=== PATIENT | male | born 1955 | race Caucasian/White ===

== ENCOUNTER → 2021-08-25 13:13 | Outpatient (BNVA) | payer BC, SELFPAY | PROVIDERS: PCP Physician Assistant Medical; Visit Provider Hospitalist | DX: U07.1 COVID-19 (principal); J84.10 Pulmonary fibrosis, unspecified | CPT/HCPCS: 94618 ==

== ENCOUNTER 2021-08-30 13:48 | Outpatient (REF) | payer BC, SELFPAY ==
--- NOTE | ~2021-08-30 | XR_ITS ---
EXAMINATION: XR CHEST CLINICAL INFORMATION: Pulmonary fibrosis. COMPARISON: None TECHNIQUE: 2 views of the chest were obtained. FINDINGS: The lungs are well-expanded with increased bilateral parahilar markings. No consolidation. The heart size is enlarged. There is moderate spondylosis dorsal spine. No lytic process. XR/XR chest 2V IMPRESSION: Moderate bilateral parahilar markings likely chronic interstitial changes. No acute pneumonic consolidation.
--- NOTE | 2021-08-30 14:36 | PFT_ITS ---
FLOWS: FEV1 80% of predicted at 2.32 L. FVC 67% of predicted at 2.61 L. FEV1 to FVC ratio of 0.89. No bronchodilator response except in small to medium airways. LUNG VOLUMES: Total lung capacity 61% of predicted at 3.80 L. Residual volume 60% of predicted at 1.30 L. Slow vital capacity 61% of predicted at 2.50 L. Expiratory reserve volume 12% of predicted at 0.13 L. Diffusion capacity is mildly decreased, diffusion capacity corrects to normal after adjustment for alveolar ventilation. IMPRESSION: Mild restrictive ventilatory defect with no bronchodilator response except in small to medium airways. Decreased expiratory reserve volume suggests extrathoracic restriction, likely secondary to abdominal obesity. MD TEETEE Allen/MODL / [id number]
== END 2021-08-30 13:49 | disposition home or self-care (01) ==
LOC: HO.RESP 13:48
PROVIDERS: PCP Physician Assistant Medical; Visit Provider Hospitalist
DX: J84.10 Pulmonary fibrosis, unspecified (principal); U07.1 COVID-19; F17.210 Nicotine dependence, cigarettes, uncomplicated; Z79.899 Other long term (current) drug therapy
CPT/HCPCS: 71046; 94060; 94727; 94729

== ENCOUNTER → 2021-09-22 10:32 | Outpatient (BNVA) | payer BC, SELFPAY | PROVIDERS: PCP Physician Assistant Medical; Visit Provider Hospitalist | DX: J84.10 Pulmonary fibrosis, unspecified (principal); J98.4 Other disorders of lung; U07.1 COVID-19; Z99.81 Dependence on supplemental oxygen | CPT/HCPCS: 99212 ==

== ENCOUNTER → 2021-11-20 13:31 | Outpatient (BNVA) | payer BC, SELFPAY | PROVIDERS: PCP Physician Assistant Medical; Visit Provider Hospitalist | DX: U07.1 COVID-19 (principal) ==

== ENCOUNTER → 2022-03-13 10:49 | Outpatient (BNVA) | payer MEDICARE, SELFPAY | PROVIDERS: PCP Physician Assistant Medical; Visit Provider Hospitalist | DX: J84.10 Pulmonary fibrosis, unspecified (principal); J98.4 Other disorders of lung; J41.8 Mixed simple and mucopurulent chronic bronchitis; R60.0 Localized edema | CPT/HCPCS: 94618; 99212 ==

== ENCOUNTER 2022-03-19 07:41 | Outpatient (REF) | payer MEDICARE, SELFPAY ==
--- NOTE | ~2022-03-19 | CT_ITS ---
EXAMINATION: CT CHEST WITHOUT CONTRAST CLINICAL INFORMATION: Pulmonary fibrosis COMPARISON: Previous chest x-ray August 2021 TECHNIQUE: Multidetector volumetric CT imaging of the chest was done including thin cut high-resolution imaging.. Axial MIP volume rendering provided. Sagittal and coronal reformatted images were obtained. This CT examination was performed using dose optimization techniques as appropriate, variously including the following: *Automated exposure control *Adjustment of mA and/or kV according to patient size (this includes techniques or standardized protocols for targeted exams where dose is matched to indication/reason for exam; i.e. extremities or head) *Use of iterative reconstruction technique DLP: 384 mGy-cm FINDINGS: LUNGS: The lung volumes are low. There are scattered areas of increased groundglass attenuation and interstitial increased interstitial markings. This is seen diffusely throughout the lungs. No bronchiectasis or honeycombing. No endobronchial or endotracheal lesion. There is a 3 mm left upper lobe nodule axial image 93 series 8. There is question of a 6 x 8 mm perivascular right lower lobe nodule axial image 158 series 8. MEDIASTINUM: The mediastinum is normal. CORONARY ARTERY CALCIFICATION: Mild coronary artery calcification. PLEURA: There is no pleural effusion. No pleural mass or thickening. AXILLA: No lymphadenopathy. UPPER ABDOMEN: Left renal cysts. Diverticulosis of the colon. OSSEOUS STRUCTURES: Degenerative changes of the spine. CT/CT chest wo IV con IMPRESSION: Low lung volumes and evidence of interstitial lung disease with increased diffuse areas of increased groundglass attenuation and interstitial markings. Question 6 x 8 mm right lower lobe nodule versus vessel dilatation. Follow-up contrast-enhanced chest CT recommended. 3 mm left upper lobe nodule. Fleischner guidelines were followed.
== END 2022-03-19 07:42 | disposition home or self-care (01) ==
LOC: HO.CT 07:41
PROVIDERS: PCP Physician Assistant Medical; Visit Provider Hospitalist
DX: J84.10 Pulmonary fibrosis, unspecified (principal); J98.4 Other disorders of lung; R05.9 Cough, unspecified; R06.00 Dyspnea, unspecified
CPT/HCPCS: 71250

== ENCOUNTER → 2022-05-04 10:44 | Outpatient (BNVA) | payer MEDICARE, SELFPAY | PROVIDERS: PCP Physician Assistant Medical; Visit Provider Hospitalist | DX: R06.00 Dyspnea, unspecified (principal); U09.9 Post COVID-19 condition, unspecified; R91.1 Solitary pulmonary nodule; J18.9 Pneumonia, unspecified organism; J98.4 Other disorders of lung; J41.8 Mixed simple and mucopurulent chronic bronchitis; J84.9 Interstitial pulmonary disease, unspecified; R60.0 Localized edema; J84.10 Pulmonary fibrosis, unspecified | CPT/HCPCS: 99212 ==

== ENCOUNTER 2022-07-05 09:00 | Outpatient (REF) | payer MEDICARE, SELFPAY ==
--- NOTE | ~2022-07-05 | CT_ITS ---
EXAMINATION: CT CHEST WITHOUT CONTRAST CLINICAL INFORMATION: Solitary pulmonary nodule. COMPARISON: CT chest 03/19/2022. TECHNIQUE: Multidetector volumetric CT imaging of the chest was done. Axial MIP volume rendering provided. Sagittal and coronal reformatted images were obtained. This CT examination was performed using dose optimization techniques as appropriate, variously including the following: *Automated exposure control *Adjustment of mA and/or kV according to patient size (this includes techniques or standardized protocols for targeted exams where dose is matched to indication/reason for exam; i.e. extremities or head) *Use of iterative reconstruction technique DLP: 308 mGy-cm. 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 LUNGS: The lungs are well expanded and clear of acute pneumonic process. There is mild ground-glass attenuation seen in both upper lobes and lower lobes with some focal sparing along the lateral segment of right lower lobe. There is ill-defined 2 cm opacity left lung base on axial image 400/7, stable. A 7 mm perivascular nodule in right lower lobe on axial image 443/7 is noted. A 3 mL nodule left upper lobe peripherally based axial image 200/7, stable. No additional nodules seen. No acute consolidation. MEDIASTINUM: Heart size and the great vessels are normal caliber. No pericardial effusion seen. Central trachea and the bronchi are widely patent. No pericardial effusion seen. Thyroid lobes are symmetrical and normal. CORONARY ARTERY CALCIFICATION: There are trace coronary artery calcifications present. PLEURA: There is no pleural effusion. No pleural mass or thickening. AXILLA: Small shotty lymph nodes are seen in the axilla. The chest wall is unremarkable. UPPER ABDOMEN: Visualized liver, spleen, pancreas and bilateral adrenal glands are unremarkable. No radiopaque gallstone seen. There is a left renal cyst. OSSEOUS STRUCTURES: No aggressive lytic or sclerotic process seen. There is mild ventral spondylosis mid and dorsal spine. CT/CT chest wo IV con IMPRESSION: 1. Stable bilateral pulmonary nodules. Linear nodule along the left lung base is stable as well. Ground-glass changes in both upper lobes and lower lobes are stable. 2. No abnormal mediastinal or axillary lymph nodes seen. Fleischner guidelines were followed.
== END 2022-07-05 09:01 | disposition home or self-care (01) ==
LOC: HO.CT 09:00
PROVIDERS: PCP Physician Assistant Medical; Visit Provider Hospitalist
DX: R91.1 Solitary pulmonary nodule (principal); J18.9 Pneumonia, unspecified organism
CPT/HCPCS: 71250

== ENCOUNTER → 2022-07-31 09:02 | Outpatient (BNVA) | payer MEDICARE, SELFPAY | PROVIDERS: PCP Physician Assistant Medical; Visit Provider Hospitalist | DX: J44.9 Chronic obstructive pulmonary disease, unspecified (principal); U09.9 Post COVID-19 condition, unspecified; J98.4 Other disorders of lung; J41.8 Mixed simple and mucopurulent chronic bronchitis; J18.9 Pneumonia, unspecified organism; J84.9 Interstitial pulmonary disease, unspecified; J84.10 Pulmonary fibrosis, unspecified; R91.1 Solitary pulmonary nodule; R60.0 Localized edema | CPT/HCPCS: 99212 ==

== ENCOUNTER 2022-09-27 09:59 | Outpatient (REF) | payer MEDICARE, SELFPAY ==
--- NOTE | 2022-09-27 11:56 | PFT_ITS ---
Forced vital capacity 62%, FEV1 71%, FEV1/FVC ratio is 84. [id number] 107% and MVV is 87%. Post bronchodilator therapy, no significant changes noted. Total lung capacity 63% and residual volume 53%. Diffusion capacity 86%. CONCLUSION: These results are consistent with moderately severe restrictive pulmonary disorder. No significant obstructive disorder. No significant response to bronchodilator therapy. Clinical correlation is recommended. MD KENNA Chowdary/TOY / [id number]
== END 2022-09-27 10:00 | disposition home or self-care (01) ==
LOC: HO.RESP 09:59
PROVIDERS: Visit Provider Hospitalist
DX: J84.9 Interstitial pulmonary disease, unspecified (principal)
CPT/HCPCS: 94060; 94727; 94729

== ENCOUNTER → 2022-12-24 15:30 | Outpatient (BNVA) | payer MEDICARE, SELFPAY | PROVIDERS: PCP Physician Assistant Medical; Visit Provider Hospitalist | DX: C76.0 Malignant neoplasm of head, face and neck (principal); J98.4 Other disorders of lung; J84.9 Interstitial pulmonary disease, unspecified; J96.00 Acute respiratory failure, unspecified whether with hypoxia or hypercapnia; J84.10 Pulmonary fibrosis, unspecified; U09.9 Post COVID-19 condition, unspecified; R13.10 Dysphagia, unspecified; R91.1 Solitary pulmonary nodule; Z99.81 Dependence on supplemental oxygen; Z92.3 Personal history of irradiation | CPT/HCPCS: 99212 ==

== ENCOUNTER 2023-04-29 09:35 | Outpatient (AMB) | payer MEDICARE, SELFPAY ==
[2023-04-29 09:35] VITALS: BP 132/72; PULSE 82; O2SAT 97; BMI 35.4
--- NOTE | 2023-04-29 09:35 | A.OFFVIS_ITS ---
Intake Vital Signs 04/29/23 09:35 Height 5 ft 6 in Weight 219 lb 5.759 oz BMI 35.4 BP 132/72 Blood Pressure Location Rt brachial Position Sitting Pulse 82 Pulse Source Doppler Pulse Oximetry (%) 97 Oxygen Delivery Method Room Air Intake Visit Reasons: chronic bronchitis Allergies lisinopril Allergy (Unknown, Verified 04/29/23 09:39) Unknown HPI HPI Comments History of Present Illness Details The patient is a 67-year-old gentleman who apparently was in her usual state health until back in May when he started developing respiratory complaints. He was diagnosed with COVID-19. He developed severe respiratory failure required ICU level of care. The patient did have bilateral COVID pneumonia. He was subsequently intubated and was kept in the ICU. Ultimately able to get liberated from the ventilator and placed on oxygen then the patient was sent to rehab where he was able to wean off oxygen. Patient overall is doing a lot better. He still working on his strength. He still has dyspnea on exertion moderate severity specially will going up a hill or flight of stairs. He had been working with physical therapy both for his weakness and also because of a sciatica pain. We did review his imaging studies from [facility] demonstrating bilateral airspace disease and likely some degree of scarring building up at the bases. On examination he also has some crackles at the bases suggesting that he does have some the pulmonary fibrosis. The patient did have a walking oximetry in the office he was able to maintain his pulse ox above 90%. The patient does not qualify for oxygen with activity. I will be testing him overnight to assess his oxygen requirements at nighttime while sleeping. The patient will undergo pulmonary function studies and will be appropriate candidate for pulmonary rehab to continue to treat him for his COVID-19. 05/04/2022 the patient is here for a pulm onary follow-up visit. Patient continues to have some dyspnea on exertion. [id number] severity. Not any better after using the Trelegy inhaler. Denies any significant chest pains or wheezing. Does have intermittent coughing. He did have a repeat CT scan in March 2022 that were personally reviewed in the office. He appears to have areas of ground-glass opacities bilaterally without any significant fibrosis. In addition to this he does have a new 6 x 8 mm pulmonary nodule. Therefore ba sed on the fact that he has significant symptoms along with the significant findings on the CT scan will go ahead and place him on some prednisone to see if we can relieve some of the information the patient is going to hold off on the Trelegy. Will plan to repeat the CT scan in 3 months follow-up with the pulmonary nodule finding. 07/31/2022 the patient is here for a pulm onary follow-up visit. He still complains of dyspnea on exertion. He has not been very active lately. He has not been exercising or rehabilitating. He did complete the prednisone. We did review his previous CT scan demonstrating the ground-glass opacities and pulmonary nodules. His most recent CT scan demonstrated interval improvement of the ground-glass opacities although now he does have reticular changes consis tent with the evolution of the pneumonitis now evolving into some scarring. Will have to see if this scarring continues to progress. If it does will consider antifibrotic agents. The pulmonary nodules appear to be stable which is reassuring. The patient also needs to go back to pulmonary rehabilitation as well. Will plan to follow-up with PFTs in the next 3-4 months. If we see any progression of his restrictive lung disease then will consider antifibrotic agents. 12/24/2022 the patient is here for a pulm onary follow-up visit. Since we last spoke he was diagnosed with head and neck cancer and just completed radiation therapy. He has significant dysphagia. He had to go to the ER because of significant dehydration. He was found to have significant hypokalemia and was given multiple infusions of IV potassium. He still has a hard time with swallow. He did follow-up with ENT today. He was started on antibiotics for what appears to be an abscess in his posterior pharynx or larynx. The patient also was given lighted cane rinses. We did talk about other alternatives including chlorhexidine mouthwash and prednisone. The patient is not better this should be contemplated with his ENT doctor. In meantime the patient has not had blood work since the will go ahead and give him additional blood work that he can do specially after starting antibiotics if he is not taking anything by mouth. He does have a follow-up with his primary care doctor next week as well. From a respiratory status the patient has not been using any of his nebulized treatments at this time. Clinically from a respiratory status he is doing okay. 04/29/2023 the patient is here for pulelsie figueroa follow-up visit. Overall the patient has been doing well. Completed radiation and is dysphagia is improved. He still has some taste changes. Although he has been able to to take in by mouth. The electrolyte issues have improved. The patient did have a PET scan demonstrating no evidence of any active cancer. Although it did show diverticulitis. He did develop abdominal pain went to [place] where he was again confirmed to have diverticulitis and treated with antibiotics. He did go again for a 2nd time with diverticulitis and now is on antibiotics. Does he was discharged over the weekend. He feels better overall. The patient was not offer surgery. He has continue the antibiotics and monitoring his oral intake. His respiratory status is stable. I will review the imaging studies to assess his interstitial lung disease. He does have the oxygen at nighttime that uses. I did encourage him to use it every night. Will do an overnight oximetry on room air in 3 months to see if he still needs it. He does have a history sleep apnea though so at some point if she still having symptoms he should get a potential sleep study to assess him for obstructive sleep apnea and need for CPAP therapy. COUNT INCLUDES THE [facility] Medical History (Updated 04/29/23 @ 20:37 by Noe Huffman MD) Head and neck cancer ILD (interstitial lung disease) Pneumonitis Pulmonary nodule Lower extremity edema Dyspnea Chronic bronchitis Cough Chronic restrictive lung disease COVID-19 Pulmonary fibrosis Social History Household Members: Spouse Household Members Other:: Kristen - Patient Tobacco Use Status: Never used Tobacco Second Hand Smoke Exposure: No Review of Systems Const Reports fatigue and Reports weight loss Eyes Denies change in vision ENT Denies dysphagia, Denies mouth lesions, Denies odynophagia and Denies sore throat Card Denies chest pain and Reports dyspnea on exertion Resp Reports cough, Denies hemoptysis, Reports dyspnea on exertion and Denies wheezing GI Reports as per HPI, Reports abdominal pain, Denies dysphagia and Denies odynophagia Musc Reports no additional complaints Skin/Breast Denies rash Endo Reports fatigue Aller/Immun Denies wheezing Physical Exam Vital Signs: Last Vital Signs Pulse 82 04/29/23 09:35 BP 132/72 04/29/23 09:35 Pulse Ox 97 04/29/23 09:35 Oxygen Delivery Method Room Air 04/29/23 09:35 BMI result Body Mass Index 35.4 Const General: alert Neck Neck: Yes normal visual inspection, Yes full ROM and Yes no lymphadenopathy Chest Chest palpation & inspection: normal inspection of the chest Resp Auscultation: no rhonchi, no wheezes and diminished lung sounds Cardio Rate: regular rate Rhythm: regular rhythm Heart sounds: S1 normal heart sound present and S2 normal heart sound present GI Palpation (GI): Soft to palpation and nontender Auscultation: normal bowel sounds Skin General skin exam: rashes and/or lesions noted Extrem General: Yes edema Assessment & Plan Assessment & Plan (1) Chronic restrictive lung disease: Comment: Moderate in severity Code(s): J98.4 - Other disorders of lung (2) Chronic bronchitis: Code(s): J42 - Unspecified chronic bronchitis Qualifiers: Chronic bronchitis type: mixed simple and mucopurulent Qualified Code(s): J41.8 - Mixed simple and mucopurulent chronic bronchitis (3) Pulmonary nodule: Comment: new 6x8 mm nodule Code(s): R91.1 - Solitary pulmonary nodule (4) ILD (interstitial lung disease): Code(s): J84.9 - Interstitial pulmonary disease, unspecified (5) Pulmonary fibrosis: Code(s): J84.10 - Pulmonary fibrosis, unspecified (6) Head and neck cancer: Comment: PET negative Code(s): C76.0 - Malignant neoplasm of head, face and neck Plan Continue oxygen 2 L at nighttime, overnight oximetry in 3 months consider an in lab PSG YOLANDA as needed nebs as needed F/U 6 months Orders: Orders Overnight Pulse Oximetry 3 Months J98.4 - Other disorders of lung Coding Level of Care Code Est Pt Level 4 (26492) Diagnoses Chronic restrictive lung disease J98.4 Mixed simple and mucopurulent chronic bronchitis J41.8 Chronic bronchitis type: mixed simple and mucopurulent Pulmonary nodule R91.1 ILD (interstitial lung disease) J84.9 Pulmonary fibrosis J84.10 Head and neck cancer C76.0 Time Spent (min) 17
== END 2023-04-29 10:00 | disposition home or self-care (01) ==
PROVIDERS: PCP Physician Assistant Medical; Visit Provider Hospitalist
DX: J98.4 Other disorders of lung (principal); J41.8 Mixed simple and mucopurulent chronic bronchitis; R91.1 Solitary pulmonary nodule; J84.9 Interstitial pulmonary disease, unspecified; J84.10 Pulmonary fibrosis, unspecified; C76.0 Malignant neoplasm of head, face and neck
CPT/HCPCS: 99214

== ENCOUNTER → 2023-04-29 09:35 | Outpatient (BNVA) | payer MEDICARE, SELFPAY | PROVIDERS: PCP Physician Assistant Medical; Visit Provider Hospitalist | DX: J98.4 Other disorders of lung (principal); J41.8 Mixed simple and mucopurulent chronic bronchitis; R91.1 Solitary pulmonary nodule; J84.9 Interstitial pulmonary disease, unspecified; J84.10 Pulmonary fibrosis, unspecified; C76.0 Malignant neoplasm of head, face and neck | CPT/HCPCS: 99212 ==

== ENCOUNTER 2023-10-21 09:27 | Outpatient (AMB) | payer MEDICARE, SELFPAY ==
[2023-10-21 10:23] VITALS: PULSE 85; O2SAT 97; BMI 36.5
--- NOTE | 2023-10-21 10:23 | A.OFFVIS_ITS ---
Vital Signs 10/21/23 10:23 Height 5 ft 6 in Weight 226 lb BMI 36.5 Pulse 85 Pulse Source Pulse Oximeter Pulse Oximetry (%) 97 Oxygen Delivery Method Room Air Intake Visit Reasons: chronic bronchitis Account Services Manager Required: No Allergies lisinopril Allergy (Unknown, Verified 10/21/23 10:24) Unknown HPI Comments Details: The patient is a 67-year-old gentleman who apparently was in her usual state health until back in May when he started developing respiratory complaints. He was diagnosed with COVID-19. He developed severe respiratory failure required ICU level of care. The patient did have bilateral COVID pneumonia. He was subsequently intubated and was kept in the ICU. Ultimately able to get liberated from the ventilator and placed on oxygen then the patient was sent to rehab where he was able to wean off oxygen. Patient overall is doing a lot better. He still working on his strength. He still has dyspnea on exertion moderate severity specially will going up a hill or flight of stairs. He had been working with physical therapy both for his weakness and also because of a sciatica pain. We did review his imaging studies from [facility] demonstrating bilateral airspace disease and likely some degree of scarring building up at the bases. On examination he also has some crackles at the bases suggesting that he does have some the pulmonary fibrosis. The patient did have a walking oximetry in the office he was able to maintain his pulse ox above 90%. The patient does not qualify for oxygen with activity. I will be testing him overnight to assess his oxygen requirements at nighttime while sleeping. The patient will undergo pulmonary function studies and will be appropriate candidate for pulmonary rehab to continue to treat him for his COVID-19. 05/04/2022 the patient is here for a pulmonary follow-up visit. Patient continues to have some dyspnea on exertion. Aore-en-tiffkoqf severity. Not any better after using the Trelegy inhaler. Denies any significant chest pains or wheezing. Does have intermittent coughing. He did have a repeat CT scan in March 2022 that were personally reviewed in the office. He appears to have areas of ground-glass opacities bilaterally without any significant fibrosis. In addition to this he does have a new 6 x 8 mm pulmonary nodule. Therefore based on the fact that he has significant symptoms along with the significant findings on the CT scan will go ahead and place him on some prednisone to see if we can relieve some of the information the patient is going to hold off on the Trelegy. Will plan to repeat the CT scan in 3 months follow-up with the pulmonary nodule finding. 07/31/2022 the patient is here for a pulmonary follow-up visit. He still complains of dyspnea on exertion. He has not been very active lately. He has not been exercising or rehabilitating. He did complete the prednisone. We did review his previous CT scan demonstrating the ground-glass opacities and pulmonary nodules. His most recent CT scan demonstrated interval improvement of the ground-glass opacities although now he does have reticular changes consistent with the evolution of the pneumonitis now evolving into some scarring. Will have to see if this scarring continues to progress. If it does will consider antifibrotic agents. The pulmonary nodules appear to be stable which is reassuring. The patient also needs to go back to pulmonary rehabilitation as well. Will plan to follow-up with PFTs in the next 3-4 months. If we see any progression of his restrictive lung disease then will consider antifibrotic agents. 12/24/2022 the patient is here for a pulmonary follow-up visit. Since we last spoke he was diagnosed with head and neck cancer and just completed radiation therapy. He has significant dysphagia. He had to go to the ER because of significant dehydration. He was found to have significant hypokalemia and was given multiple infusions of IV potassium. He still has a hard time with swallow. He did follow-up with ENT today. He was started on antibiotics for what appears to be an abscess in his posterior pharynx or larynx. The patient also was given lighted cane rinses. We did talk about other alternatives including chlorhexidine mouthwash and prednisone. The patient is not better this should be contemplated with his ENT doctor. In meantime the patient has not had blood work since the go ahead and give him additional blood work that he can do specially after starting antibiotics if he is not taking anything by mouth. He does have a follow-up with his primary care doctor next week as well. From a respiratory status the patient has not been using any of his nebulized treatments at this time. Clinically from a respiratory status he is doing okay. 04/29/2023 the patient is here for pulmonary follow-up visit. Overall the patient has been doing well. Completed radiation and is dysphagia is improved. He still has some taste changes. Although he has been able to to take in by mouth. The electrolyte issues have improved. The patient did have a PET scan demonstrating no evidence of any active cancer. Although it did show d iverticulitis. He did develop abdominal pain went to [facility] where he was again confirmed to have diverticulitis and treated with antibiotics. He did go again for a 2nd time with diverticulitis and now is on antibiotics. Does he was discharged over the weekend. He feels better overall. The patient was not offer surgery. He has continue the antibiotics and monitoring his oral intake. His respiratory status is stable. I will review the imaging studies to assess his interstitial lung disease. He does have the oxygen at nighttime that uses. I did encourage him to use it every night. Will do an overnight oximetry on room air in 3 months to see if he still needs it. He does have a history sleep apnea though so at some point if she still having symptoms he should get a potential sleep study to assess him for obstructive sleep apnea and need for CPAP therapy. 10/21/2023 the patient is here for pulmonary follow-up visit. Last several weeks the patient became sick with respiratory illness. He was seen by primary care doctor. Initially placed on antibiotics with only some improvement. Then he was started on some prednisone and his cough significantly improved. Now is completing a course of doxycycline. His all completed the prednisone. We did review his last CT scan back in July 2022 demonstrating pulmonary nodules and interstitial lung disease. The patient will require repeat CT scan this time. In meantime he has been using oxygen at nighttime at 2 L. the oxygen therapy has been affecting beneficial. We did also do an overnight oximetry the patient still qualify for oxygen. Therefore she continue the oxygen at this time. He does have an elevated Maramec score with daytime drowsiness 04/23. The patient will benefit from an in-lab sleep study. However the patient is reluctant at this time since he has had difficulty with CPAP in the past. He will consider it at this time. [facility] Medical History (Updated 04/29/23 @ 20:37 by Noe Huffman MD) Head and neck cancer ILD (interstitial lung disease) Pneumonitis Pulmonary nodule Lower extremity edema Dyspnea Chronic bronchitis Cough Chronic restrictive lung disease COVID-19 Pulmonary fibrosis Social History Household Members: Spouse Household Members Other:: Kristen - Patient Tobacco Use Status: Never used Tobacco Second Hand Smoke Exposure: No Review of Systems Const Reports daytime sleepiness, Reports fatigue and Reports weight loss Eyes Denies change in vision ENT Denies dysphagia, Denies mouth lesions, Denies odynophagia and Denies sore throat Card Denies chest pain and Reports dyspnea on exertion Resp Reports cough, Denies hemoptysis, Reports dyspnea on exertion and Denies wheezing GI Reports as per HPI, Reports abdominal pain, Denies dysphagia and Denies odynophagia Musc Reports no additional complaints Skin/Breast Denies rash Endo Reports fatigue Aller/Immun Denies wheezing Physical Exam Vital Signs: Last Vital Signs Pulse 85 10/21/23 10:23 Pulse Ox 97 10/21/23 10:23 Oxygen Delivery Method Room Air 10/21/23 10:23 BMI result Body Mass Index 36.5 Const General: alert Neck Neck: Yes normal visual inspection, Yes full ROM and Yes no lymphadenopathy Chest Chest palpation & inspection: normal inspection of the chest Resp Auscultation: no rhonchi, no wheezes and diminished lung sounds Cardio Rate: regular rate Rhythm: regular rhythm Heart sounds: S1 normal heart sound present and S2 normal heart sound present GI Palpation (GI): Soft to palpation and nontender Auscultation: normal bowel sounds Skin General skin exam: rashes and/or lesions noted Extrem General: Yes edema Assessment & Plan Assessment & Plan (1) Chronic restrictive lung disease: Comment: Moderate in severity Code(s): J98.4 - Other disorders of lung Category: Medical (2) Chronic bronchitis: Code(s): J42 - Unspecified chronic bronchitis Category: Medical Qualifiers: Chronic bronchitis type: mixed simple and mucopurulent Qualified Co de(s): J41.8 - Mixed simple and mucopurulent chronic bronchitis (3) Pulmonary nodule: Comment: new 6x8 mm nodule Code(s): R91.1 - Solitary pulmonary nodule Category: Medical (4) ILD (interstitial lung disease): Code(s): J84.9 - Interstitial pulmonary disease, unspecified Category: Medical (5) Pulmonary fibrosis: Code(s): J84.10 - Pulmonary fibrosis, unspecified Category: Medical (6) Head and neck cancer: Comment: PET negative Code(s): C76.0 - Malignant neoplasm of head, face and neck Category: Medical Plan Continue oxygen 2 L at nighttime consider an in lab PSG CT chest YOLANDA as needed nebs as needed Arexvy Fall 2023 F/U 6 months Orders: Orders CT chest wo IV con 6 Weeks R91.1 - Solitary pulmonary nodule Medications: Refilled ProAir HFA 90 mcg/actuation (albuterol sulfate) 2 puffs inhalation Q4H PRN 8.5 grams 11RF for wheezing NS
== END 2023-10-21 10:46 | disposition home or self-care (01) ==
PROVIDERS: PCP Physician Assistant Medical; Visit Provider Hospitalist
DX: J98.4 Other disorders of lung (principal); J41.8 Mixed simple and mucopurulent chronic bronchitis; R91.1 Solitary pulmonary nodule; J84.9 Interstitial pulmonary disease, unspecified; J84.10 Pulmonary fibrosis, unspecified; C76.0 Malignant neoplasm of head, face and neck
CPT/HCPCS: 99214

== ENCOUNTER → 2023-10-21 09:27 | Outpatient (BNVA) | payer MEDICARE, SELFPAY | PROVIDERS: PCP Physician Assistant Medical; Visit Provider Hospitalist | DX: J42 Unspecified chronic bronchitis (principal); J98.4 Other disorders of lung; R91.1 Solitary pulmonary nodule; J84.9 Interstitial pulmonary disease, unspecified; J84.10 Pulmonary fibrosis, unspecified; C76.0 Malignant neoplasm of head, face and neck | CPT/HCPCS: 99212 ==

== ENCOUNTER 2023-10-31 15:21 | Outpatient (AMB) | payer MEDICARE, SELFPAY ==
[2023-10-31 15:30] VITALS: PULSE 89; O2SAT 95; BMI 37.2
--- NOTE | 2023-10-31 15:30 | A.OFFVIS_ITS ---
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 He was diagnosed with COVID-19. He developed severe respiratory failure required ICU level of care. The patient did have bilateral COVID pneumonia. He was subsequently intubated and was kept in the ICU. Ultimately able to get liberated from the ventilator and placed on oxygen then the patient was sent to rehab where he was able to wean off oxygen. Patient overall is doing a lot better. He still working on his strength. He still has dyspnea on exertion moderate severity specially will going up a hill or flight of stairs. He had been working with physical therapy both for his weakness and also because of a sciatica pain. We did review his imaging studies from [facility] demonstrating bilateral airspace disease and likely some degree of scarring building up at the bases. On examination he also has some crackles at the bases suggesting that he does have some the pulmonary fibrosis. The patient did have a walking oximetry in the office he was able to maintain his pulse ox above 90%. The patient does not qualify for oxygen with activity. I will be testing him overnight to assess his oxygen requirements at nighttime while sleeping. The patient will undergo pulmonary function studies and will be appropriate candidate for pulmonary rehab to continue to treat him for his COVID-19. 05/04/2022 the patient is here for a pulmonary follow-up visit. Patient continues to have some dyspnea on exertion. Erbo-[id number]-[id number] severity. Not any better after using the Trelegy inhaler. Denies any significant chest pains or wheezing. Does have intermittent coughing. He did have a repeat CT scan in March 2022 that were personally reviewed in the office. He appears to have areas of ground-glass opacities bilaterally without any significant fibrosis. In addition to this he does have a new 6 x 8 mm pulmonary nodule. Therefore based on the fact that he has significant symptoms along with the significant findings on the CT scan will go ahead and place him on some prednisone to see if we can relieve some of the information the patient is going to hold off on the Trelegy. Will plan to repeat the CT scan in 3 months follow-up with the pulmonary nodule finding. 07/31/2022 the patient is here for a pulmonary follow-up visit. He still complains of dyspnea on exertion. He has not been very active lately. He has not been exercising or rehabilitating. He did complete the prednisone. We did review his previous CT scan demonstrating the ground-glass opacities and pu lmonary nodules. His most recent CT scan demonstrated interval improvement of the ground-glass opacities although now he does have reticular changes consistent with the evolution of the pneumonitis now evolving into some scarring. Will have to see if this scarring continues to progress. If it does will consider antifibrotic agents. The pulmonary nodules appear to be stable which is reassuring. The patient also needs to go back to pulmonary rehabilitation as well. Will plan to follow-up with PFTs in the next 3-4 months. If we see any progression of his restrictive lung disease then will consider antifibrotic agents. 12/24/2022 the patient is here for a pulmonary follow-up visit. Since we last spoke he was diagnosed with head and neck cancer and just completed radiation therapy. He has significant dysphagia. He had to go to the ER because of significant dehydration. He was found to have significant hypokalemia and was given multiple infusions of IV potassium. He still has a hard time with swallow. He did follow-up with ENT today. He was started on antibiotics for what appears to be an abscess in his posterior pharynx or larynx. The patient also was given lighted cane rinses. We did talk about other alternatives including chlorhexidine mouthwash and prednisone. The patient is not better this should be contemplated with his ENT doctor. In meantime the patient has not had blood work since the go ahead and give him additional blood work that he can do specially after starting antibiotics if he is not taking anything by mouth. He does have a follow-up with his primary care doctor next week as well. From a respiratory status the patient has not been using any of his nebulized treatments at this time. Clinically from a respiratory status he is doing okay. 04/29/2023 the patient is here for pulmonary follow-up visit. Overall the patient has been doing well. Completed radiation and is dysphagia is improved. He still has some taste changes. Although he has been able to to take in by mouth. The electrolyte issues have improved. The patient did have a PET scan demonstrating no evidence of any active cancer. Although it did show diverticu litis. He did develop abdominal pain went to [place] where he was again confirmed to have diverticulitis and treated with antibiotics. He did go again for a 2nd time with diverticulitis and now is on antibiotics. Does he was discharged over the weekend. He feels better overall. The patient was not offer surgery. He has continue the antibiotics and monitoring his oral intake. His respiratory s tatus is stable. I will review the imaging studies to assess his interstitial lung disease. He does have the oxygen at nighttime that uses. I did encourage him to use it every night. Will do an overnight oximetry on room air in 3 months to see if he still needs it. He does have a history sleep apnea though so at some point if she still having symptoms he should get a potential sleep study to assess him for obstructive sleep apnea and need for CPAP therapy. 10/21/2023 the patient is here for pulmonary follow-up visit. Last several weeks the patient became sick with respiratory illness. He was seen by primary care doctor. Initially placed on antibiotics with only some improvement. Then he was started on some prednisone and his cough significantly improved. Now is completing a course of doxycycline. His all completed the prednisone. We did review his last CT scan back in July 2022 demonstrating pulmonary nodules and interstitial lung disease. The patient will require repeat CT scan this time. In meantime he has been using oxygen at nighttime at 2 L. the oxygen therapy has been affecting beneficial. We did also do an overnight oximetry the patient still qualify for oxygen. Therefore she continue the oxygen at this time. He does have an elevated Nicolaus score with daytime drowsiness 04/23. The patient will benefit from an in-lab sleep study. However the patient is reluctant at this time since he has had difficulty with CPAP in the past. He will consider it at this time. 10/31/2023 the patient is here for sick visit. He has been having hard time with his breathing. He was evaluated back late September and at that point was having worsening respiratory symptoms he was prescribed doxycycline and also prednisone. However, the patient is no better. Now he is more congested. Moderate severity. The phlegm is greenish in color. In the office with significant wheezing we did provide him with 2 DuoNeb treatments in the he did improve. Therefore we held the Solu-Medrol. Still he is going to require additional prednisone and also will require nebulizer treatments 3 to 4 times a day. Will go ahead and place him Augmentin to treat him further for a lower respiratory bacterial infection. This is likely a postviral bacterial infection since he was sick several weeks ago. [facility] Medical History (Updated 10/31/23 @ 23:12 by Noe Huffman MD) COPD (chronic obstructive pulmonary disease) Head and neck cancer ILD (interstitial lung disease) Pneumonitis Pulmonary nodule Lower extremity edema Dyspnea Chronic bronchitis Cough Chronic restrictive lung disease COVID-19 Pulmonary fibrosis Social History Household Members: Spouse Household Members Other:: Kristen - Patient Tobacco Use Status: Never used Tobacco Second Hand Smoke Exposure: No Review of Systems Const Reports daytime sleepiness, Reports fatigue and Reports weight loss Eyes Denies change in vision ENT Denies dysphagia, Denies mouth lesions, Denies odynophagia and Denies sore throat Card Denies chest pain and Reports dyspnea on exertion Resp Reports change in phlegm color, Reports chest congestion, Reports cough, Denies hemoptysis, Reports excessive phlegm production, Reports dyspnea on exertion and Reports wheezing GI Reports as per HPI, Reports abdominal pain, Denies dysphagia and Denies odynophagia Musc Reports no additional complaints Skin/Breast Denies rash Endo Reports fatigue Aller/Immun Reports wheezing Physical Exam Vital Signs: Last Vital Signs Pulse 89 10/31/23 15:30 Pulse Ox 95 10/31/23 15:30 Oxygen Delivery Method Room Air 10/31/23 15:30 BMI result Body Mass Index 37.2 Const General: alert Neck Neck: Yes normal visual inspection, Yes full ROM and Yes no lymphadenopathy Chest Chest palpation & inspection: normal inspection of the chest Resp Effort & Inspection: prolonged expiratory phase Auscultation: rhonchi, wheezes and diminished lung sounds Cardio Rate: regular rate Rhythm: regular rhythm Heart sounds: S1 normal heart sound present and S2 normal heart sound present GI Palpation (GI): Soft to palpation and nontender Auscultation: normal bowel sounds Skin General skin exam: rashes and/or lesions noted Extrem General: Yes edema Office Procedures Nebulizer Treatment Nebulizer Treatment [id number]/[id number] RX initial, or Nebulizer Subsequent Treatment Office Meds ipratropium 0.5 mg-albuterol 3 mg (2.5 mg base)/3 mL nebulization soln Performing Provider: Noe Huffman MD Performing Location: [facility] Administered by: Rayne Downing LPN on 10/31/23 15:43 Dose Route Admin Location Dispensed Lot Number Expiration Date [facility] [employer] 3 mL inhalation 3 mL [id number] 04/30/25 02251-312-21 [employer] Assessment & Plan Assessment & Plan (1) COPD (chronic obstructive pulmonary disease): Code(s): J44.9 - Chronic obstructive pulmonary disease, unspecified Category: Medical Qualifiers: COPD type: COPD with acute lower respiratory infection Qualified Code(s): J44.0 - Chronic obstructive pulmonary disease with (acute) lower respiratory infection (2) Chronic restrictive lung disease: Comment: Moderate in severity Code(s): J98.4 - Other disorders of lung Category: Medical (3) Chronic bronchitis: Code(s): J42 - Unspecified chronic bronchitis Category: Medical Qualifiers: Chronic bronchitis type: mixed simple and mucopurulent Qualified Code(s): J41.8 - Mixed simple and mucopurulent chronic bronchitis (4) Pulmonary nodule: Comment: new 6x8 mm nodule Code(s): R91.1 - Solitary pulmonary nodule Category: Medical (5) ILD (interstitial lung disease): Code(s): J84.9 - Interstitial pulmonary disease, unspecified Category: Medical (6) Pulmonary fibrosis: Code(s): J84.10 - Pulmonary fibrosis, unspecified Category: Medical (7) Head and neck cancer: Comment: PET negative Code(s): C76.0 - Malignant neoplasm of head, face and neck Category: Medical Plan start Augmentin sraer prednisone taper start nebs 3-4 times a day start Mucinex Continue oxygen 2 L at nighttime consider an in lab PSG YOLANDA as needed Arexvy Fall 2023 F/U 6 months Orders: Orders AMB Nebulizer Treatment Today J98.4 - Other disorders of lung Medications: New amoxicillin-pot clavulanate 875-125 mg 1 tab PO BID 20 tabs 0RF 10 days prednisone PO daily; Take 2 tabs daily x 5 days, then 1 tablet daily x 5 days 15 tabs 0RF 10 days Coding Level of Care Code Est Pt Level 4 (43888) Diagnoses Chronic obstructive pulmonary disease with acute lower respiratory infection J44.0 COPD type: COPD with acute lower respiratory infection Chronic restrictive lung disease J98.4 Mixed simple and mucopurulent chronic bronchitis J41.8 Chronic bronchitis type: mixed simple and mucopurulent Pulmonary nodule R91.1 ILD (interstitial lung disease) J84.9 Pulmonary fibrosis J84.10 Head and neck cancer C76.0 CPT Codes Nebulizer Treatment - Nebulizer Treatment, initial or subsequent: [id number] Nebulizer/MDI RX initial, or Nebulizer Subsequent Treatment ([id number]) Time Spent (min) 17
== END 2023-10-31 15:58 | disposition home or self-care (01) ==
PROVIDERS: PCP Physician Assistant Medical; Visit Provider Hospitalist
DX: J44.0 Chronic obstructive pulmonary disease with (acute) lower respiratory infection (principal); J98.4 Other disorders of lung; R91.1 Solitary pulmonary nodule; J84.9 Interstitial pulmonary disease, unspecified; J84.10 Pulmonary fibrosis, unspecified; C76.0 Malignant neoplasm of head, face and neck
CPT/HCPCS: 99214

== ENCOUNTER → 2023-10-31 15:21 | Outpatient (BNVA) | payer MEDICARE, SELFPAY | PROVIDERS: PCP Physician Assistant Medical; Visit Provider Hospitalist | DX: J44.0 Chronic obstructive pulmonary disease with (acute) lower respiratory infection (principal); J98.4 Other disorders of lung; J41.8 Mixed simple and mucopurulent chronic bronchitis; J84.9 Interstitial pulmonary disease, unspecified; J84.10 Pulmonary fibrosis, unspecified; R91.1 Solitary pulmonary nodule; C76.0 Malignant neoplasm of head, face and neck | CPT/HCPCS: 94640; 99212 ==

== ENCOUNTER 2023-11-27 07:06 | Outpatient (REF) | payer MEDICARE, SELFPAY ==
--- NOTE | ~2023-11-27 | XR_ITS ---
EXAMINATION: XR SHOULDER, RIGHT CLINICAL INFORMATION: Pain in right shoulder. COMPARISON: None available. TECHNIQUE: 2 views of the right shoulder. FINDINGS: The bones are diffusely demineralized. Degenerative changes in the acromioclavicular joint with joint space narrowing and hypertrophic change. Advanced degenerative changes with hypertrophic change and periarticular sclerosis along the glenohumeral joint. Small calcifications adjacent to the greater tuberosity and along the superior aspect of the acromioclavicular joint. Radiopaque devices, at least some of which appear to represent buttons overlie the partially imaged right upper thorax. XR/XR shoulder RT min 2V IMPRESSION: 1. Advanced degenerative changes in the glenohumeral joint. 2. Degenerative changes in the acromioclavicular joint.
== END 2023-11-27 07:07 | disposition home or self-care (01) ==
LOC: HO.HOSX 07:06
PROVIDERS: Visit Provider Orthopaedic Surgery
DX: M25.511 Pain in right shoulder (principal); M25.311 Other instability, right shoulder
CPT/HCPCS: 73030; 99212

== ENCOUNTER 2023-11-27 09:52 | Outpatient (AMB) | payer MEDICARE, SELFPAY ==
[2023-11-27 09:55] VITALS: BMI 37.1
--- NOTE | 2023-11-27 09:55 | MHC.OFFVIS ---
Vital Signs 11/27/23 09:55 Height 5 ft 6 in Weight 230 lb BMI 37.1 Intake Visit Reasons: New Pt - Right Shoulder Pain Intake Note: Alexander is a 68 year old Right hand dominant male who presents with complaints of progressively worsening right shoulder pain and weakness. The patient states that he injured his right shoulder approximately 6 months ago when he fell down a flight of stairs. Since that time he has had difficulty lifting his right hand above shoulder height. He has done physical therapy exercises which aggravated his pain. He has failed the last 6 weeks of conservative treatment. Has tried Tylenol and anti-inflammatory medicines which gave him minimal relief. He did have a cortisone injection which gave him no relief. He has also gone to formal physical therapy. Allergies lisinopril Allergy (Unknown, Verified 11/27/23 10:15) Unknown Medication List - Last Reconciled 11/27/23 by Hebert Heredia MD alfuzosin ER 10 mg PO DAILY amoxicillin-pot clavulanate 875-125 mg 1 tab PO BID 10 days aspirin 81 mg PO DAILY atorvastatin 10 mg PO DAILY budesonide 0.5 mg (2 mL) inhalation DAILY 30 days citalopram 20 mg PO DAILY finasteride 5 mg PO DAILY gabapentin 200 mg PO BID levalbuterol HCl 1.25 mg (3 mL) inhalation BID losartan 25 mg PO DAILY Oxygen Home Use As directed prednisone PO daily; Take 2 tabs daily x 5 days, then 1 tablet daily x 5 days 10 days ProAir HFA 90 mcg/actuation (albuterol sulfate) 2 puffs inhalation Q4H PRN NS PFSH Medical History (Updated 11/27/23 @ 07:07 by Hebert Heredia MD) COPD (chronic obstructive pulmonary disease) Head and neck cancer ILD (interstitial lung disease) Pneumonitis Pulmonary nodule Lower extremity edema Dyspnea Chronic bronchitis Cough Chronic restrictive lung disease COVID-19 Pulmonary fibrosis Surgical History (Updated 11/27/23 @ 10:16 by Rebecca Moody CMA) History of bilateral carpal tunnel release Hx of umbilical hernia repair Social History (Updated 11/27/23 @ 10:16 by Rebecca Moody CMA) Household Members: Spouse Household Members Other:: Kristen - Patient Tobacco Use Status: Never used Tobacco Second Hand Smoke Exposure: No Current occupational status: retired Current occupation: Right hand dominant Physical Exam Vital Signs: BMI result Body Mass Index 37.1 Const Other: Well-nourished well-developed very friendly male awake alert and oriented x3 in no acute distress Extrem Other: Bilateral upper extremity examination shows good capillary refill, no skin lesions noted, normal sensation light touch Right shoulder examination shows full passive range of motion but decreased active range of motion to his left shoulder, 4/5 strength with supraspinatus testing, positive impingement signs, tenderness over his acromioclavicular joint, no instability Results Reviewed Results Reviewed: X-rays of the patient's right shoulder show severe acromioclavicular joint narrowing, a type 2 acromion, no acute bony abnormalities Assessment & Plan Assessment & Plan (1) Right shoulder pain: Code(s): M25.511 - Pain in right shoulder Category: Medical Plan Mr. Uriostegui presents with progressively worsening right shoulder pain and weakness most likely due to a full-thickness rotator cuff tear. Thus, I will send the patient for an MRI of his right shoulder for further evaluation. I will see him back once the MRI is completed to discuss the findings and treatment options. He will continue with his stretching exercises in the meantime to prevent stiffness. Feel free to call me at any time should questions regarding his orthopedic management arise. I spent 21 minutes in reviewing the patient's records and imaging studies, seeing the patient and documenting in the medical record. Orders: Orders XR shoulder RT min 2V 11/27/23 M25.511 - Pain in right shoulder MR shoulder RT wo con 11/27/23 M25.311 - Other instability, right shoulder Coding Level of Care Code Est Pt Level 3 (49095) Diagnoses Right shoulder pain M25.511
== END 2023-11-27 10:26 | disposition home or self-care (01) ==
PROVIDERS: PCP Physician Assistant Medical; Visit Provider Orthopaedic Surgery
DX: M25.511 Pain in right shoulder (principal)
CPT/HCPCS: 99213

== ENCOUNTER 2023-12-17 10:34 | Outpatient (AMB) | payer MEDICARE, SELFPAY ==
--- NOTE | 2023-12-17 10:38 | MHC.OFFVIS ---
Vital Signs 12/17/23 10:40 Height 5 ft 6 in Weight 230 lb BMI 37.1 Intake Visit Reasons: OV-Right shoulder MRI review Intake Note: Alexander is a 68 year old male who presents for follow-up of his right shoulder pain. He has been doing [id number] exercises which gave him fairly good relief. He reports mild discomfort in his right shoulder. He is considering seeing a chiropractor for his shoulder pain. He wishes to hold off on surgery if at all possible. Allergies lisinopril Allergy (Unknown, Verified 11/27/23 10:15) Unknown Medication List - Last Reconciled 12/17/23 by Hebert Heredia MD alfuzosin ER 10 mg PO DAILY amoxicillin-pot clavulanate 875-125 mg 1 tab PO BID 10 days aspirin 81 mg PO DAILY atorvastatin 10 mg PO DAILY budesonide 0.5 mg (2 mL) inhalation DAILY 30 days citalopram 20 mg PO DAILY finasteride 5 mg PO DAILY gabapentin 200 mg PO BID levalbuterol HCl 1.25 mg (3 mL) inhalation BID losartan 25 mg PO DAILY Oxygen Home Use As directed prednisone PO daily; Take 2 tabs daily x 5 days, then 1 tablet daily x 5 days 10 days ProAir HFA 90 mcg/actuation (albuterol sulfate) 2 puffs inhalation Q4H PRN NS PFSH Medical History COPD (chronic obstructive pulmonary disease) Head and neck cancer ILD (interstitial lung disease) Pneumonitis Pulmonary nodule Lower extremity edema Dyspnea Chronic bronchitis Cough Chronic restrictive lung disease COVID-19 Pulmonary fibrosis Surgical History History of bilateral carpal tunnel release Hx of umbilical hernia repair Social History Household Members: Spouse Household Members Other:: Kristen - Patient Tobacco Use Status: Never used Tobacco Second Hand Smoke Exposure: No Current occupational status: retired Current occupation: Right hand dominant Physical Exam Vital Signs: BMI result Body Mass Index 37.1 Const Other: Well-nourished well-developed very friendly male awake alert and oriented x3 in no acute distress Extrem Other: Bilateral upper extremity examination shows good capillary refill, no skin lesions noted, normal sensation light touch Right shoulder examination shows slightly decreased range of motion when compared to his left shoulder, 4+ out of 5 strength with supraspinatus testing, positive impingement signs, tenderness over his acromioclavicular joint, no instability Results Reviewed Results Reviewed: MRI of the patient's right shoulder show severe acromioclavicular joint narrowing, an acromioclavicular joint cyst, a type 2 acromion, signal change within the supraspinatus tendon most likely due to rotator cuff tendinosis, no full-thickness rotator cuff tear noted Assessment & Plan Assessment & Plan (1) Right shoulder pain: Code(s): M25.511 - Pain in right shoulder Category: Medical Plan Mr. Uriostegui presents with right shoulder pain due to acromioclavicular joint arthritis and impingement syndrome. I had a lengthy discussion with the patient regarding the treatment options. Wishes to hold off on surgery if possible. I agree with this plan. He will follow up with his chiropractor. He will follow up with me on an as-needed basis should his symptoms worsen in any way. Feel free to call me at any time should questions regarding his orthopedic management arise. I spent 21 minutes in reviewing the patient's records and imaging studies, seeing the patient and documenting in the medical record. Coding Level of Care Code Est Pt Level 3 (86629) Diagnoses Right shoulder pain M25.511
[2023-12-17 10:40] VITALS: BMI 37.1
== END 2023-12-17 10:52 | disposition home or self-care (01) ==
PROVIDERS: PCP Physician Assistant Medical; Visit Provider Orthopaedic Surgery
DX: M25.511 Pain in right shoulder (principal)
CPT/HCPCS: 99213

== ENCOUNTER → 2023-12-17 10:34 | Outpatient (BNVA) | payer MEDICARE, SELFPAY | PROVIDERS: PCP Physician Assistant Medical; Visit Provider Orthopaedic Surgery | DX: M19.011 Primary osteoarthritis, right shoulder (principal); M75.41 Impingement syndrome of right shoulder | CPT/HCPCS: 99212 ==

== ENCOUNTER 2024-04-14 09:22 | Outpatient (REF) | payer MEDICARE, SELFPAY ==
--- NOTE | ~2024-04-14 | CT_ITS ---
EXAMINATION: CT CHEST WITHOUT CONTRAST CLINICAL INFORMATION: Solitary pulmonary nodule. COMPARISON: 07/05/2022, 03/19/2022. TECHNIQUE: Multidetector volumetric CT imaging of the chest was done. Axial MIP volume rendering provided. Sagittal and coronal reformatted images were obtained. This CT examination was performed using dose optimization techniques as appropriate, variously including the following: *Automated exposure control *Adjustment of mA and/or kV according to patient size (this includes techniques or standardized protocols for targeted exams where dose is matched to indication/reason for exam; i.e. extremities or head) *Use of iterative reconstruction technique DLP: 239 mGy-cm FINDINGS: PULMONARY NODULES: -A few scattered 2 to 3 mm calcified and noncalcified pulmonary nodules are stable without change. -No interval change in the mid anteroinferior left lower lobe nodular appearing scarring abutting the left hemidiaphragm. -No interval change in the 7 mm oval nodule in the medial right lower lobe (series 5, image 471). -No interval change in the 3 mm round nodule in the lateral left upper lobe (series 5, image 237). -No new or enlarging nodules. LUNGS: -Mild centrilobular emphysema. -No consolidations or abnormal opacities. -Stable mosaic appearance of attenuation to the parenchyma, nonspecific but most likely related to air trapping. -No evidence of interstitial lung disease. -Central airways appear normal. Peripheral airways appear normal. MEDIASTINUM: -Normal thyroid. -No abnormal lymphadenopathy in the mediastinum or hilum. -There are mildly calcified but normal in caliber. -Minimally prominent main pulmonary arteries, nonspecific. -Heart measures top normal in size. There is a small amount of pericardial fluid, unchanged. -Esophagus appears normal. GE junction appears normal. CORONARY ARTERY CALCIFICATION: Mild to moderate three-vessel calcification. AXILLA/CHEST WALL: No masses or lymphadenopathy. UPPER ABDOMEN: -Partially imaged superior left renal cyst. -There are a few colonic diverticula noted. OSSEOUS STRUCTURES: -No suspicious lytic or blastic bone lesions. -Mild degenerative spinal changes. CT/CT chest wo IV con IMPRESSION: 1. Stable benign pulmonary nodules without new or enlarging suspicious nodule. 2. Mild centrilobular emphysema. Stable mosaic attenuation of the lung parenchyma, most likely on the basis of underlying air trapping. Differential includes constrictive (obliterative) bronchiolitis, hypersensitivity pneumonitis, as well as less commonly bronchial asthma, vasculitis, and chronic PE. 3. No active lung disease present. 4. Ancillary findings as detailed. Fleischner guidelines were followed. Electronically signed by: Olivier Phoenix MD 06/10/2024 04:36 PM [facility]
== END 2024-04-14 09:23 | disposition home or self-care (01) ==
LOC: HO.CT 09:22
PROVIDERS: PCP Physician Assistant Medical; Visit Provider Hospitalist
DX: R91.1 Solitary pulmonary nodule (principal)
CPT/HCPCS: 71250

== ENCOUNTER → 2024-04-14 09:24 | Outpatient (BNV) | payer MEDICARE, SELFPAY | PROVIDERS: PCP Physician Assistant Medical; Visit Provider Radiology Diagnostic Radiology | DX: R91.1 Solitary pulmonary nodule (principal) | CPT/HCPCS: 71250 ==

== ENCOUNTER 2024-06-09 14:28 | Outpatient (AMB) | payer MEDICARE, SELFPAY ==
[2024-06-09 14:29] VITALS: BP 142/62; PULSE 96; O2SAT 96
--- NOTE | 2024-06-09 14:29 | A.OFFVIS_ITS ---
Vital Signs 06/09/24 14:29 Weight 232 lb 9.403 oz BP 142/62 H Blood Pressure Location Rt brachial Position Sitting Pulse 96 Pulse Source Pulse Oximeter Pulse Oximetry (%) 96 Oxygen Delivery Method Room Air Intake Visit Reasons: Chronic Brochitis Allergies lisinopril Allergy (Unknown, Verified 06/09/24 14:34) Unknown Medication List - Last Reconciled 06/09/24 by Rayne Downing LPN alfuzosin ER 10 mg PO DAILY aspirin 81 mg PO DAILY atorvastatin 10 mg PO DAILY budesonide 0.5 mg (2 mL) inhalation DAILY 30 days citalopram 20 mg PO DAILY finasteride 5 mg PO DAILY gabapentin 200 mg PO BID levalbuterol HCl 1.25 mg (3 mL) inhalation BID losartan 25 mg PO DAILY Oxygen Home Use As directed prednisone PO daily; Take 2 tabs daily x 5 days, then 1 tablet daily x 5 days 10 days ProAir HFA 90 mcg/actuation (albuterol sulfate) 2 puffs inhalation Q4H PRN NS HPI Comments Details: The patient is a 68-year-old gentleman who apparently was in her usual state health until back in May when he started developing respiratory complaints. He was diagnosed with COVID-19. He developed severe respiratory failure required ICU level of care. The patient did have bilateral COVID pneumonia. He was subsequently intubated and was kept in the ICU. Ultimately able to get liberated from the ventilator and placed on oxygen then the patient was sent to rehab where he was able to wean off oxygen. Patient overall is doing a lot better. He still working on his strength. He still has dyspnea on exertion moderate severity specially will going up a hill or flight of stairs. He had been working with physical therapy both for his weakness and also because of a sciatica pain. We did review his imaging studies from [facility] demonstrating bilateral airspace disease and likely some degree of scarring building up at the bases. On examination he also has some crackles at the bases suggesting that he does have some the pulmonary fibrosis. The patient did have a walking oximetry in the office he was able to maintain his pulse ox above 90%. The patient does not qualify for oxygen with activity. I will be testing him overnight to assess his oxygen requirements at nighttime while sleeping. The patient will undergo pulmonary function studies and will be appropriate candidate for pulmonary rehab to continue to treat him for his COVID-19. 05/04/2022 the patient is here for a pulmonary follow-up visit. Patient continues to have some dyspnea on exertion. Vlty-ri-bdxgeyjx severity. Not any better after using the Trelegy inhaler. Denies any significant chest pains or wheezing. Does have intermittent coughing. He did have a repeat CT scan in March 2022 that were personally reviewed in the office. He appears to have areas of ground-glass opacities bilaterally without any significant fibrosis. In addition to this he does have a new 6 x 8 mm pulmonary nodule. Therefore based on the fact that he has significant symptoms along with the significant findings on the CT scan will go ahead and place him on some prednisone to see if we can relieve some of the information the patient is going to hold off on the Trelegy. Will plan to repeat the CT scan in 3 months follow-up with the pulmonary nodule finding. 07/31/2022 the patient is here for a pulmonary follow-up visit. He still complains of dyspnea on exertion. He has not been very active lately. He has not been exercising or rehabilitating. He did complete the prednisone. We did review his previous CT scan demonstrating the ground-glass opacities and pulmonary nodules. His most recent CT scan demonstrated interval improvement of the ground-glass opacities although now he does have reticular changes consistent with the evolution of the pneumonitis now evolving into some scarring. Will have to see if this scarring continues to progress. If it does will consider antifibrotic agents. The pulmonary nodules appear to be stable which is reassuring. The patient also needs to go back to pulmonary rehabilitation as well. Will plan to follow-up with PFTs in the next 3-4 months. If we see any progression of his restrictive lung disease then will consider antifibrotic agents. 12/24/2022 the patient is here for a pulmonary follow-up visit. Since we last spoke he was diagnosed with head and neck cancer and just completed radiation therapy. He has significant dysphagia. He had to go to the ER because of significant dehydration. He was found to have significant hypokalemia and was given multiple infusions of IV potassium. He still has a hard time with swallow. He did follow-up with ENT today. He was started on antibiotics for what appears to be an abscess in his posterior pharynx or larynx. The patient also was given lighted cane rinses. We did talk about other alternatives including chlorhexidine mouthwash and prednisone. The patient is not better this should be contemplated with his ENT doctor. In meantime the patient has not had blood work since the will go ahead and give him additional blood work that he can do specially after starting antibiotics if he is not taking anything by mouth. He does have a follow-up with his primary care doctor next week as well. From a respiratory status the patient has not been using any of his nebulized treatments at this time. Clinically from a respiratory status he is doing okay. 04/29/2023 the patient is here for pulmonary follow-up visit. Overall the patient has been doing well. Completed radiation and is dysphagia is improved. He still has some taste changes. Although he has been able to to take in by mouth. The electrolyte issues have improved. The patient did have a PET scan demonstrating no evidence of any active cancer. Although it did show diverticulitis. He did develop abdominal pain went to [place] where he was again confirmed to have diverticulitis and treated with antibiotics. He did go again for a 2nd time with diverticulitis and now is on antibiotics. Does he was discharged over the weekend. He feels better overall. The patient was not offer surgery. He has continue the antibiotics and monitoring his oral intake. His respiratory status is stable. I will review the imaging studies to assess his interstitial lung disease. He does have the oxygen at nighttime that uses. I did encourage him to use it every night. Will do an overnight oximetry on room air in 3 months to see if he still needs it. He does have a history sleep apnea though so at some point if she still having symptoms he should get a potential sleep study to assess him for obstructive sleep apnea and need for CPAP therapy. 10/21/2023 the patient is here for pulmonary follow-up visit. Last several weeks the patient became sick with respiratory illness. He was seen by primary care doctor. Initially placed on antibiotics with only some improvement. Then he was started on some prednisone and his cough significantly improved. Now is completing a course of doxycycline. His all completed the prednisone. We did review his last CT scan back in July 2022 demonstrating pulmonary nodules and interstitial lung disease. The patient will require repeat CT scan this time. In meantime he has been using oxygen at nighttime at 2 L. the oxygen therapy has been affecting beneficial. We did also do an overnight oximetry the patient still qualify for oxygen. Therefore she continue the oxygen at this time. He does have an elevated [place] score with daytime drowsiness 04/23. The patient will benefit from an in-lab sleep study. However the patient is reluctant at this time since he has had difficulty with CPAP in the past. He will consider it at this time. 10/31/2023 the patient is here for sick visit. He has been having hard time with his breathing. He was evaluated back late September and at that point was having worsening respiratory symptoms he was prescribed doxycycline and also prednisone. However, the patient is no better. Now he is more congested. Moderate severity. The phlegm is greenish in color. In the office with significant wheezing we did provide him with 2 DuoNeb treatments in the he did improve. Therefore we held the Solu-Medrol. Still he is going to require additional prednisone and also will require nebulizer treatments 3 to 4 times a day. Will go ahead and place him Augmentin to treat him further for a lower respiratory bacterial infection. This is likely a postviral bacterial infection since he was sick several weeks ago. 06/09/2024 the patient is here for pulmonary follow-up visit. Overall he is doing well. He is back to his baseline. His of nebulized therapy. The patient does have some dyspnea on exertion. Likely multifactorial. He has gained some weight. He did undergo a CT scan of the chest sometime in 04/19/2024 which I personally reviewed and compared to his previous CT scan. Unfortunately has not been officially read. I do not see any worsening disease if anything the left lower lobe nodular density seems to be little bit less pronounced. In addition to that the patient does have some hazy interstitial disease likely some degree of pulmonary fibrosis and some air trapping. He does use her rescue inhaler. I do believe that a combination inhaler like Wixela will help open up the airways and improve his gas exchange. His PFTs back demonstrated a significant restrictive lung disease due to likely his interstitial lung disease. At this point seems to be doing a little better so therefore will plan to have him follow-up in 8 months with PFTs. For now he is going to work on weight management and exercise. [facility] Medical History COPD (chronic obstructive pulmonary disease) Head and neck cancer ILD (interstitial lung disease) Pneumonitis Pulmonary nodule Lower extremity edema Dyspnea Chronic bronchitis Cough Chronic restrictive lung disease COVID-19 Pulmonary fibrosis Surgical History History of bilateral carpal tunnel release Hx of umbilical hernia repair Social History Household Members: Spouse Household Members Other:: Kristen - Patient Tobacco Use Status: Never used Tobacco Second Hand Smoke Exposure: No Current occupational status: retired Current occupation: Right hand dominant Review of Systems Const Reports daytime sleepiness, Reports fatigue and Reports weight loss Eyes Denies change in vision ENT Denies dysphagia, Denies mouth lesions, Denies odynophagia and Denies sore throat Card Denies chest pain and Reports dyspnea on exertion Resp Reports change in phlegm color, Reports chest congestion, Reports cough, Denies hemoptysis, Reports excessive phlegm production, Reports dyspnea on exertion and Reports wheezing GI Reports as per HPI, Reports abdominal pain, Denies dysphagia and Denies odynophagia Musc Reports no additional complaints Skin/Breast Denies rash Endo Reports fatigue Aller/Immun Reports wheezing Physical Exam Vital Signs: Last Vital Signs Pulse 96 06/09/24 14:29 BP 142/62 H 06/09/24 14:29 Pulse Ox 96 06/09/24 14:29 Oxygen Delivery Method Room Air 06/09/24 14:29 Const General: alert Neck Neck: Yes normal visual inspection, Yes full ROM and Yes no lymphadenopathy Chest Chest palpation & inspection: normal inspection of the chest Resp Effort & Inspection: normal respiratory effort and prolonged expiratory phase Auscultation: no rhonchi, no wheezes and diminished lung sounds Cardio Rate: regular rate Rhythm: regular rhythm Heart sounds: S1 normal heart sound present and S2 normal heart sound present GI Palpation (GI): Soft to palpation and nontender Auscultation: normal bowel sounds Skin General skin exam: rashes and/or lesions noted Extrem General: Yes edema Assessment & Plan Assessment & Plan (1) COPD (chronic obstructive pulmonary disease): Code(s): J44.9 - Chronic obstructive pulmonary disease, unspecified Category: Medical Qualifiers: COPD type: COPD with acute lower respiratory infection Qualified Code(s): J44.0 - Chronic obstructive pulmonary disease with (acute) lower respiratory infection (2) Chronic restrictive lung disease: Comment: Moderate in severity Code(s): J98.4 - Other disorders of lung Category: Medical (3) Chronic bronchitis: Code(s): J42 - Unspecified chronic bronchitis Category: Medical Qualifiers: Chronic bronchitis type: mixed simple and mucopurulent Qualified Code(s): J41.8 - Mixed simple and mucopurulent chronic bronchitis (4) Pulmonary nodule: Comment: new 6x8 mm nodule Code(s): R91.1 - Solitary pulmonary nodule Category: Medical (5) ILD (interstitial lung disease): Code(s): J84.9 - Interstitial pulmonary disease, unspecified Category: Medical (6) Pulmonary fibrosis: Code(s): J84.10 - Pulmonary fibrosis, unspecified Category: Medical (7) Head and neck cancer: Comment: PET negative Code(s): C76.0 - Malignant neoplasm of head, face and neck Category: Medical Plan Continue oxygen 2 L at nighttime consider an in lab PSG start Wixela YOLANDA as needed Arexvy Fall 2023 F/U 6-8 months Medications: New fluticasone propion-salmeterol 250-50 mcg/dose (Wixela Inhub) 1 inh inhalation Q12H 60 ea 11RF 30 days Coding Level of Care Code Est Pt Level 4 (42761) Complex EM visit Add On G2211 Diagnoses Chronic obstructive pulmonary disease with acute lower respiratory infection J44.0 COPD type: COPD with acute lower respiratory infection Chronic restrictive lung disease J98.4 Mixed simple and mucopurulent chronic bronchitis J41.8 Chronic bronchitis type: mixed simple and mucopurulent Pulmonary nodule R91.1 ILD (interstitial lung disease) J84.9 Pulmonary fibrosis J84.10 Head and neck cancer C76.0 Time Spent (min) 17
--- OUTSIDE RECORDS SUMMARY | 2024-06-10 22:07 | XMS_ITS | Continuity of Care Document ---
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 Ons et: 10/02/2022 Hyperlipidemia Kris Stoner M.D. Onset: 09/2022 Polyp of colon Kris Stoner M.D. Onset: 09/2022 Morbid obesity Kris Stoner M.D. Onset: 09/2022 Obstructive sleep apnea syndrome Kris Stoner M.D. Onset: 10/02/2022 Diabetes mellitus Kris Stoner M.D. Onset: 0 10/02/2022 H/O: depression Kris Stoner M.D. Onset: 09/2022 Testosterone level below reference range Kris tee M.D. Onset: 10/01/2023 Tongue carcinoma Kris Stoner M.D. Onset: Hypogonadism Kris Stoner M.D. Onset: 09/2022 Hypercholesterolemia Kris Stoner M.D. Onset : 10/02/2022 Social History Type Date Description Comments Sex Unknown Tobacco Use Start: Unknown Never Smoked Cigarettes Smoking Status Reviewed: 10/24/22 Never Smoked Cigaret leonard Allergies and adverse reactions Active Allergies Criticality Reaction Severity Comments Date Lisinopril Unable to assess criticality 10/02/2022 Medications Active Medications SIG Qnty Indications Ordering Provider Date Hzyhcg74ef Tablets one tab by mouth as needed 5tabs Kris Stoner M.D. 02/27/2023 Atorvastatin Tzwkppb02ss Tablets Take 1 Tablet By Mouth Everyday AT Bedtime Laurie Guzman P.AGil Alfuzosin HCL ER10mg Tablets ER 24HR Take 1 Tablet By Mouth Every Day Unknown Citalopram Xgrxxfougbcf88qj Tablets Take 2 Tablet By Mouth Every Day Laurie Guzman P.Jesus Albuterol Sulfate JZH826(90Base) mcg/Act Aerosol Inhale 2 puff Every 4 Hours as Needed For Shortness Of Breath Or Wheezing Noe Huffman [id number] Capsules one prn Unknown Febwarlodll4ia Tablets 1 by mouth every day Unknown Losartan Kwjccgzbp67qg Tablets Take 1 Tablet By Mouth Every Day Unknown Aspirin 8181mg Tablets DR 1 by mouth every day Unknown Vital Signs Date Vital Result Comment 10/01/2023 11:07am BP Systolic 138 mmHg BP Diastolic 80 mmHg Heart Rate 88 /min Height 66 inches 5'6 Weight 218.50 lb BMI (Body Mass Index) 35.3 kg/m2 Results Test Acquired Date Facility Test Result H/L Range Note Laboratory test finding 10/01/2023 Inhouse Glucose Fingerstick 132 Laboratory test finding 06/25/2023 Inhouse Hemoglobin A1c 6.1% Laboratory test finding 06/25/2023 Inhouse Glucose Fingerstick 139 Free Testosterone 05/30/2023 [facility] Testosterone, Total, LC/MS 395.3 1 Percent Free Testosterone 4.79 High 2 Free Testosterone, Equilibrium 18.93 3 Laboratory test finding 02/27/2023 Inhouse Glucose Fingerstick 137 Laboratory test finding 12/27/2022 [facility] Testosterone 242 ng/dL Low (280-800 ) Laboratory test finding 10/02/2022 [facility] TSH With Reflex To FT4 1.86 uIU/mL (0.4-4.2 ) Bioavailable Testosterone 10/02/2022 [facility] Testosterone, Total, LC/MS 178.9 Low 4 Testosterone,Fr e e Weakly Bound 74.4 5 Testosterone,Fr e e Weakly % 41.6 6 Prolactin With Reflex To Monomeric 10/02/2022 [facility] Prolactin 13.3 NG/ML (4.0-15. 2) Prolactin, Monomeric 12.9 ng/dL Prolactin, Percent Monomeric 97 % 7 Laboratory test finding 10/02/2022 [facility] LH 5.2 MIU/ML (1.5-12. 4) 8 FSH 4.3 MIU/ML (1.5-12. 4) 9 Free Testosterone Female And Juvenile 10/02/2022 [facility] Testosterone, Serum Total Pending SHBG Pending nmol/L (19-76) Free Testosterone, Estimated Pending ng/dL (3.7-14. 7) 29460-3 Test Cancelled, <SEE NOTE> 10 Testosterone,Oscar e & Total (Males > 15Yr) 10/02/2022 [facility] Testosterone 215 ng/dL Low (280-800 ) SHBG 14.3 nmol/L Low (19-76) Free Testosterone, Estimated 5.78 ng/dL (3.7-14. 7) Laboratory test finding 10/02/2022 Inhouse Glucose Fingerstick 199 1 Reference range: 264 .0 to 916.0 Unit: ng/dL (NOTE) This [facility] LC/MS-MS method is currently certified by the CDC Hormone Standardization Program (HoSt). Adult male reference interval is based on a population of healthy nonobese males (BMI <30) between 19 and 39 years old. Petty, et.al. JCEM 2017,102;9476-4131. PMID: 11697701. This test was developed and its performance characteristics determined by [facility]. It has not been cleared or approved by the Food and Drug Administration. 2 Reference range: 1.5 0 to 4.20 Unit: % 3 Reference range: 5.0 0 to 21.00 Unit: ng/dL Test performed at [address] [address] 4 Reference range: 264 .0 to 916.0 Unit: ng/dL (NOTE) This [facility] LC/MS-MS method is currently certified by the CDC Hormone Standardization Program (HoSt). Adult male reference interval is based on a population of healthy nonobese males (BMI <30) between 19 and 39 years old. Petty, et.al. EM 2017,102;1584-1826. PMID: 71831402. This test was developed and its performance characteristics determined by [facility]. It has not been cleared or approved by the Food and Drug Administration. 5 Reference range: 40. 0 to 250.0 Unit: ng/dL 6 Reference range: 9.0 to 46.0 Unit: % (NOTE) This test was developed and its performance characteristics determined by [facility]. It has not been cleared or approved by the Food and Drug Administration. Test performed at [address] [address] 7 SAMPLE CONTAINS MOST LY MONOMERIC PROLACTIN 8 Reference Range: Follicular: 2.4-12.6 mIU/mL Ovulation: 14.0-95.6 mIU/mL Luteal: 1.0-11.4 mIU/mL Postmenopausal: 7.7-58.5 mIU/mL 9 Reference Range: Follicular: 3.5-12.5 mIU/mL Ovulation: 4.7-21.5 mIU/mL Luteal: 1.7-7.7 mIU/mL Postmenopausal: 25.8-134.8 mIU/mL 10 Test Cancelled, orde r entry error Medical Devices Description No Information Available Encounters Type Date Location Provider Dx Diagnosis Office Visit 10/01/2023 11:00a Main Office Kirs Stoner M.D. E11.9 Type 2 diabetes mellitus without complications C02.9 Malignant neoplasm o f tongue, unspecified I10 Essential (primary) hypertension E78.00 Pure hypercholestero lemia, unspecified G47.33 Obstructive sleep ap sonny (adult) (pediatric) R89.1 Abnormal level of ho rmones in specimens from oth org/tiss Assessments Date Code Description Provider 10/01/2023 E11.9 Type 2 diabetes mellitus without complications Kris Stoner M.D. 10/01/2023 C02.9 Tongue carcinoma Kris tanner M.D. 10/01/2023 I10 Essential hypertension Kris Stoner M.D. 10/01/2023 E78.00 Hypercholesterolemia Kris tee M.D. 10/01/2023 G47.33 Sleep apnea Kris Stoner M.D. 10/01/2023 R89.1 Testosterone level below ref erence range Kris Stoner M.D. Plan of Treatment No Information Available Functional Status Description No Information Available Mental Status Description No Information Available Referrals Description No Information Available
--- OUTSIDE RECORDS SUMMARY | 2024-06-10 22:07 | XMS_ITS ---
Author Name [facility] Organization Unknown History of Medication Use Medication Directions Dispensed Refills Start Date End Date Status budesonide 0.5 mg/2 mL suspension for nebulization INHALE 2 ML VIA NEBULIZER DAILY FOR 30DAYS 11/22/19 23 completed Cyanocobalamin (VITAMIN B-12 PO) Take 1,000 mcg by mouth. 08/02/19 24 active oxybutynin (DITROPAN-XL) 10 MG 24 hr tablet Take 1 tablet (10 mg total) by mouth daily. 05/24/20 23 active hydrochlorothiazide 12.5 mg tablet TAKE 1 TABLET BY MOUTH EVERY DAY 11/22/19 23 active citalopram 20 mg tablet TAKE 1 TABLET BY MOUTH EVERY DAY 01/25/20 23 completed alfuzosin ER 10 mg tablet,extended release 24 hr TAKE 1 TABLET BY MOUTH EVERY DAY 11/22/19 23 active atenolol 50 mg tablet TAKE 1 TABLET BY MOUTH EVERY DAY 11/22/19 23 completed prochlorperazine maleate 10 mg tablet TAKE 1 TABLET BY MOUTH 3 TIMES A DAY NEEDED 11/22/19 23 completed losartan (COZAAR) 25 MG tablet Take 1 tablet (25 mg total) by mouth daily. 08/02/19 active atorvastatin 10 mg tablet TAKE 1 TABLET BY MOUTH EVERYDAY AT BEDTIME 11/22/19 23 active finasteride 5 mg tablet TAKE 1 TABLET BY MOUTH EVERY DAY 01/25/20 23 completed metformin ER 1,000 mg tablet,extended release 24hr TAKE 1 TABLET BY MOUTH EVERY DAY (1,000 MG) IN THE EVENING WITH DINNER 11/22/19 23 active aspirin 81 mg capsule,delayed release Take by oral route. 11/22/19 23 completed finasteride (PROSCAR) 5 MG tablet 05/24/20 23 active lidocaine (XYLOCAINE) 2 % SOLN solution Use as directed 5 mL in the mouth or throat as needed for pain. 05/24/20 23 active lactobacillus (CULTURELLE) Cap capsule Take by mouth daily. 08/02/19 24 active guaiFENesin-codeine (guaiFENesin AC) 100-10 MG/5ML liquid 05/24/20 active metFORMIN (FORTAMET) ER 24 hr tablet 1000 mg Take 1 tablet (1,000 mg total) by mouth every morning with breakfast. 05/24/20 active atorvastatin 10 mg tablet TAKE 1 TABLET BY MOUTH EVERYDAY AT BEDTIME 11/22/19 active amoxicillin 400 mg-potassium clavulanate 57 mg/5 mL oral suspension TAKE 10 ML BY MOUTH EVERY TWELVE HOURS 01/25/20 completed oxycodone 5 mg tablet TAKE 1 TABLET BY MOUTH EVERY 6 HOURS NEEDED FOR PAIN 11/22/19 completed benzonatate 200 mg capsule TAKE 1 CAPSULE BY MOUTH TWICE A DAY NEEDED FOR COUGH 11/22/19 completed oxybutynin chloride ER 10 mg tablet,extended release 24 hr TAKE 1 TABLET BY MOUTH EVERY DAY 11/22/19 completed citalopram 10 mg tablet TAKE 1 TABLET BY MOUTH EVERY DAY 11/22/19 active alfuzosin (UROXATRAL) 10 MG 24 hr tablet Take 1 tablet (10 mg total) by mouth daily. 08/02/19 active benzonatate 11/22/19 completed Sodium Fluoride (Sodium Fluoride 5000 PPM) 1.1 % PSTE Place 1 application. onto teeth every night at bedtime. 05/24/20 active azithromycin 250 mg tablet TAKE 1 TABLET (250 MG TOTAL) BY MOUTH DAILY. TAKE 2 TABLETS ON DAY ONE AND THEN 1 TABLET PER DAY. 11/22/19 completed gabapentin 100 mg capsule PLEASE SEE ATTACHED FOR DETAILED DIRECTIONS 11/22/19 completed losartan (COZAAR) tablet 50 mg Take 0.5 tablets (25 mg total) by mouth daily. 05/24/20 active codeine 10 mg-guaifenesin 100 mg/5 mL oral liquid TAKE 10MLS BY MOUTH EVERY 6 HOURS FOR 10 DAYS NEEDED FOR COUGH 11/22/19 completed benzonatate (TESSALON) 200 MG capsule TAKE 1 CAPSULE BY MOUTH TWICE A DAY NEEDED FOR COUGH 05/24/20 active hydroCHLOROthiazide (HYDRODIURIL) tablet 12.5 mg Take 1 tablet (12.5 mg total) by mouth daily. 05/24/20 active oxyCODONE (ROXICODONE) 5 MG immediate release tablet Take 1 tablet (5 mg total) by mouth every 4 (four) hours as needed for pain. 05/24/20 active azithromycin (Zithromax Z-Catarino) 250 MG tablet Take 1 tablet (250 mg total) by mouth daily. Take 2 tablets on day one and then 1 tablet per day. 05/24/20 active Albuterol Sulfate 108 (90 Base) MCG/ACT AEPB Inhale into the lungs. 05/24/20 active Medication Administration not documented Medication Administration not documented 10/26/19 completed alfuzosin (UROXATRAL) 10 MG 24 hr tablet Take 1 tablet (10 mg total) by mouth daily. 05/24/20 active clotrimazole 10 mg linda DISSOLVE 1 TABLET SLOWLY IN THE MOUTH 5 TIMES DAILY FOR 14 DAYS 01/25/20 completed gabapentin (NEURONTIN) 100 MG capsule 05/24/20 active Tussin Cough (DM only) 15 mg capsule TAKE 2 CAPSULES EVERY 6 HOURS NEEDED FOR COUGH FOR 14 DAYS 11/22/19 completed atorvastatin (LIPITOR) tablet 10 mg Take 1 tablet (10 mg total) by mouth every evening. 05/24/20 active Amoxicillin-Pot Clavulanate 400-57 MG/5ML Oral Suspension Reconstituted Amoxicillin-Pot Clavulanate 400-57 MG/5ML Oral Suspension ReconstitutedTAKE 10 ML Every twelve hours Quantity: 2 Refills: Soham Farrell M.D. Start : 24-Dec-2022 End : [id number] ML Bottle 12/27/19 completed furosemide 20 mg tablet TAKE 1 TAB BY MOUTH DAILY 11/22/19 completed atorvastatin (LIPITOR) 10 MG tablet 1 tablet (10 mg total). 08/02/19 active Trelegy Ellipta 100 mcg-62.5 mcg-25 mcg powder for inhalation INHALE ONCE DAILY FOR 30 DAYS 11/22/19 completed losartan 25 mg tablet TAKE 1 TABLET BY MOUTH EVERY DAY 01/25/20 active oxybutynin 11/22/19 completed aspirin EC 81 MG tablet Take 1 tablet (81 mg total) by mouth daily. 05/24/20 active Lidocaine Viscous 2 % mucosal solution USE DIRECTED 5 ML IN THE MOUTH OR THROAT NEEDED FOR PAIN. 12/07/19 completed prednisone 10 mg tablet TAKE 2 TABS DAILY X 14 DAYS, THEN 1 TAB DAILY X 42 DAYS 05/24/20 23 completed Klor-Con M20 mEq tablet,extended release TAKE 1 TABLET BY MOUTH EVERY DAY WITH FOOD 01/25/20 active folic acid (FOLVITE) 1 MG tablet Take 1 tablet (1 mg total) by mouth daily. 08/02/19 active aspirin enteric coated (ECOTRIN LOW STRENGTH) 81 MG EC tablet Take 1 tablet (81 mg total) by mouth daily. 08/02/19 active citalopram (CeleXA) 20 MG tablet 1 tablet (20 mg total). 08/02/19 active finasteride (PROSCAR) 5 MG tablet Take 1 tablet (5 mg total) by mouth daily. 08/02/19 active atenolol (TENORMIN) tablet 50 mg Take 1 tablet (50 mg total) by mouth daily. 05/24/20 active pantoprazole 40 mg tablet,delayed release TAKE 40 MG BY MOUTH 2 TIMES A DAY FOR 11 DAYS 01/25/20 23 completed nystatin 100,000 unit/mL oral suspension TAKE 5 ML SWISH AND SPIT 4 TIMES A DAY FOR 7 DAYS 01/25/20 23 completed levalbuterol 1.25 mg/3 mL solution for nebulization INHALE 1 VIAL VIA NEBULIZER 2 TIMES A DAY 11/22/19 completed diclofenac 1 % topical gel APPLY 2 GRAMS TOPICALY 4 TIMES PER DAY FOR 10 DAYS 11/22/19 23 completed citalopram (CeleXA) 10 MG tablet Take 2 tablets (20 mg total) by mouth daily. 05/24/20 active albuterol sulfate HFA 90 mcg/actuation aerosol inhaler INHALE 2 PUFF EVERY 4 HOURS NEEDED FOR SHORTNESS OF BREATH OR WHEEZING 11/22/19 completed losartan 50 mg tablet TAKE 1 TABLET BY MOUTH EVERY DAY 11/22/19 23 completed cyclobenzaprine 10 mg tablet PLEASE SEE ATTACHED FOR DETAILED DIRECTIONS 11/22/19 completed Allergies Allergen Reaction Severity Comment Documented Date Source Statu s LISINOPRIL TABS [facility] Problems Problem Status Onset Date Problem Type Date of Resoluti on Source Pulmonary nodule active 2023-07-23 [facility]Act [facility] Hypertension active 2023-07-23 ProblemAct [facility] Malignant tumor of base of tongue active 2022-10-04 ProblemAct [facility] Type 2 diabetes mellitus active 2023-07-23 ProblemAct [facility] BPH (benign prostatic hyperplasia) active 2023-07-23 ProblemAct [facility] Colon polyps active 2023-07-23 ProblemAct [facility] Renal mass active 2023-07-23 ProblemAct [facility] Mixed simple and mucopurulent chronic bronchitis active 2023-07-23 ProblemAct [facility] Hyperlipidemia active 2023-07-23 ProblemAct [facility] Morbid obesity active 2023-07-23 ProblemAct [facility] History of tongue cancer active 2023-07-23 ProblemAct [facility] Major depressive disorder in partial remission active 2023-07-23 ProblemAct [facility] Hypogonadism in male active 2023-07-23 ProblemAct [facility] AHMET (obstructive sleep apnea) active 2023-07-23 [facility]Act [facility] Elevated PSA active 2023-07-23 ProblemAct [facility] History of COVID-19 active 2023-07-23 ProblemAct [facility] Pain in lumbar spine active 2022-11-20 ProblemAct [facility] Strain of hamstring tendon active 2022-11-20 ProblemAct [facility] Pulmonary fibrosis active 2023-07-23 ProblemAct [facility] Diverticulitis active 2023-07-26 ProblemAct [facility] Stenosis of esophagus active 2023-07-23 ProblemAct [facility] Impingement syndrome of right shoulder region active 2022-09-12 ProblemAct [facility] Closed traumatic dislocation acromioclavicular joint active 2023-01-22 ProblemAct [facility] Closed fracture proximal humerus, greater tuberosity active 2022-11-19 ProblemAct [facility] Immunizations Vaccine Date Source Lot Number Status Pneumococcal Conjugate [id number] completed Influenza, Quadrivalent (FLU AD) Adjuvanted Preservative Free IM 65 years and older 06/20/2023 [facility] [id number] completed Tdap 04/25/2017 [facility] completed
== END 2024-06-09 15:00 | disposition home or self-care (01) ==
PROVIDERS: PCP Physician Assistant Medical; Visit Provider Hospitalist
DX: J41.8 Mixed simple and mucopurulent chronic bronchitis (principal); J98.4 Other disorders of lung; R91.1 Solitary pulmonary nodule; J84.9 Interstitial pulmonary disease, unspecified; J84.10 Pulmonary fibrosis, unspecified; C76.0 Malignant neoplasm of head, face and neck
CPT/HCPCS: 99214; G2211

== ENCOUNTER → 2024-06-09 14:28 | Outpatient (BNVA) | payer MEDICARE, SELFPAY | PROVIDERS: PCP Physician Assistant Medical; Visit Provider Hospitalist | DX: J44.0 Chronic obstructive pulmonary disease with (acute) lower respiratory infection (principal); J98.4 Other disorders of lung; J41.8 Mixed simple and mucopurulent chronic bronchitis; R91.1 Solitary pulmonary nodule; J84.9 Interstitial pulmonary disease, unspecified; J84.10 Pulmonary fibrosis, unspecified; C76.0 Malignant neoplasm of head, face and neck | CPT/HCPCS: 99212 ==

== ENCOUNTER 2024-12-30 06:40 | Outpatient (REF) | payer MEDICARE, SELFPAY ==
--- NOTE | ~2024-12-30 | XR_ITS ---
Exam: Three-view x-ray bilateral knees TECHNIQUE: AP standing, lateral, and sunrise view, lower extremity joint, bilateral knees INDICATION: Bilateral knee pain No prior FINDINGS: Right knee: There is mild narrowing of the medial joint space. There are small to medium sized marginal osteophytes along the medial joint line and patella femoral joint. Small amount joint fluid is visible. There are vascular calcification. Left knee: There is mild to moderate narrowing of the medial joint space and mild narrowing of the lateral joint space. There are tricompartmental marginal osteophytes. Small volume of joint fluid is visible. There is lateral patellar tilt. XR/XR Knee Don 3V IMPRESSION: Moderate right knee osteoarthritis. Moderate left knee osteoarthritis and lateral patellar tilt. Electronically signed by: Gil Michael MD 12/30/2024 02:58 PM EDT
--- OUTSIDE RECORDS SUMMARY | 2024-12-31 06:28 | XMS_ITS | Continuity of Care Document ---
Author Organization [facility] Address [address] [facility] [address] [place] [address] Phone [phone] Care Team Providers Care Employee Development Manager Name Role Phone Laurie Guzman Care Team Information Re ceiver [phone] Problems Active Problems Provider Date Essential hypertension [...] Medications SIG Qnty Indications Ordering Provider Date Oajbzy22xm Tablets one tab by mouth as needed 5tabs Kris Stoner M.D. 02/27/2023 Atorvastatin Lmktttj51sv Tablets Take 1 Tablet By Mouth Everyday AT Bedtime Laurie Guzman PPaola Alfuzosin HCL ER10mg Tablets ER 24HR Take 1 Tablet By Mouth Every Day Unknown Citalopram Rufcbjmqkctg79ci Tablets Take 2 Tablet By Mouth Every Day Laurie Guzman P.A. Albuterol Sulfate RZE966(90Base) mcg/Act Aerosol Inhale 2 puff Every 4 Hours as Needed For Shortness Of Breath Or Wheezing Noe Huffman Qcuehdanov778jt Capsules one prn Unknown Taheyudbmye2rh Tablets 1 by mouth every day Unknown Losartan Dcomizcid66ra Tablets Take 1 Tablet By Mouth Every [...] Inhouse Glucose Fingerstick 139 Free Testosterone 05/30/2023 [facility] Testosterone, Total, LC/MS 395.3 1 Percent Free Testosterone 4.79 High 2 Free Testosterone, Equilibrium 18.93 3 Glucose Fingerstick 02/27/2023 Inhouse Glucose Fingerstick 137 Testosterone 12/27/2022 [facility] Testosterone 242 ng/dL Low (280-800 ) TSH With Reflex To FT4 10/02/2022 [facility] TSH With Reflex To FT4 1.86 uIU/mL (0.4-4.2 ) Bioavailable Testosterone 10/02/2022 [facility] Testosterone, Total, LC/MS 178.9 Low 4 Testosterone,Fr e e Weakly Bound 74.4 5 Testosterone,Fr e e Weakly % 41.6 6 Prolactin With Reflex To Monomeric 10/02/2022 [facility] Prolactin 13.3 NG/ML (4.0-15. 2) Prolactin, Monomeric 12.9 ng/dL Prolactin, Percent Monomeric 97 % 7 LH 10/02/2022 [facility] LH 5.2 MIU/ML (1.5-12. 4) 8 FSH 10/02/2022 [facility] FSH 4.3 MIU/ML (1.5-12. 4) 9 Free Testosterone Female And Juvenile 10/02/2022 [facility] Testosterone, Serum Total Pending SHBG Pending nmol/L (19-76) Free Testosterone, Estimated Pending ng/dL (3.7-14. 7) 40004-8 Test Cancelled, <SEE NOTE> 10 Testosterone,Oscar e & Total (Males > 15Yr) 10/02/2022 [facility] Testosterone 215 ng/dL Low (280-800 ) SHBG 14.3 nmol/L Low (19-76) Free Testosterone, Estimated 5.78 ng/dL (3.7-14. 7) Glucose Fingerstick 10/02/2022 Inhouse Glucose Fingerstick 199 1 Reference range: 264 .0 to 916.0 Unit: ng/dL (NOTE) This [facility] LC/MS-MS method is currently certified by the CDC Hormone Standardization Program (HoSt). Adult male reference interval is based on a population of healthy nonobese males (BMI <30) between 19 and 39 years old. Petty, et.al. EM 2017,102;1740-7556. PMID: 79856456. This test was developed and its performance characteristics determined by [facility]. It has not been cleared or approved by the Food and Drug Administration. 2 Reference range: 1.5 0 to 4.20 Unit: % 3 Reference range: 5.0 0 to 21.00 Unit: ng/dL Test performed at [address] [address] 4 Reference range: 264 .0 to 916.0 Unit: ng/dL (NOTE) This [facility] LC/MS-MS method is currently certified by the CDC Hormone Standardization Program (HoSt). Adult male reference interval is based on a population of healthy nonobese males (BMI <30) between 19 and 39 years old. Petty, et.al. EM 2017,102;0176-7602. PMID: 22150611. This test was developed and its performance characteristics determined by [facility]. It has not been cleared or approved by the Food and Drug Administration. 5 Reference range: 40. 0 to 250.0 Unit: ng/dL 6 Reference range: 9.0 to 46.0 Unit: % (NOTE) This test was developed and its performance characteristics determined by [facility]. It has not been cleared or approved by the Food and Drug Administration. Test performed at [address] [address] 7 SAMPLE CONTAINS MOST LY MONOMERIC PROLACTIN [...]
--- OUTSIDE RECORDS SUMMARY | 2024-12-31 06:28 | XMS_ITS | Encounter Summary ---
Author Organization [facility] Address [address] [place] [address] Care Team Providers Care All Source Analyst Name Role Phone Soham Pearce MD Primary Care Provider [phone] Encounter Details Date Type Department Care Team (Late st Contact Info) Description 09/27/2022 Orders Only [facility] [address] [place], [place] [id number] Soham Pearce MD [address] [facility] [address] [place], [place] [id number] Social History Tobacco Use Types Packs/Day Years [...] 17Sep2022 01:45PM Soham Pearce TESTING PERFORMED AT: [address] [address], PHONE [phone], FAX [phone] Test Name Result Flag Reference CT Neck [...] your patient to us, Po Marie MD [id number] (Electronically Signed - 09/26/2022 12:48) Copy: RYDER SANZ [facility] [address] [facility] [address] [place] [address] documented in this encounter Plan of Treatment Not on file documented as of this encounter Visit Diagnoses Not on filedocumented in this encounter Care Teams All Source Analyst Relationship Specialty Start Date End Date Soham Pearce MD [address] [facility] [address] [place] [address] PCP - General 02/04/23 documented as of this encounter
--- OUTSIDE RECORDS SUMMARY | 2024-12-31 06:28 | XMS_ITS | Clinical Summary ---
Author Organization [facility] Address [address] [place] [address] Care Team Providers Care Painter Decorator Name Role Phone Unavailable Primary Care Provider [...] age to complete this topic Insurance MEDICARE [facility] MEDICARE [facility] MEDICARE [facility]
--- OUTSIDE RECORDS SUMMARY | 2024-12-31 06:28 | XMS_ITS ---
Author Name [facility] Organization Unknown History of Medication Use Medication Directions Dispensed Refills Start Date End Date Stat finasteride (PROSCAR) 5 MG tablet 04/03/2023 active azithromycin (Zithromax Z-Catarino) 250 MG tablet Take 1 tablet (250 mg total) by mouth daily. Take 2 tablets on day one and then 1 tablet per day. 12/19/2022 active hydroCHLOROthiazide (HYDRODIURIL) tablet 12.5 mg Take 1 tablet (12.5 mg total) by mouth daily. 03/02/2022 active alfuzosin (UROXATRAL) 10 MG 24 hr tablet Take 1 tablet (10 mg total) by mouth daily. 01/27/2022 active aspirin 81 mg capsule,delayed release Take by oral route. 02/15/20 23 completed benzonatate 200 mg capsule TAKE 1 CAPSULE BY MOUTH TWICE A DAY NEEDED FOR COUGH 02/15/20 23 active budesonide 0.5 mg/2 mL suspension for nebulization INHALE 2 ML VIA NEBULIZER DAILY FOR 30DAYS 02/15/20 23 active citalopram 20 mg tablet TAKE 1 TABLET BY MOUTH EVERY DAY 02/15/20 23 completed cyclobenzaprine 10 mg tablet PLEASE SEE ATTACHED FOR DETAILED DIRECTIONS 02/15/20 23 active finasteride 5 mg tablet TAKE 1 TABLET BY MOUTH EVERY DAY 02/15/20 23 completed levalbuterol 1.25 mg/3 mL solution for nebulization INHALE 1 VIAL VIA NEBULIZER 2 TIMES A DAY 02/15/20 23 active oxybutynin chloride ER 10 mg tablet,extended release 24 hr TAKE 1 TABLET BY MOUTH EVERY DAY 02/15/20 23 active Trelegy Ellipta 100 mcg-62.5 mcg-25 mcg powder for inhalation INHALE ONCE DAILY FOR 30 DAYS 02/15/20 23 active azithromycin 250 mg tablet TAKE 1 TABLET ON SATURDAY//Saturday01/23/20 23 active citalopram 10 mg tablet TAKE 1 TABLET BY MOUTH EVERY DAY 01/23/20 23 active diclofenac 1 % topical gel APPLY 2 GRAMS TOPICALY 4 TIMES PER DAY FOR 10 DAYS 01/23/20 active nystatin 100,000 unit/mL oral suspension TAKE 5 ML SWISH AND SPIT 4 TIMES A DAY FOR 7 DAYS 01/23/20 completed oxycodone 5 mg tablet TAKE 1 TABLET BY MOUTH EVERY 6 HOURS NEEDED FOR PAIN 01/23/20 active hydrochlorothiazide 12.5 mg tablet TAKE 1 TABLET BY MOUTH EVERY DAY active Klor-Con M20 mEq tablet,extended release TAKE 1 TABLET BY MOUTH EVERY DAY WITH FOOD active losartan 25 mg tablet TAKE 1 TABLET BY MOUTH EVERY DAY active metformin ER 1,000 mg tablet,extended release 24hr TAKE 1 TABLET BY MOUTH EVERY DAY (1,000 MG) IN THE EVENING WITH DINNER active alfuzosin (UROXATRAL) 10 MG 24 hr tablet Take 1 tablet (10 mg total) by mouth daily. active aspirin enteric coated (ECOTRIN LOW STRENGTH) 81 MG EC tablet Take 1 tablet (81 mg total) by mouth daily. active atorvastatin (LIPITOR) tablet 10 mg Take 1 tablet (10 mg total) by mouth every evening. active folic acid (FOLVITE) 1 MG tablet Take 1 tablet (1 mg total) by mouth daily. active guaiFENesin-codeine (guaiFENesin AC) 100-10 MG/5ML liquid active Allergies Allergen Reaction Severity Comment Documented Date Source Statu s LISINOPRIL OTHER (SEE COMMENTS) cough 04/04/2022 [facility] active LISINOPRIL TABS [facility] Problems Problem Status Onset Date Problem Type Date of Resoluti on Source Malignant tumor of base of tongue active 2022-10-04 ProblemAct [facility] Pain in lumbar spine active 2022-11-20 ProblemAct [facility] Type 2 diabetes mellitus active 2023-07-23 [facility]Act [facility] BPH (benign prostatic hyperplasia) active 2023-07-23 [facility]Act [facility] Strain of hamstring tendon active 2022-11-20 ProblemAct [facility] Colon polyps active 2023-07-23 ProblemAct [facility] Pulmonary fibrosis active 2023-07-23 ProblemAct [facility] Renal mass active 2023-07-23 ProblemAct [facility] Stenosis of esophagus active 2023-07-23 ProblemAct [facility] Impingement syndrome of right shoulder region active 2022-09-12 ProblemAct [facility] Closed traumatic dislocation acromioclavicular joint active 2023-01-22 ProblemAct [facility] Closed fracture proximal humerus, greater tuberosity active 2022-11-19 ProblemAct [facility] Diverticulitis active 2023-07-[address] Mixed simple and mucopurulent chronic bronchitis active 2023-07-23 ProblemAct [facility] Pulmonary nodule active 2023-07-23 ProblemAct [facility] Hyperlipidemia active 2023-07-23 ProblemAct [facility] Morbid obesity active 2023-07-[address] History of tongue cancer active 2023-07-23 ProblemAct [facility] Major depressive disorder in partial remission active 2023-07-23 ProblemAct [facility] Hypogonadism in male active 2023-07-23 ProblemAct [facility] AHMET (obstructive sleep apnea) active 2023-07-23 ProblemAct [facility] Elevated PSA active 2023-07-23 ProblemAct [facility] Hypertension active 2023-07-23 ProblemAct [facility] History of COVID-19 active 2023-07-23 ProblemAct [facility] Immunizations Vaccine Date Source Lot Number Status Influenza, Quadrivalent (FLU AD) Adjuvanted Preservative Free IM 65 years and older 06[facility]20[facility]20[id number] completed Pneumococcal Conjugate 20-Valent 06/20/2023 [facility] [id number] completed Tdap 04/25/2017 [facility] completed Encounters Encounter Type Encounter Reason Primary Diagnosis Location Date Ambulatory Essential (primary) hypertension Essential (primary) hypertension [facility] 12/01/2024 Ambulatory Type 2 diabetes mellitus without complications Type 2 diabetes mellitus without complications [facility] 10/28/2024 Ambulatory Strain of muscle and tendon of unspecified wall of thorax, initial encounter Strain of muscle and tendon of unspecified wall of thorax, initial encounter [facility] 07/30/2024 Ambulatory Encounter for immunization Encounter for immunization [facility] 05/12/2024 Ambulatory Malignant neoplasm o f base of tongue Malignant neoplasm of base of tongue [facility] 03[place]19/2024 Ambulatory Localized edema Localized edema [facility] 02/13/2024 Ambulatory Type 2 diabetes mellitus without complications Type 2 diabetes mellitus without complications [facility] 01/29/2024 Ambulatory Low back pain, unspecified Low back pain, unspecified [facility] 12/05/2023 Ambulatory Malignant neoplasm o f base of tongue Malignant neoplasm of base of tongue [facility] [place] 11/15/2023 Ambulatory Dysuria Dysuria [facility] 10/28/2023 Ambulatory Acute cough Acute cough [facility] 10/10/2023 Ambulatory Malignant neoplasm o f base of tongue Malignant neoplasm of base of tongue [facility] [place] 08/01/2023 Ambulatory Type 2 diabetes mellitus without complications Type 2 diabetes mellitus without complications [facility] 07/23/2023 Ambulatory Malignant neoplasm o f base of tongue Malignant neoplasm of base of tongue [facility] [place] 05/21/2023 Ambulatory Malignant neoplasm o f base of tongue Malignant neoplasm of base of tongue [facility] [place] 04/03/2023 Ambulatory Malignant neoplasm o f base of tongue Malignant neoplasm of base of tongue [facility] [place] 03/26/2023 Ambulatory Malignant neopla sm of base of tongue [facility] [place] 01/22/2023 Ambulatory Malignant neopla sm of base of tongue [facility] [place] 12/19/2022 Ambulatory [facility] 12/04/2022 Ambulatory [facility] 12/04/2022 Ambulatory [facility] 11/23/2022 Ambulatory [facility] 11/23/2022 Ambulatory [facility] 11/19/2022 Ambulatory [facility] 11/19/2022 Ambulatory [facility] 11/16/2022 Care Team Organization Name Specialty Phone Email Start Date End Da te [facility] BRITTANY Primary Care 10/29/2024 [facility] PCP Wardrobe Coordinator 07/23/2023 [facility] RYDER SOTO Primary Care 07/23/2023 [facility] NO PCP Primary Care 07/23/2023 07/23/2023 [facility] 07/21/2023 [facility] Ramses Rousseau Primary Care 12/24/2022 03/05/2024 [facility] [place] RYDER SOTO Primary Care 12/19/2022 12/19/2022 [facility] RYDER SOTO Primary Care 10/22/2022 10/22/2022 [facility] RYDER SOTO Primary Care 05/31/2022 02/17/2024
--- OUTSIDE RECORDS SUMMARY | 2024-12-31 06:28 | XMS_ITS | Clinical Summary ---
Author Organization [facility] Address [address] [place] [address] Care Team Providers Care Confidential Investigator Name Role Phone Laurie Guzman Primary Care Provider [phone] Surgical History Surgery Date Site/Laterality Comments KNEE SURGERY Right PROCEDURE:KNEE SURGERY COLONOSCOPY PROCEDURE:COLONOSCOPY HAND SURGERY Bilateral PROCEDURE:HAND SURGERY HERNIA REPAIR PROCEDURE:HERNIA REPAIR;COMMENT:umbilical LARYNGOSCOPY 09/19/2022 Bilateral PROCEDURE:LARYNGOSCOPY;COMMENT:Procedure: DIRECT LARYNGOSCOPY WITH BIOPSY; Surgeon: Soham Pearce MD; Location: [facility] AMBULATORY SURGERY; Service: ENT; Laterality: Bilateral; Medical [...] age to complete this topic Care Teams Confidential Investigator Relationship Specialty Start Date End Date Laurie Guzman PA [address] [facility] [address] [place] [phone] PCP - General Physician Development Technologist 03/15/22
--- OUTSIDE RECORDS SUMMARY | 2024-12-31 06:28 | XMS_ITS | Patient Health Record ---
Author Organization [facility] Address [address] [place] [address] Care Team Providers Care House Mover Helper Name Role Phone Laurie Manjarrez PA-C Primary Care Provider Nicole acBrenda Cole Unavailable [phone] Allergies Allergen (clinical drug ingredient) Drug/Non Drug [...] Problem Acquired hammer toe of right foot (83283938483 39305) Other hammer toe(s) (acquired), right foot (M20.41) Active confirmed Problem Acquired hammer toe of left foot (11597430053 18730) Other hammer toe(s) (acquired), left foot (M20.42) [...] breakdown of skin (L97.521) Active confirmed Problem Ulcer of toe of right foot (disorder) (10110060480 338362) Skin ulcer of toe of right foot, limited to breakdown of skin (L97.511) Active confirmed Response to treatment Problem Ulcer of toe of left foot (disorder) (39145781363 331745) Skin ulcer of toe of left foot, limited to breakdown of skin (L97.521) Active confirmed Response to treatment Vital Signs Height 5ft6in in 04/16/2024 Weight 225 lbs 04/16/2024 BMI 36.31 kg/m2 04/16/2024 Procedures Procedure Date Ordered Date Performed Result Body Sit e 85938- Debride <25 sq cm 04/16/2024 N/A 22956-Pmarysil Plate Each Additional 04/03/2024 N/A 21606-Aiwljjit Plate 04/03/2024 N/A Encounters Encounter Location Date Provider Diagnosis [facility] [address] [address] 04/03/2024 Brneda Black Ingrown nail L60.0 ; Toe pain, left M79.675 and Pain of toe of right foot M79.674 [facility] [address] [address] 04/16/2024 Brenda Black Skin ulcer of toe of left foot, limited to breakdown of skin L97.521 and Skin ulcer of toe of right foot, limited to breakdown of skin L97.[address] [facility] [address] 03/30/2024 Brenda Bowser Assessments Encounter Date Diagnosis (ICD Code) Assessment [...] Treatment Pending Test Test Name Order Date 03771-Ttgmsmkb Plate 06/21/2022 53137-Uhkuslxb Plate 04/03/2024 53988-Rsuucfxx Plate Each Additional 09/2023 63549-Hcemygns Plate Each Additional 98833- Debride <25 sq cm 06/21/2022 79194- Debride <25 sq cm 07/12/2022 42972- Debride <25 sq cm 04/16/2024 Insurance Providers Payer Name Payer Address Payer Phone Subscriber Number Group Number Insured Name Patient Relationship to Insured Coverage Start Date Coverage End Date Medicare National Govt Sv[employer] [address] [place] [address] [id number] Alexander Uriostegui Self - patient is the insured [employer] [facility] [address] [place] [address] [id number] Alexander Uriostegui Self - patient is the insured Medical (General) History Medical History History ICD Code Hepatitis High blood pressure Measles Mumps Chicken pox Back,Hip,and Knee pain covid-19 Diverticulosis Lung disease (ILD) Sciatica Pulmonary fibrosis Surgical History Surgery Date(Month/Year) hernia 2009 meniscus 2020 carpal tunnel surgery, bilateral 2020
--- OUTSIDE RECORDS SUMMARY | 2024-12-31 06:28 | XMS_ITS | Clinical Summary ---
Author Organization [facility] Address [address] [place] [address] Care Team Providers Care Caseworker Intake Name Role Phone Laurie Guzman Primary Care Provider [phone] Allergies Active Allergy Reactions Criticality Noted Date [...] age to complete this topic Care Teams Caseworker Intake Relationship Specialty Start Date End Date Laurie Guzman PA PCP - General Physician Extension Forester 03/15/22
== END 2024-12-30 06:41 | disposition home or self-care (01) ==
LOC: HO.HOSX 06:40
PROVIDERS: Visit Provider Orthopaedic Surgery
DX: M17.0 Bilateral primary osteoarthritis of knee (principal)
CPT/HCPCS: 73562; 99212

== ENCOUNTER 2024-12-30 08:42 | Outpatient (AMB) | payer MEDICARE, SELFPAY ==
[2024-12-30 08:44] VITALS: BMI 37.4
--- NOTE | 2024-12-30 08:44 | MHC.OFFVIS ---
Vital Signs 12/30/24 08:44 Height 5 ft 6 in Weight 232 lb BMI 37.4 Intake Visit Reasons: New prob - bilat knee pain Intake Note: Alexander is a 69 year old male who presents today with new complaints of bilateral knee pain. He describes his pains as sharp in nature. His pains have gotten worse over the last 6 months in spite of continued non operative treatments. He has failed the last 3 months of conservative treatment which has included a home exercise program, physical therapy exercises, Tylenol and Aleve. He has had cortisone injections in the past. The most recent cortisone injection gave him no relief. He has also had viscosupplementation injections which gave him good relief. He wishes to hold off on total knee replacement surgery for as long as possible. At this point his bilateral knee pains are interfering with his activities of daily living and his ability to sleep well through the night. Allergies lisinopril Allergy (Unknown, Verified 12/30/24 08:45) Unknown Medication List - Last Reconciled 12/30/24 by Hebert Heredia MD alfuzosin ER 10 mg PO DAILY aspirin 81 mg PO DAILY atorvastatin 10 mg PO DAILY budesonide 0.5 mg (2 mL) inhalation DAILY 30 days citalopram 20 mg PO DAILY finasteride 5 mg PO DAILY fluticasone furoate-vilanterol 100-25 mcg/dose (Breo Ellipta) 1 inh inhalation DAILY 30 days fluticasone propion-salmeterol 250-50 mcg/dose (Wixela Inhub) 1 inh inhalation Q12H 30 days gabapentin 200 mg PO BID levalbuterol HCl 1.25 mg (3 mL) inhalation BID losartan 25 mg PO DAILY Oxygen Home Use As directed prednisone PO daily; Take 2 tabs daily x 5 days, then 1 tablet daily x 5 days 10 days ProAir HFA 90 mcg/actuation (albuterol sulfate) 2 puffs inhalation Q4H PRN NS PFSH Medical History COPD (chronic obstructive pulmonary disease) Head and neck cancer ILD (interstitial lung disease) Pneumonitis Pulmonary nodule Lower extremity edema Dyspnea Chronic bronchitis Cough Chronic restrictive lung disease COVID-19 Pulmonary fibrosis Surgical History History of bilateral carpal tunnel release Hx of umbilical hernia repair Social History Household Members: Spouse Household Members Other:: Kristen - Patient Tobacco Use Status: Never used Tobacco Second Hand Smoke Exposure: No Current occupational status: retired Current occupation: Right hand dominant Physical Exam Vital Signs: BMI result Body Mass Index 37.4 Const Other: Well-nourished well-developed very friendly male awake alert and oriented x3 in no acute distress Extrem Other: Bilateral lower extremity examination shows good capillary refill, no skin lesions noted, normal sensation light touch Bilateral knee examination shows minimal effusions, palpable crepitus with range of motion, pain with range of motion, no instability Results Reviewed Results Reviewed: X-rays of the patient's bilateral knees taken today show moderate joint space narrowing most significant in the medial compartments, subchondral sclerosis, no acute bony abnormalities Assessment & Plan Assessment & Plan (1) Osteoarthritis of left knee: Code(s): M17.12 - Unilateral primary osteoarthritis, left knee Category: Medical (2) Osteoarthritis of right knee: Code(s): M17.11 - Unilateral primary osteoarthritis, right knee Category: Medical Plan Mr. Uriostegui presents with bilateral knee pains due to osteoarthritis. I had a lengthy discussion with the patient regarding the treatment options. He wishes to hold off on total knee replacement surgery for as long as possible. I agree with this plan. I will see if the patient's insurance company will cover a viscosupplementation injection, such as Durolane, for both of his knees. I will see him back once the injections are available. Feel free to call me at any time should questions regarding his orthopedic management arise. I spent 21 minutes in reviewing the patient's records and imaging studies, seeing the patient and documenting in the medical record. Orders: Orders XR Knee Don 3V Today M25.561 - Pain in right knee, M25.562 - Pain in left knee Coding Level of Care Code Est Pt Level 3 (46210) Complex EM visit Add On G2211 Diagnoses Osteoarthritis of left knee M17.12 Osteoarthritis of right knee M17.11
--- OUTSIDE RECORDS SUMMARY | 2024-12-30 08:47 | XMS_ITS | Data Portability ---
Author Organization [place] [facility] Esa Morin AONE Kennard Address [address] [place] [address] Care Team Providers Care Surgical Territory Manager Name Role Phone RYDER SOTO Primary Care Provider Assessment Encounter Date Assessment Date Assessment LastModified by Organization Details LastModified Time 11/19/2022 11/19/2022 Mr. Uriosteugi has a grade 3 AC separation after falling down stairs. Aggravating alleviating factors were discussed. Injury occurred 11/14/2022. There does appear to be a irregularity to the cortex in the humeral head which is nondisplaced but could represent greater tuberosity fracture. We discussed additional imaging. He did not tolerate an MRI in the past. CAT scan could be ordered, but he would like to just monitor his symptoms since treatment would not change at this point. We will abrahan-ray him in 2 weeks. Depending on the findings we will decide how aggressively we are with starting therapy. 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 He cannot have anything on his neck including the strap from a sling. We will try to obtain a swath either at a medical supply store or online. A picture of what he could obtain was given to him. [email or web address] Not available 11/19/2022 16:01:30 11/20/2022 11/20/2022 Symptoms are consistent with left hamstring strain as result of this fall. X-rays of his hip and femur were unremarkable. Lumbar imaging demonstrated degenerative changes but no acute fracture. Symptoms started immediately after his fall. He will proceed with a trial of physical therapy focusing on range of motion and anti-inflammatory modalities. Progressive strengthening and home exercise program as he improves. He has follow-up scheduled for his shoulder. We will address both areas on his next visit. [email or web address] Not available 11/20/2022 12:07:28 12/03/2022 12/03/2022 Aleaxnder has nondisplaced greater tuberosity fracture which is unchanged since his initial visit. At this point, he will start physical therapy working on range of motion and progressing slowly with strengthening. He will follow-up in 1 month to assess his progress, sooner if any complications. His hamstring symptoms have been improving. At this point hold off on physical therapy for this area and focus on his shoulder. Follow-up in 1 month. [email or web address] Not available 12/03/2022 12:10:52 01/22/2023 01/22/2023 Patient's residu al symptoms are consistent with his AC separation. He is made improvements in regards to the greater tuberosity fracture and impingement. He will continue with home range of motion activities. He still has some mild discomfort over the AC joint and can try using Voltaren gel. He had a recent hospitalization for dehydration, malnutrition and thrush. He has recently undergone treatment for throat cancer. Corticosteroid injection will be avoided. He will follow-up in 1 month to assess his progress, sooner for any complications. [email or web address] Not available 01/22/2023 10:36:14 02/14/2023 02/14/2023 [facility]ESS [facility] Previous Visit (if applicable) 01/22/2023: (JIMBO) Patient's residual symptoms are consistent with his AC separation. He is made improvements in regards to the greater tuberosity fracture and impingement. He will continue with home range of motion activities. He still has some mild discomfort over the AC joint and can try using Voltaren gel. He had a recent hospitalization for dehydration, malnutrition and thrush. He has recently undergone treatment for throat cancer. Corticosteroid injection will be avoided. He will follow-up in 1 month to assess his progress, sooner for any complications. IMPRESSION/PLAN : Alexander presented back to the office today for repeat evaluation of his left shoulder. He did not have any significant symptomatic improvement, however, he did have good range of motion on exam and was only focally tender within his AC joint. We had a lengthy discussion regarding treatment options recommendations. At this time, it is decided to proceed with getting back into physical therapy for root cuff program as he had some supraspinatus discomfort on exam today without any significant weakness. This will also help him with range of motion as well and hopefully help his trapezius spasm that was evident on exam today as well. He agrees. We will see him back in approxi-3 to 4 weeks for repeat evaluation. At that time, if he does not have any significant movement we may want to consider steroid injection versus advanced imaging. We reviewed my findings at length with the patient today. We discussed the nature and etiology of this problem along with current treatment options. We discussed the expected course and outcomes and what to expect. We also discussed risks and benefits. All of their questions were answered today, and there was exhibited understanding and comprehension of all that was discussed. The patient will return to the office in approximately 4 week(s) for a repeat evaluation and discussion of further treatment recommendations. Interim History : The patient presents to [facility] today for repeat evaluation of his right shoulder now approximately 3 months out from his injury. He returns today noting that he has not had any significant improvement since his previous visit. Since his hospitalization he has not participated with any further physical therapy. Injections have also been held secondary to his recent illnesses. He has no other complaints today and denies any new injury or trauma. REVIEW OF SYSTEMS : Refer to HPI. Patient currently denies any chest pain, shortness of breath, headache, abdominal pain, numbness, tingling, or other musculoskeletal injuries. Also denies any recent infections including viral illnesses, weight loss, night sweats, fevers, chills, rigors, and body aches. Focused Physical Examination: Focused Physical Examination of the Right Shoulders Alert and oriented. Answers questions appropriately. Cervical spine reveals full range of motion. No midline tenderness or step-off. Spurling's maneuvers negative bilaterally. Left shoulder reveals intact skin. ROM: full Impingement signs negative. No palpation tenderness. Intact rotator cuff strength. Provocative maneuvers for instability are negative. Negative Speed's test. No adenopathy. Right shoulder reveals intact skin. No swelling or deformity. No adenopathy. Range of motion: Active and passive motion is limited. Abduction 150, Flexion to 150, ER 45, IR Lower lumbar. Tenderness: Tender in the Directly over the AC joint. No other significant focal tenderness within the right shoulder or right upper extremity. Scapula: Nontender Strength: Supraspinatus: 4+/5, ER: 5/5, IR: 5/5. SupraSpinatus: EmptyCan Test positive;DropArm Test negative Impingement: Neer's Test negative; Hawkin's Test positive Biceps: 5/5. Speed s Test negative; Yergason Test negative. No visible deformity. AC Joint: CrossArm Test negative Labrum/Stability: Enrique Test negative; Load and shift test shows negative laxity. Apprehension Test negative. Full motion of the elbows, wrists, and fingers. 2+ radial pulse equal and symmetric bilaterally. Light touch sensation intact in all distributions. IMAGING/DIAGNOSTIC TESTING: See Discussion Notes Section Below WORKING DIAGNOSIS : right shoulder AC joint pain, rotator cuff tendinitis Procedure : See Procedure Notes Section Below Patient was seen and evaluated by Nino Hernandez PA-C in indirect conjuction with Documenting Provider: Tyrese Santillan MD . He/She agrees with history, physical examination, tests/diagnostic imaging, and treatment plan. Nino Hernandez PA-C [facility] Not available 02/14/2023 09:38:47 Plan of Treatment Reminders Order Date Submit Date Provider Last Modified By Organization Details Last Modified Time Details Appointments None recorded. Lab None recorded. Referral physical therapist referral - Closed nondisplace d fracture of the greater tuberosity 5 2022 and AC sprain. Frequency: 2 visits per week for 6 weeks Therapy: Evaluate and Treat Modalities: As needed Precautions - if any: Passive and active assisted range of motion for 1-2 weeks progressing to active range of motion and strengtheni ng over the next month. Goals: ROM, HEP, Decrease Pain, Increase Strength and Increase Endurance. Scapular and shoulder stabilizati on 2022 023 [email or web address] Not available 12:22:12 physical therapist referral - Frequency: 2 visits per week for 6 weeks Therapy: Evaluate and Treat Modalities: As needed Precautions - if any: Goals: ROM, HEP, Decrease Pain, Increase Strength and Increase Endurance. 2022 023 [email or web address] Not available 3 08:12:04 Procedures None recorded. Surgeries None recorded. Imaging XR, shoulder, 2 or more view 2022 023 [email or web address] 9 [facility], [address], [place], [address], 3 13:28:35 XR, shoulder, 2 or more view 2022 023 [email or web address] 21 [facility], [address], [address], [place], [address], 3 11:36:22 XR, shoulder, 2 or more view 2022 023 [email or web address] 21 [facility], [address], [place], [address], 3 13:41:28 XR, lumbosacral spine, 2 or 3 view 2022 023 [email or web address] 21 [facility], [address], [address], [place], [address], 3 09:14:19 XR, shoulder, 2 or more view 2022 023 [email or web address] 21 [facility], [address], [address], [place], [address], 3 16:50:49 Medication Orders None recorded. Patient TargetsNo targets recorded. Patient InstructionsNo instructions recorded. Reason for Referral Physical Therapist Referral for Strain of hamstring tendon Frequency: 2 visits per week for 6 weeksTherapy: Evaluate and TreatModalities:As neededPrecautions - if any:Goals: ROM, HEP, Decrease Pain, Increase Strength and Increase Endurance. Referring Physician: Nadeem Dickson, Orthopedic Surgery, Encounter Date: 11/20/2022 Physical Therapist Referral for Closed fracture proximal humerus, greater tuberosity Closed nondisplaced fracture of the greater tuberosity 11 14 2022 and AC sprain.Frequency: 2 visits per week for 6 weeksTherapy: Evaluate and TreatModalities:As neededPrecautions - if any: Passive and active assisted range of motion for 1-2 weeks progressing to active range of motion and strengthening over the next month.Goals: ROM, HEP, Decrease Pain, Increase Strength and Increase Endurance. Scapular and shoulder stabilization Referring Physician: Nadeem Dickson, Orthopedic Surgery, Encounter Date: 12/03/2022 Problems Name Problem SNOMED Code Status Onset Date Resolution Date Notes Provider Name and Address Organization Details Recorded Time Closed traumatic dislocation acromioclav icular joint 538767577 Active 2022 NADEEM DICKSON PA-C [address], [place], [address], [place] [facility], [facility] 3 10:37:07 Closed traumatic dislocation acromioclav icular joint 969629835 Active [address], [place], [address], [place] [facility], [facility] 3 15:41:19 Closed fracture proximal humerus, greater tuberosity 917933351 Active 2022 NADEEM DICKSON PA-C [address], [place], [address], [place] [facility], [facility] 3 16:01:59 Strain of hamstring tendon 070303236 Active 2022 NADEEM DICKSON PA-C [address], [place], [address], [place] [facility], [facility] 3 12:04:20 Pain in lumbar spine 376935357 Active 2022 NADEEM DICKSON PA-C [address], [place], [address], [place] [facility], [facility] 3 12:07:29 Impingement syndrome of right shoulder region 3750947331933 02 Active 2022 Hebert Heredia MD [address] [place] [address], [place], [address], [place] [facility], [facility] 3 11:03:17 Problem Notes None recorded. Procedures Surgical History Date Name Laterality Status Provider Name and Address Organization Details Recorded Time operative procedure on knee completed Nuzhat Mcgee [place] [facility] 09/12/2022 10:42:42 Imaging Results None recorded. Procedure Notes None recorded. Medical Equipment None Reported. Allergies No known drug allergies Medications Name Sig Start Date Stop Date Status Note LastModified by Organization Details LastModified Time losartan 50 mg tablet TAKE 1 TABLET BY MOUTH EVERY DAY 01/22 completed Not Available Not Available Not Available cyclobenzap rine 10 mg tablet PLEASE SEE ATTACHED FOR DETAILED DIRECTION S 02/14 completed Not Available Not Available Not Available clotrimazol e 10 mg linda DISSOLVE 1 TABLET SLOWLY IN THE MOUTH 5 TIMES DAILY FOR 14 DAYS 02/14 completed Not Available Not Available Not Available nystatin 100,000 unit/mL oral suspension TAKE 5 ML SWISH AND SPIT 4 TIMES A DAY FOR 7 DAYS 01/22 completed Not Available Not Available Not Available prednisone 10 mg tablet TAKE 2 TABS DAILY X 14 DAYS, THEN 1 TAB DAILY X 42 DAYS 01/22 completed Not Available Not Available Not Available atorvastati n 10 mg tablet TAKE 1 TABLET BY MOUTH EVERYDAY AT BEDTIME active Not Available Not Available No t Available oxybutynin chloride ER 10 mg tablet,exte nded release 24 hr TAKE 1 TABLET BY MOUTH EVERY DAY 02/14 completed Not Available Not Available Not Available azithromyci n 250 mg tablet TAKE 1 TABLET (250 MG TOTAL) BY MOUTH DAILY. TAKE 2 TABLETS ON DAY ONE AND THEN 1 TABLET PER DAY. 01/22 completed Not Available Not Available Not Available Lidocaine Viscous 2 % mucosal solution USE DIRECTED 5 ML IN THE MOUTH OR THROAT NEEDED FOR PAIN. 01/22 completed Not Available Not Available Not Available benzonatate 200 mg capsule TAKE 1 CAPSULE BY MOUTH TWICE A DAY NEEDED FOR COUGH 02/14 completed Not Available Not Available Not Available citalopram 10 mg tablet TAKE 1 TABLET BY MOUTH EVERY DAY active Not Available Not Available No t Available prochlorper azine maleate 10 mg tablet TAKE 1 TABLET BY MOUTH 3 TIMES A DAY NEEDED 01/22 completed Not Available Not Available Not Available aspirin 81 mg capsule,del ayed release Take by oral route. 02/14 completed Not Available Not Available Not Available amoxicillin 400 mg-potassiu m clavulanate 57 mg/5 mL oral suspension TAKE 10 ML BY MOUTH EVERY TWELVE HOURS 01/22 completed Not Available Not Available Not Available citalopram 20 mg tablet TAKE 1 TABLET BY MOUTH EVERY DAY 02/14 completed Not Available Not Available Not Available pantoprazol e 40 mg tablet,tamra yed release TAKE 40 MG BY MOUTH 2 TIMES A DAY FOR 11 DAYS 01/22 completed Not Available Not Available Not Available losartan 25 mg tablet TAKE 1 TABLET BY MOUTH EVERY DAY active Not Available Not Available No t Available budesonide 0.5 mg/2 mL suspension for nebulizatio n INHALE 2 ML VIA NEBULIZER DAILY FOR 30DAYS 02/14 completed Not Available Not Available Not Available codeine 10 mg-guaifene sin 100 mg/5 mL oral liquid TAKE 10MLS BY MOUTH EVERY 6 HOURS FOR 10 DAYS NEEDED FOR COUGH 01/22 completed Not Available Not Available Not Available furosemide 20 mg tablet TAKE 1 TAB BY MOUTH DAILY 02/14 completed Not Available Not Available Not Available gabapentin 100 mg capsule PLEASE SEE ATTACHED FOR DETAILED DIRECTION S 02/14 completed Not Available Not Available Not Available levalbutero l 1.25 mg/3 mL solution for nebulizatio n INHALE 1 VIAL VIA NEBULIZER 2 TIMES A DAY 02/14 completed Not Available Not Available Not Available albuterol sulfate HFA 90 mcg/actuati on aerosol inhaler INHALE 2 PUFF EVERY 4 HOURS NEEDED FOR SHORTNESS OF BREATH OR WHEEZING 02/14 completed Not Available Not Available Not Available atenolol 50 mg tablet TAKE 1 TABLET BY MOUTH EVERY DAY 02/14 completed Not Available Not Available Not Available finasteride 5 mg tablet TAKE 1 TABLET BY MOUTH EVERY DAY 02/14 completed Not Available Not Available Not Available oxycodone 5 mg tablet TAKE 1 TABLET BY MOUTH EVERY 6 HOURS NEEDED FOR PAIN 01/22 completed Not Available Not Available Not Available Klor-Con M20 mEq tablet,exte nded release TAKE 1 TABLET BY MOUTH EVERY DAY WITH FOOD active Not Available Not Available No t Available alfuzosin ER 10 mg tablet,exte nded release 24 hr TAKE 1 TABLET BY MOUTH EVERY DAY active Not Available Not Available No t Available metformin ER 1,000 mg tablet,exte nded release 24hr (osmotic) TAKE 1 TABLET BY MOUTH EVERY DAY (1,000 MG) IN THE EVENING WITH DINNER active Not Available Not Available No t Available Tussin Cough (DM only) 15 mg capsule TAKE 2 CAPSULES EVERY 6 HOURS NEEDED FOR COUGH FOR 14 DAYS 01/22 completed Not Available Not Available Not Available hydrochloro thiazide 01/22 completed Not Available Not Available Not Available benzonatate 01/22 completed Not Available Not Available Not Available oxybutynin 01/22 completed Not Available Not Available Not Available hydrochloro thiazide 12.5 mg tablet TAKE 1 TABLET BY MOUTH EVERY DAY active Not Available Not Available No t Available diclofenac 1 % topical gel APPLY 2 GRAMS TOPICALY 4 TIMES PER DAY FOR 10 DAYS 01/22 completed Not Available Not Available Not Available Trelegy Ellipta 100 mcg-62.5 mcg-25 mcg powder for inhalation INHALE ONCE DAILY FOR 30 DAYS 02/14 completed Not Available Not Available Not Available Vitals Date Recorded Body height Body mass index (BMI) Body weight Provider Name and Address Organization Details Last Updated DateTime 11/19/2022 167.64 cm 43.6 kg/m2 555067.94 g Jessica Jauregui [facility] 11/19/2022 14:42:42 Date Recorded Body height Body mass index (BMI) Body weight Provider Name and Address Organization Details Last Updated DateTime 11/20/2022 167.64 cm 43.6 kg/m2 740642.94 g Jessica Jauregui [facility] 11/20/2022 11:20:05 Date Recorded Body height Body mass index (BMI) Body weight Provider Name and Address Organization Details Last Updated DateTime 12/03/2022 167.64 cm 43.6 kg/m2 524887.94 g Jessica Jauregui [facility] 12/03/2022 11:51:56 Date Recorded Body height Body mass index (BMI) Body weight Provider Name and Address Organization Details Last Updated DateTime 01/22/2023 167.64 cm 43.6 kg/m2 461508.94 g Tobinridge Juventino [facility] 01/22/2023 10:03:10 Date Recorded Body height Body mass index (BMI) Body weight Provider Name and Address Organization Details Last Updated DateTime 02/14/2023 167.64 cm 43.6 kg/m2 003727.94 g Tobinridge Juventino [facility] 02/14/2023 08:59:16 Social History Question Answer Notes LastModified by Organizat ion Details LastModified Time Tobacco Smoking Status Former Smoker Jessica boyd [facility] 11/19/2022 14:45:22 When Did You Quit Smoking? 16+yearssinc elastcigaret te [email or web address] Information not available 11/19/2022 Sex: Unknown Functional Status Question Answer Note LastModified by Organizat ion Details LastModified Time Do you use any illicit or recreational drugs? No [email or web address] Information not available 11/19/2022 Do you or have you ever used any other forms of tobacco or nicotine? No [email or web address] Information not available 11/19/2022 What is your level of alcohol consumption? Moderate [email or web address] Information not available 11/19/2022 Mental Status None recorded. Family History Relationship Description Onset Age of this Age Resolved Age Notes LastModified by Organization Details LastModified Time Brother Family history of malignant neoplasm [email or web address] Not available 2022 10:41:47 Mother Heart disease [email or web address] Not available 2022 10:42:06 Father Heart disease [email or web address] Not available 2022 10:42:13 Medical History Condition Response Hepatitis Y Hypertension Y Past Encounters Encounter ID Performer Location Encounter Start Date Encounter Closed Date Diagnosis/Indication Diagnosis SNOMED-CT Code Diagnosis ICD10 Code Diagnosis Note [id number] MD MADY Irby [facility] [address] [place] [address] 09/12/2022 10:26:23 09/12/2022 11:01:35 Impingement syndrome of right shoulder region 9420434400 02689 M75.41 [id number] NADEEM DICKSON PA-C [place] [id number] 11/19/2022 14:33:34 11/19/2022 16:00:44 Impingement syndrome of right shoulder region 2419648338 06341 M75.41 Closed tra umatic dislocation acromioclavicular joint 809599334 S43.121A Closed fra cture proximal humerus, greater tuberosity 640199089 S42.254A [id number] [address] [address] 11/20/2022 10:59:36 11/20/2022 12:11:44 Pain in lumbar spine 389087271 M54.51 Strain of hamstring tendon 712254684 S76.312A [id number] NADEEM DICKSON PA-C [address] [address] 12/03/2022 11:38:19 12/03/2022 12:22:11 Impingement syndrome of right shoulder region 9552921083 09799 M75.41 Strain of hamstring tendon 548629934 S76.312A Closed fra cture proximal humerus, greater tuberosity 871756555 S42.254A [id number] NADEEM DICKSON PA-C [facility] [address] [place] [address] 01/22/2023 09:36:57 01/22/2023 10:31:47 Closed fracture proximal humerus, greater tuberosity 519522209 S42.254A Closed tra umatic dislocation acromioclavicular joint 014836930 S43.121A Grade 2 [id number] NINO HERNANDEZ PA-C [facility] [address] [place] [address] 02/14/2023 08:54:55 02/14/2023 09:33:42 Closed fracture proximal humerus, greater tuberosity 643039889 S42.254A Health Concerns Section Related Observation LastModified by Organization Detai ls LastModified Time None Recorded Concern Status LastModified by Organization Details LastModified Time None Recorded Advance Directives Directive None Recorded Payers Insurance Date Sequence Insurance Name Policy Number Policy Kelley Covered Member ID Kelley Member ID Guarantor Name 09/08/2022 1 [place] [employer] Alexander Uriostegui [id number] Alexander Uriostegui 10/17/2022 2 [place] [id number] Alexander Uriostegui [id number] Alexander Uriostegui Notes Date Note Type Note Provider Name and Address Organization Details Recorded Time 11/19/2022 text/html Patient is a pleasant 67-year-old male who presents today with right shoulder pain. Unfortunate, he fell down stairs and had significant pain in his shoulder. He was seen the next day at an urgent care. X-rays are taken. He was diagnosed with an AC separation. With his ongoing pain he presents today for orthopedic consultation. No numbness or tingling. Pain with any motion in his shoulder. NADEEM DICKSON PA-C [address], [place], [address], [place] [facility] 11/19/2022 16:04:10 11/20/2022 text/html Patient is a pleasant 67-year-old male seen yesterday for AC separation. He had called his primary after his visit and reported pain in his posterior thigh. He was recommended to be again seen in our practice. He had fallen on 11/14/2022 and admits to having immediate pain in his posterior thigh as well. His initial work-up had included hip and femur x-rays. No significant findings were noted.He has difficulty when he is standing and walking. He also cannot pull his leg towards and without severe pain in the posterior thigh. No numbness or tingling. NADEEM DICKSON PA-C [address], [place], [address], [place] [facility] 11/20/2022 12:11:01 12/03/2022 text/html [facility]. He had fallen 3 weeks ago. X-rays of his right shoulder demonstrated nondisplaced fracture to the greater tuberosity. He does have mild degenerative changes in the shoulder. He has made improvements since his last visit and is scheduled to start physical therapy at the end of December for his hamstring which was the soonest appointment he can get in [place] at [facility]. His leg and back are making improvements. His shoulder still bothers him at times and with specific movements NADEEM DICKSON PA-C [address], [place], [address], [place] [facility] 12/03/2022 12:16:13 01/22/2023 text/html Alexander returns today for follow-up of right shoulder pain. He had fallen down a small flight of stairs and suffered a AC joint separation and greater tuberosity fracture. Overall he has been doing well. He still has pain on the top of his shoulder with specific movements. He was sent for physical therapy but did not go secondary to recent hospitalization. He has a history of throat cancer and had radiation treatments. He had secondary developed thrush and became dehydrated and have malnutrition. He has been out of the hospital for 2 weeks. He is still having pain on the top of his shoulder with specific movements and at times during sleep. No numbness or tingling. No weakness. NADEEM DICKSON PA-C [address], [place], [address], [place] - [facility] 01/22/2023 10:37:45
--- OUTSIDE RECORDS SUMMARY | 2024-12-30 08:47 | XMS_ITS | Encounter Summary ---
Author Organization [facility] Address [address] [place] [address] Care Team Providers Care Dipper And Baker Name Role Phone Soham Pearce MD Primary Care Provider Encounter Details Date Type Department Care Team (Late st Contact Info) Description 09/27/2022 Orders Only [facility] [address] [place], [place] [id number] Soham Pearce MD [address] [facility] [address] [place], [place] [id number] Social History Tobacco Use Types Packs/Day Years Used Date Smoking Tobacco: Never Assessed Sex and Gender Information Value Date Recorded Sex Assigned at Not on file Legal Sex Male 3:02 PM EDT Gender Identity Not on file Sexual Orientation Not on file documented as of this encounter Procedure Notes * Soham Pearce MD - 09/27/2022 1:47 PM EDT Verified Results CT Neck General With Contrast 17Sep2022 01:45PM Soham Pearce TESTING PERFORMED AT: [address] [address], PHONE [phone], FAX [phone] Test Name Result Flag Reference CT Neck With Contrast (Report) EXAMINATION: CT SOFT TISSUE NECK WITH CONTRAST CLINICAL INFORMATION: 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 COMPARISON: None available. TECHNIQUE: Following intravenous administration of 100 mL of Omnipaque 300 contrast, helical imaging was performed in the axial plane with generation of coronal and sagittal reformatted images. This CT examination was performed using dose optimization techniques as appropriate, variously including the following: *Automated exposure control *Adjustment of mA and/or kV according to patient size (this includes techniques or standardized protocols for targeted exams where dose is matched to indication/reason for exam; i.e. extremities or head) *Use of iterative reconstruction technique DLP: 486.75 mGy-cm. FINDINGS: There is lobulated homogeneous soft tissue along the posterior inferior aspect of the tongue base on the right side which partially fills the right vallecula. There is no infiltration of soft tissue abnormality into the deep aspect of the tongue base. A right-sided level IIA lymph node measures up to 1.6 cm in long axis in the axial plane, otherwise within normal limits. No bulky cervical adenopathy is otherwise seen. The parotid and submandibular glands are homogeneous in aeration. No contour abnormalities or pathologic enhancement seen within the oral cavity or larynx. The thyroid gland appears normal. The imaged mediastinum is unremarkable. Mild subsegmental atelectatic changes noted in the lungs. There is mild ground-glass density in the subpleural portions of both lungs which may signify underlying mild interstitial lung disease. Moderate spondylosis noted at the C5-C6 and C6-C7 levels. The craniovertebral junction is normal. The imaged portions of the brain demonstrate no acute abnormality. There are mild atherosclerotic wall calcifications at the left carotid bifurcation with a retropharyngeal course of the left internal carotid artery. Significant wall calcifications noted at the origin of the right internal carotid artery with stenotic changes. The visualized paranasal sinuses and mastoid air cells are well aerated. There is an increased amount of subcutaneous fat clavicular fossae bilaterally without evidence of a discrete encapsulated fatty lesion. No periapical disease is seen in the dentition. Moderate sigmoidal-shaped nasal septal deviation noted with nasal septal spurring. IMPRESSION: Asymmetric soft tissue along the tongue base on the right side with partial obscuration of the right vallecula. Recommend correlation with findings on direct visual inspection. No pathologically enlarged cervical lymph nodes. Significant atherosclerotic disease at the origin of the right internal carotid artery with heavy wall calcifications. Retropharyngeal course of the left internal carotid artery distorting the posterior pharyngeal wall. Incidental increased amount of fat in the supraclavicular fossae bilaterally which can be seen in the setting of Madelung disease (multiple symmetric lipomatosis); clinically correlate. Thank you for referring your patient to us, Po Marie MD [phone] (Electronically Signed - 09/26/2022 12:48) Copy: RYDER SANZ [facility] [address] [place] [address] documented in this encounter Plan of Treatment Not on file documented as of this encounter Visit Diagnoses Not on filedocumented in this encounter Care Teams Dipper And Baker Relationship Specialty Start Date End Date Soham Pearce MD [address] [facility] [address] [place] [address] PCP - General 02/04/23 documented as of this encounter
--- OUTSIDE RECORDS SUMMARY | 2024-12-30 08:47 | XMS_ITS | Encounter Summary ---
Author Organization [facility] Address [address] [place] [address] Care Team Providers Care Tree Killer Name Role Phone Laurie Guzman PA-C Primary Care Provi walter Bernie Christianson MD Unavailable [phone] Soham Pearce MD Unavailable [phone] Noe Huffman MD Unavailable [phone] Nadeem Garcia ND Unavailable [phone] Dennis Stephens MD Unavailable Unavailable Terrell Morgan MD Unavailable [phone] Encounter Details Date Type Department Care Team (Late st Contact Info) Description 10/10/2023 Scanned Document [facility] ENDOCRINOLOGY SCAN Endocrinology, Scan Social History Tobacco Use Types Packs/Day Years Used Date Smoking Tobacco: Never Smokeless Tobacco: Never Alcohol Use Standard Drinks/Week Comments Yes 0 (1 standard drink = 0.6 oz pur e alcohol) Sex and Gender Information Value Date Recorded Sex Assigned at Male 07/23/2023 1:30 PM EST Legal Sex Male 12:12 PM EDT Gender Identity Male 07/23/2023 1:30 PM EST Sexual Orientation Heterosexual (straight) 07/23 1:30 PM EST documented as of this encounter Plan of Treatment Upcoming Encounters Date Type Department Care Team (Late st Contact Info) Description 05/13/2025 10:30 AM EST Office Visit [address] [place] [phone] Laurie Guzman PA-C [address] [place] [address] [place] [address] documented as of this encounter Visit Diagnoses Not on filedocumented in this encounter Care Teams Tree Killer Relationship Specialty Start Date End Date Francisco JavierRenoLaurie Araujo PA-C [address] [place] [address] PCP - General Internal Medicine 07/23/23 Bernie Christianson MD [address] [place] [address] Referring Provider 05/12/24 Soham Pearce MD [address] [place] [address] [address] [place] [address] Physician Otolaryngology 05/12/24 Noe Huffman MD [address] [place] [address] Medicine Hospitalist 05/12/24 Nadeem Garcia ND [address] [place] [address] Referring Provider 05/12/24 Dennis Stephens MD [address] [place] [address] Referring Provider Urology 05/12/24 Terrell Morgan MD [address] [place] [address] Ophthalmology 05/12/24 Liz Bowser Physician Podiatry 04/27/24 documented as of this encounter
--- OUTSIDE RECORDS SUMMARY | 2024-12-30 08:47 | XMS_ITS | Continuity of Care Document ---
Author Organization [facility] [address] [place] [address] Phone [phone] Care Team Providers Care Case Supervisor Name Role Phone Laurie Guzman Care Team Information Re ceiver [phone] Problems Active Problems Provider Date Essential hypertension [...] Social History Type Date Description Comments Sex Male Sex Unknown Tobacco Use Start: Unknown Never Smoked Cigarettes Allergies and adverse reactions Active Allergies Criticality Reaction Severity Comments Date Lisinopril Unable to assess criticality 10/02/2022 Medications Active Medications SIG Qnty Indications Ordering Provider Date [id number] Tablets one tab by mouth as needed 5tabs Kris Stoner M.D. 02/27/2023 Atorvastatin Symkzfd68sa Tablets Take 1 Tablet By Mouth Everyday AT Bedtime Laurie Guzman PPaola Alfuzosin HCL ER10mg Tablets ER 24HR Take 1 Tablet By Mouth Every Day Unknown Citalopram Sjmsxojkvwzx14ck Tablets Take 2 Tablet By Mouth Every Day Laurie Guzman P.A. Albuterol Sulfate KFC384(90Base) mcg/Act Aerosol Inhale 2 puff Every 4 Hours as Needed For Shortness Of Breath Or Wheezing Noe Huffman Wsolrbpgyu089cj Capsules one prn Unknown Svfhduvdksu7mb Tablets 1 by mouth every day Unknown Losartan Nwzqmlwvc35jl Tablets Take 1 Tablet By Mouth Every Day Unknown Aspirin 8181mg Tablets DR 1 by mouth every day Unknown Vital Signs Date Vital Result Comment 10/01/2023 11:07am BP Systolic 138 mmHg BP Diastolic 80 mmHg Heart Rate 88 /min Height 66 inches 5'6 Weight 218.50 lb BMI (Body Mass Index) 35.3 kg/m2 Results Test Acquired Date Facility Test Result H/L Range Note Glucose Fingerstick 10/01/2023 Inhouse Glucose Fingerstick 132 Hemoglobin A1c 06/25/2023 Inhouse Hemoglobin A1c 6.1% Glucose Fingerstick 06/25/2023 Inhouse Glucose Fingerstick 139 Free Testosterone 05/30/2023 [facility] Testosterone, Total, LC/MS 395.3 1 Percent Free Testosterone 4.79 High 2 Free Testosterone, Equilibrium 18.93 3 Glucose Fingerstick 02/27/2023 Inhouse Glucose Fingerstick 137 Testosterone 12/27/2022 [facility] Testosterone 242 ng/dL Low (280-800 ) TSH With Reflex To FT4 10/02/2022 [facility] TSH With Reflex To FT4 1.86 uIU/mL (0.4-4.2 ) Bioavailable Testosterone 10/02/2022 [facility] Testosterone, Total, LC/MS 178.9 Low 4 Testosterone,Fr e e Weakly Bound 74.4 5 Testosterone,Fr e e Weakly % 41.6 6 Prolactin With Reflex To Monomeric 10/02/2022 [facility] Prolactin 13.3 NG/ML (4.0-15. 2) Prolactin, Monomeric 12.9 ng/dL Prolactin, Percent Monomeric 97 % 7 LH 10/02/2022 [facility] LH 5.2 MIU/ML (1.5-12. 4) 8 FSH 10/02/2022 [facility] FSH 4.3 MIU/ML (1.5-12. 4) 9 Free Testosterone Female And Juvenile 10/02/2022 [facility] Testosterone, Serum Total Pending SHBG Pending nmol/L (19-76) Free Testosterone, Estimated Pending ng/dL (3.7-14. 7) 35649-7 Test Cancelled, <SEE NOTE> 10 Testosterone,Oscar e & Total (Males > 15Yr) 10/02/2022 [facility] Testosterone 215 ng/dL Low (280-800 ) SHBG 14.3 nmol/L Low (19-76) Free Testosterone, Estimated 5.78 ng/dL (3.7-14. 7) Glucose Fingerstick 10/02/2022 Inhouse Glucose Fingerstick 199 1 Reference range: 264 .0 to 916.0 Unit: ng/dL (NOTE) This [facility] LC/MS-MS method is currently certified by the CDC Hormone Standardization Program (HoSt). Adult male reference interval is based on a population of healthy nonobese males (BMI <30) between 19 and 39 years old. Petty, et.al. EM 2017,102;1971-8703. PMID: 81181418. This test was developed and its performance characteristics determined by [facility]. It has not been cleared or approved by the Food and Drug Administration. 2 Reference range: 1.5 0 to 4.20 Unit: % 3 Reference range: 5.0 0 to 21.00 Unit: ng/dL Test performed at [address] [address] 4 Reference range: 264 .0 to 916.0 Unit: ng/dL (NOTE) This [facility] LC/MS-MS method is currently certified by the CDC Hormone Standardization Program (HoSt). Adult male reference interval is based on a population of healthy nonobese males (BMI <30) between 19 and 39 years old. Petty, et.al. EM 2017,102;0186-8620. PMID: 94513723. This test was developed and its performance characteristics determined by [facility]. It has not been cleared or approved by the Food and Drug Administration. 5 Reference range: 40. 0 to 250.0 Unit: ng/dL 6 Reference range: 9.0 to 46.0 Unit: % (NOTE) This test was developed and its performance characteristics determined by [facility]. It has not been cleared or approved by the Food and Drug Administration. Test performed at [address] [address] 7 SAMPLE CONTAINS MOST LY MONOMERIC PROLACTIN 8 Reference Range: Follicular: 2.4-12.6 mIU/mL Ovulation: 14.0-95.6 mIU/mL Luteal: 1.0-11.4 mIU/mL Postmenopausal: 7.7-58.5 mIU/mL 9 Reference Range: Follicular: 3.5-12.5 mIU/mL Ovulation: 4.7-21.5 mIU/mL Luteal: 1.7-7.7 mIU/mL Postmenopausal: 25.8-134.8 mIU/mL 10 Test Cancelled, orde r entry error Medical Devices Description No Information Available Encounters Type Date Location Provider Dx Diagnosis Office Visit 10/01/2023 11:00a Main Office Kris Stoner M.D. E11.9 Type 2 diabetes mellitus [...]
--- OUTSIDE RECORDS SUMMARY | 2024-12-30 08:47 | XMS_ITS | Clinical Summary ---
Author Organization [facility] Address [address] [place] [address] Care Team Providers Care Slicing Machine Operator/Tender Name Role Phone Laurie Guzman Primary Care Provider [phone] Surgical History Surgery Date Site/Laterality Comments KNEE SURGERY Right PROCEDURE:KNEE SURGERY COLONOSCOPY PROCEDURE:COLONOSCOPY HAND SURGERY Bilateral PROCEDURE:HAND SURGERY HERNIA REPAIR PROCEDURE:HERNIA REPAIR;COMMENT:umbilical LARYNGOSCOPY 09/19/2022 Bilateral PROCEDURE:LARYNGOSCOPY;COMMENT:Procedure: DIRECT LARYNGOSCOPY WITH BIOPSY; Surgeon: Soham Pearce MD; Location: [facility]; Service: ENT; Laterality: Bilateral; Medical History Medical History Date Comments Hypertension DX:Hypertension CASTELLANOS (dyspnea on exertion) DX:CASTELLANOS (dyspnea on exertion) Sleep apnea DX:Sleep apnea Sleep apnea, obstructive DX:Slee p apnea, obstructive;COMMENT:cpap recommended pt not compliant Visual impairment DX:Visual impa irment;COMMENT:glasses HL (hearing loss) DX:HL (hearing loss) Shingles DX:Shingles Hepatitis A DX:Hepatitis A;C OMMENT:age 8 Overactive bladder DX:Overactive bladder Claustrophobia DX:Claustrophobi a Covid 2020 DX:COVID;COMMENT :subsequent pulmonary fibrosis Social History Tobacco Use Types Packs/Day Years Used Date Smoking Tobacco: Former Smokeless Tobacco: Never Alcohol Use Standard Drinks/Week Comments Yes 0 (1 standard drink = 0.6 oz pur e alcohol) Sex and Gender Information Value Date Recorded Sex Assigned at Not on file Legal Sex Male 11:00 PM EST Gender Identity Not on file Sexual Orientation Not on file Obstetrics History Last Filed Vital Signs Vital Sign Reading Time Taken Comments Blood Pressure 142/70 01/22/2023 11:00 AM EDT Sitting Left arm Pulse 85 01/22/2023 11:00 AM EDT Temperature - - Respiratory Rate - - Oxygen Saturation - - Inhaled Oxygen Concentration - - Weight 103 kg (228 lb) 03/19/2024 1:12 PM EDT Height 162.6 cm (5' 4 ) 03/26/2023 12:5 7 PM EDT Body Mass Index 39.14 03/26/2023 12:57 PM EDT Plan of Treatment Health Maintenance Due Date Last Done Comments COVID-19 Vaccine (#1) 10/28/1960 DTaP,Tdap,and Td Vaccines (1 - Tdap) 1973 Pneumococcal Vaccine: 50+ Ye ars (1 of 2 - PCV) 1973 Zoster Vaccines (1 of 2) 1973 Abdominal Aortic Aneurysm (A AA) Screen 06/13/2022 Cholesterol Screening (Lipid Panel) 06/13/2022 Colorectal Cancer Screening: Colonoscopy 06/13/2022 Depression Screening 06/13/2022 Falls Risk Assessment 06/13/2022 Hepatitis C Screening 06/13/2022 Social Influencers of Health Screening 06/13/2022 Influenza Vaccine (Season Ended) 2025 RSV Immunization Adult Patie nts (1 - 1-dose 75+ series) 2029 HIB Vaccines Aged Out No longer eligi ble based on patient's age to complete this topic HPV Vaccines Aged Out No longer eligi ble based on patient's age to complete this topic Hepatitis A Vaccines Aged Out No long er eligible based on patient's age to complete this topic Hepatitis B Vaccines Aged Out No long er eligible based on patient's age to complete this topic IPV Vaccines Aged Out No longer eligi ble based on patient's age to complete this topic MMR Vaccines Aged Out No longer eligi ble based on patient's age to complete this topic Meningococcal ACWY Vaccine Aged Out N o longer eligible based on patient's age to complete this topic Meningococcal B Vaccine Aged Out No l onger eligible based on patient's age to complete this topic RSV Immunization Patients Un walter 20 months Aged Out No longer eligible b ased on patient's age to complete this topic Varicella Vaccines Aged Out No longer eligible based on patient's age to complete this topic Care Teams Slicing Machine Operator/Tender Relationship Specialty Start Date End Date Laurie Guzman PA [address] [facility] [address] [place] [phone] PCP - General Physician Metal Buildings Assembler 03/15/22
--- OUTSIDE RECORDS SUMMARY | 2024-12-30 08:48 | XMS_ITS | Clinical Summary ---
Author Organization [facility] Address [address] [place] [address] Care Team Providers Care Supervisor Dumping Name Role Phone Laurie Guzman Primary Care Provider [phone] Allergies Active Allergy Reactions Criticality Noted Date Comments Lisinopril Other (See Comments) 04/04/2022 cough Medications Medication Sig Dispensed Refills Start Date End Date Status alfuzosin (UROXATRAL) 10 MG 24 hr tablet Take 1 tablet (10 mg total) by mouth daily. 0 01/27/2022 Active atenolol (TENORMIN) tablet 50 mg Take 1 tablet (50 mg total) by mouth daily. 0 04/03/2022 Active benzonatate (TESSALON) 200 MG capsule TAKE 1 CAPSULE BY MOUTH TWICE A DAY NEEDED FOR COUGH 0 02/19/2022 Active citalopram (CeleXA) 10 MG tablet Take 2 tablets (20 mg total) by mouth daily. 0 02/15/2022 Active hydroCHLOROthiazide (HYDRODIURIL) tablet 12.5 mg Take 1 tablet (12.5 mg total) by mouth daily. 0 03/02/2022 Active losartan (COZAAR) tablet 50 mg Take 0.5 tablets (25 mg total) by mouth daily. 0 02/15/2022 Active oxybutynin (DITROPAN-XL) 10 MG 24 hr tablet Take 1 tablet (10 mg total) by mouth daily. 0 03/31/2022 Active metFORMIN (FORTAMET) ER 24 hr tablet 1000 mg Take 1 tablet (1,000 mg total) by mouth every morning with breakfast. 0 Active atorvastatin (LIPITOR) tablet 10 mg Take 1 tablet (10 mg total) by mouth every evening. 0 Active Albuterol Sulfate 108 (90 Base) MCG/ACT AEPB Inhale into the lungs. 0 Active aspirin EC 81 MG tablet Take 1 tablet (81 mg total) by mouth daily. 0 Active guaiFENesin-codeine (guaiFENesin AC) 100-10 MG/5ML liquid 0 Active lidocaine (XYLOCAINE) 2 % SOLN solutionIndications :Malignant tumor of base of tongue (HCC) Use as directed 5 mL in the mouth or throat as needed for pain. 100 mL 3 12/07/2022 Active Additional Information Patient not taking.Reason: Other, Reported on 01/22/2023 azithromycin (Zithromax Z-Catarino) 250 MG tabletIndications:M alignant tumor of base of tongue (HCC) Take 1 tablet (250 mg total) by mouth daily. Take 2 tablets on day one and then 1 tablet per day. 6 tablet 0 12/19/2022 Active Additional Information Patient not taking.Reason: Other, Reported on 01/22/2023 oxyCODONE (ROXICODONE) 5 MG immediate release tablet Take 1 tablet (5 mg total) by mouth every 4 (four) hours as needed for pain. 30 tablet 0 12/27/2022 Active Additional Information Patient not taking.Reason: Other, Reported on 01/22/2023 gabapentin (NEURONTIN) 100 MG capsule 0 Active Sodium Fluoride (Sodium Fluoride 5000 PPM) 1.1 % PSTEIndications:Mal ignant tumor of base of tongue (HCC) Place 1 application. onto teeth every night at bedtime. 100 mL 6 03/26/2023 Active Additional Information Patient not taking.Reason: Other, Reported on 03/19/2024 finasteride (PROSCAR) 5 MG tablet 0 04/03/2023 Active Active Problems Problem Noted Date Diagnosed Date Malignant tumor of base of tongue 10/04/2022 Cancer Staging:Clinical stage from 10/11/2022:Stage I(cT1, cN0, cM0, p16+) - Signed by Nadeem Garcia MD on 10/11/2022 Social History Tobacco Use Types Packs/Day Years Used Date Smoking Tobacco: Former Cigarettes Smokeless Tobacco: Never Tobacco Cessation:Counseling Given: Not Answered Alcohol Use Standard Drinks/Week Comments Yes 0 (1 standard drink = 0.6 oz pur e alcohol) occasional Sex and Gender Information Value Date Recorded Sex Assigned at Male 04/04/2022 1:58 PM EDT Gender Identity Male 04/04/2022 1:58 PM EDT Sexual Orientation Not on file Job Start Date Occupation Industry Not on file Not on file Not on file Last Filed Vital Signs Vital Sign Reading Time Taken Comments Blood Pressure 142/70 01/22/2023 11:00 AM EDT Pulse 85 01/22/2023 11:00 AM EDT Temperature 36.1 C (97 F) 10/04/2022 1:24 PM EDT Respiratory Rate 12 08/01/2023 12:51 PM EST Oxygen Saturation 99% 01/22/2023 11:00 AM EDT Inhaled Oxygen Concentration - - Weight 103.4 kg (228 lb) 03/19/2024 1:12 PM EDT Height 162.6 cm (5' 4 ) 03/26/2023 12:57 PM EDT Body Mass Index 39.14 03/26/2023 12:57 PM EDT Plan of Treatment Health Maintenance Due Date Last Done Comments Hepatitis C Screening 1955 COVID-19 Vaccine (#1) 10[birth year]28/1959 Depression Screening 1966 BMI Counseling 1972 Preventative Health Evaluation 1972 Shingrix-Zoster Vaccine (1 of 2) 1973 Colon Cancer Screening (Colonoscopy) 10/28/1999 Fall Risk Assessment 10/28/2019 Influenza Vaccine (Season Ended) 2025 06/20/20 23 DTap / Tdap / Td (2 - Td or Tdap) 04/25/2027 017 RSV Adult > 60+ Yrs or Pregn ant (1 - 1-dose 75+ series) 2029 Pneumococcal Vaccine Completed 06/20/2023 Hepatitis B Vaccines Aged Out No long er eligible based on patient's age to complete this topic RSV Ped < 20 months Aged Out No longe r eligible based on patient's age to complete this topic Care Teams Supervisor Dumping Relationship Specialty Start Date End Date Laurie Guzman PA PCP - General Physician Title Lawyer 03/15/22
--- OUTSIDE RECORDS SUMMARY | 2024-12-30 08:48 | XMS_ITS | Patient Health Record ---
Author Organization [facility] Address [address] [place] [address] Care Team Providers Care Industrial Management Teacher Name Role Phone Laurie Manjarrez PA-C Primary Care Provider Nicole acBrenda Cole Unavailable [phone] Allergies Allergen (clinical drug ingredient) Drug/Non Drug Allergy documented on EMR Reaction Allergy Type Onset Date Status Lisinopril coughing Drug Allergy Active pravastatin Pravastatin Sodium coughing fits Drug Allergy Active Reason For Referral No Information Medications Medication SIG (Take, Route, Frequency, Duration) Notes Start Date End Date Status Citalopram Hydrobromide 10 MG 1 tablet O rally Once a day; Duration: 30 day(s) Active Albuterol prn Active Feldene 20 MG 1 capsule with food Orally Once a day; Duration: 30 day(s) 08/06/2016 Not-Taking Folic Acid Active Atenolol-Chlorthalidone Not-Taking Vitamin B12 Active hydroCHLOROthiazide 12.5 MG 1 capsule in the morning Orally Once a day; Duration: 30 day(s) Not-Taking Culturelle Active Benzonatate 200 MG 1 capsule Orally Three times a day; Duration: 30 day(s) Not-Taking Finasteride 5 MG 1 tablet Orally Once a day Active Prednisone Not-Takin g Atorvastatin Calcium 10 MG 1 tablet Oral ly Once a day Active Atenolol 50 MG 1 tablet Orally Once a day; Duration: 30 day(s) Not-Taking D3 5000 125 MCG (5000 UT) as directed Orally Not-Taking Aspirin 81 MG Orally Active Losartan Potassium 50 MG 1 tablet Orally Once a day; Duration: 30 day(s) Active Alfuzosin HCl Active Social History Tobacco Use: Social History Observation Description Date Details (start date - stop date) Former Smoker NA - NA Tobacco Use/Smoking Question Answer Notes Are you a: former smoker Additional Findings: Tobacco Non-User Ex-cigaret te smoker Alcohol Screen Question Answer Notes Did you have a drink contain ing alcohol in the past year? Yes How often did you have a dri nk containing alcohol in the past year? Monthly or less (1 point) Points 1 Interpretation Negative Tobacco use other than smoking: Question Answer Notes Are you an other tobacco user? No Problems Problem Type SNOMED Code ICD Code Onset Dates Problem Status W/U Status Risk Notes Problem Acquired hammer toe of right foot (88612671862 ) Other hammer toe(s) (acquired), right foot (M20.41) Active confirmed Problem Acquired hammer toe of left foot (33719617587 42669) Other hammer toe(s) (acquired), left foot (M20.42) Active confirmed Problem Non-pressure chronic ulcer of other part of right foot limited to breakdown of skin (L97.511) Active confirmed Problem Non-pressure chronic ulcer of other part of left foot limited to breakdown of skin (L97.521) Active confirmed Problem Non-pressure chronic ulcer of other part of left foot limited to breakdown of skin (L97.521) Active confirmed Problem Skin ulcer of toe of right foot, limited to breakdown of skin (L97.511) Active confirmed Response to treatment Problem Ulcer of toe of left foot (disorder) (52985990329 168515) Skin ulcer of toe of left foot, limited to breakdown of skin (L97.521) Active confirmed Response to treatment Vital Signs Height 5ft6in in 04/16/2024 Weight 225 lbs 04/16/2024 BMI 36.31 kg/m2 04/16/2024 Procedures Procedure Date Ordered Date Performed Result Body Sit e 44138-Spocztpp Plate 04/03/2024 N/A 87672-Kleilohm Plate Each Additional 04/03/2024 N/A 10401- Debride <25 sq cm 04/16/2024 N/A Encounters Encounter Location Date Provider Diagnosis [facility] [address] [address] 04/03/2024 Brenda Black Ingrown nail L60.0 ; Toe pain, left M79.675 and Pain of toe of right foot M79.[address] [facility] [address] 04/16/2024 Brenda Black Skin ulcer of toe of left foot, limited to breakdown of skin L97.521 and Skin ulcer of toe of right foot, limited to breakdown of skin L97.[address] [address] 03/30/2024 Brenda Black Assessments Encounter Date Diagnosis (ICD Code) Assessment Notes Treatment Notes Treatment Clinical Notes Section Notes 04/03/2024 Ingrown nail (ICD-10 - L60.0) 04/03/2024 Toe pain, left (ICD-10 - M79.675) 04/16/2024 Skin ulcer of toe of right foot, limited to breakdown of skin (ICD-10 - L97.511) Response to treatment,Nonap plicable Patient Educated with: WOUND CARE INSTRUCTIONS.p df (WOUND CARE INSTRUCTIONS.p df) 04/16/2024 Skin ulcer of toe of left foot, limited to breakdown of skin (ICD-10 - L97.521) Response to treatment,Nonap plicable Patient Educated with: WOUND CARE INSTRUCTIONS.p df (WOUND CARE INSTRUCTIONS.p df) 04/03/2024 Pain of toe of right foot (ICD-10 - M79.674) Plan Of Treatment Pending Test Test Name Order Date 18823-Uodmkgzr Plate 06/21/2022 33577-Yoqmodtr Plate 04/03/2024 68009-Phesiysh Plate Each Additional 09/2023 10165-Ykovtlej Plate Each Additional 21102- Debride <25 sq cm 06/21/2022 22168- Debride <25 sq cm 07/12/2022 33605- Debride <25 sq cm 04/16/2024 Insurance Providers Payer Name Payer Address Payer Phone Subscriber Number Group Number Insured Name Patient Relationship to Insured Coverage Start Date Coverage End Date Medicare [employer] [address] [place] [address] [id number] Alexander Uriostegui Self - [facility] [address] [place] [address] [phone] [id number] Alexander Uriostegui Self - patient is the insured Medical (General) History Medical History History ICD Code Hepatitis High blood pressure Measles Mumps Chicken pox Back,Hip,and Knee pain covid-19 Diverticulosis Lung disease (ILD) Sciatica Pulmonary fibrosis Surgical History Surgery Date(Month/Year) hernia 2009 meniscus 2020 carpal tunnel surgery, bilateral 2020
--- OUTSIDE RECORDS SUMMARY | 2024-12-30 08:48 | XMS_ITS | Clinical Summary ---
Author Organization [facility] Address [address] [place] [address] Care Team Providers Care Parts Order And Stock Clerk Name Role Phone Unavailable Primary Care Provider Unavailabl e Allergies Active Allergy Reactions Criticality Noted Date Comments Lisinopril Cough 06/02/2024 Medications citalopram (CELEXA) 20 mg tablet Take 1 tablet (20 mg total) by mouth daily. Active finasteride (PROSCAR) 5 mg tablet Take 1 tablet (5 mg total) by mouth daily. Active alfuzosin (UROXATRAL) 10 mg 24 hr extended release tablet Take 1 tablet (10 mg total) by mouth daily. Active atorvastatin (LIPITOR) 10 mg tablet Take 1 tablet (10 mg total) by mouth daily. Active losartan (COZAAR) 25 mg tablet Take 1 tablet (25 mg total) by mouth daily. Active aspirin 81 mg chewable tablet Take 1 tablet (81 mg total) by mouth daily. Active folic acid (FOLVITE) 400 MCG tablet Take 1 tablet (400 mcg total) by mouth daily. Active b complex vitamins (B COMPLEX) tablet Take 1 tablet by mouth daily. Active lactobacillus rhamnosus, GG, (CULTURELLE) 10 billion cell capsule Take 1 capsule by mouth daily. Active Immunizations Immunization Administration Dates Next Due Influenza, high-dose, split virus, trivalent,(65Yr+),injectable, preservative free 05/12/2024 Social History Tobacco Use Types Packs/Day Years Used Date Smoking Tobacco: Never Assessed Sex and Gender Information Value Date Recorded Sex Assigned at Not on file Legal Sex Male 5:19 PM EST Gender Identity Not on file Sexual Orientation Not on file Last Filed Vital Signs Vital Sign Reading Time Taken Comments Blood Pressure - - Pulse - - Temperature - - Respiratory Rate - - Oxygen Saturation - - Inhaled Oxygen Concentration - - Weight 106.4 kg (234 lb 9.6 oz) 06/02/2024 5:35 PM EST Height 162.6 cm (5' 4 ) 06/02/2024 5:35 PM EST Body Mass Index 40.27 06/02/2024 5:35 PM EST Plan of Treatment Health Maintenance Due Date Last Done Comments HIV screening 10/28/1967 Hepatitis C screening 1972 Prediabetes Surveillance 1972 Lipid disorder screening 1994 Colon cancer screening, Colonoscopy 10/28/1999 Diabetes screening 10/28/1999 Shingles vaccine (Shingrix) (1 of 2 - Shingrix (RZV) 2 Dose Standard Series) 2004 RSV Immunization (1 - Risk 60-74 years 1-dose series) 2014 Covid-19 vaccine series ( - season) 2024 Influenza vaccine 03/01/2025 05/12/2024, 06/20/2023 Tetanus adult (Td q 10,TDAP once) 04/25/2027 04/25/2017 Pneumococcal Vaccine (50+ years) Completed 06/20/2023 Meningococcal Vaccine Aged Out No parvin mary eligible based on patient's age to complete this topic Insurance [facility]
== END 2024-12-30 09:07 | disposition home or self-care (01) ==
LOC: HO.HOS 08:42
PROVIDERS: PCP Physician Assistant Medical; Visit Provider Orthopaedic Surgery
DX: M17.0 Bilateral primary osteoarthritis of knee (principal)
CPT/HCPCS: 99213; G2211

== ENCOUNTER → 2024-12-30 08:45 | Outpatient (BNV) | payer MEDICARE, SELFPAY | PROVIDERS: Visit Provider Radiology Diagnostic Radiology | DX: M17.0 Bilateral primary osteoarthritis of knee (principal) | CPT/HCPCS: 73562 ==

== ENCOUNTER 2025-01-26 08:21 | Outpatient (AMB) | payer MEDICARE, SELFPAY ==
[2025-01-26 08:23] VITALS: BMI 37.4
--- NOTE | 2025-01-26 08:23 | MHC.OFFVIS ---
Vital Signs 01/26/25 08:23 Height 5 ft 6 in Weight 232 lb BMI 37.4 Intake Visit Reasons: Inj-Bilateral Knee Durolane Inj Intake Note: Alexander is a 69 year old male who presents today for bilateral knee Durolane injections. The patient describes his pains as sharp in nature. He has failed the last 3 months of conservative treatment which has included Tylenol, anti-inflammatory medicines, physical therapy exercises and a home exercise program. He wishes to hold off on surgery for as long as possible. Allergies lisinopril Allergy (Unknown, Verified 01/26/25 08:28) Unknown Medication List - Last Reconciled 01/26/25 by Hebert Heredia MD alfuzosin ER 10 mg PO DAILY aspirin 81 mg PO DAILY atorvastatin 10 mg PO DAILY budesonide 0.5 mg (2 mL) inhalation DAILY 30 days citalopram 20 mg PO DAILY finasteride 5 mg PO DAILY fluticasone furoate-vilanterol 100-25 mcg/dose (Breo Ellipta) 1 inh inhalation DAILY 30 days fluticasone propion-salmeterol 250-50 mcg/dose (Wixela Inhub) 1 inh inhalation Q12H 30 days gabapentin 200 mg PO BID levalbuterol HCl 1.25 mg (3 mL) inhalation BID losartan 25 mg PO DAILY Oxygen Home Use As directed prednisone PO daily; Take 2 tabs daily x 5 days, then 1 tablet daily x 5 days 10 days ProAir HFA 90 mcg/actuation (albuterol sulfate) 2 puffs inhalation Q4H PRN NS PFSH Medical History COPD (chronic obstructive pulmonary disease) Head and neck cancer ILD (interstitial lung disease) Pneumonitis Pulmonary nodule Lower extremity edema Dyspnea Chronic bronchitis Cough Chronic restrictive lung disease COVID-19 Pulmonary fibrosis Surgical History History of bilateral carpal tunnel release Hx of umbilical hernia repair Social History Household Members: Spouse Household Members Other:: Kristen - Patient Tobacco Use Status: Never used Tobacco Second Hand Smoke Exposure: No Current occupational status: retired Current occupation: Right hand dominant Physical Exam Vital Signs: BMI result Body Mass Index 37.4 Const Other: Well-nourished well-developed very friendly male awake alert and oriented x3 in no acute distress Extrem Other: Bilateral lower extremity examination shows good capillary refill, no skin lesions noted, normal sensation light touch Bilateral knee examination shows minimal effusions, palpable crepitus with range of motion, pain with range of motion, no instability Office Procedures AMB Joint Injection/Aspiration Joint Injection/Aspiration Primary Site: right knee Prep: site was prepped using aseptic technique Injected: 60 mg of (Durolane viscosupplementation) and 1% plain lidocaine Procedure: The patient tolerated the procedure well Coding - Large joint Procedure code (CPT) selection complete AMB Joint Injection/Aspiration Joint Injection/Aspiration Primary Site: left knee Prep: site was prepped using aseptic technique Injected: 60 mg of (Durolane viscosupplementation) and 1% plain lidocaine Procedure: The patient tolerated the procedure well Coding - Large joint Procedure code (CPT) selection complete Results Reviewed Results Reviewed: X-rays of the patient's bilateral knees taken previously show joint space narrowing, subchondral sclerosis, no acute bony abnormalities Assessment & Plan Assessment & Plan (1) Osteoarthritis of left knee: Code(s): M17.12 - Unilateral primary osteoarthritis, left knee Category: Medical (2) Osteoarthritis of right knee: Code(s): M17.11 - Unilateral primary osteoarthritis, right knee Category: Medical Plan Mr. Uriostegui presents with bilateral knee pains due to osteoarthritis. The risks and benefits of bilateral knee Durolane viscosupplementation injections were discussed at length with the patient. The patient wished to proceed. He tolerated the injections well. He will continue with his home exercise program. He will contact me prior to his follow-up appointment in 3 months should any questions or concerns arise. Feel free to call me at any time should questions regarding his orthopedic management arise. I spent 22 minutes in reviewing the patient's records and imaging studies, seeing the patient and documenting in the medical record. Orders: Orders AMB Joint Injection/Aspiration Today M17.11 - Unilateral primary osteoarthritis, right knee AMB Joint Injection/Aspiration Today M17.12 - Unilateral primary osteoarthritis, left knee Coding Level of Care Code Est Pt Level 3 (26079) Complex EM visit Add On G2211 Diagnoses Osteoarthritis of left knee M17.12 Osteoarthritis of right knee M17.11 CPT Codes Coding - Large joint: 72977 - Large joint ([id number]) Coding - Large joint: - Large joint ([id number])
--- OUTSIDE RECORDS SUMMARY | 2025-01-26 08:32 | XMS_ITS | Encounter Summary ---
Author Organization [facility] Address [address] [place] [address] Care Team Providers Care Hospital Chief Executive Officer Name Role Phone Laurie Guzman PA-C Primary Care Provi walter Bernie Christianson MD Unavailable [phone] Soham Pearce MD Unavailable [phone] Noe Huffman MD Unavailable [phone] Nadeem Garcia ND Unavailable [phone] Dennis Stephens MD Unavailable Unavailable Terrell Morgan MD Unavailable [phone] Encounter Details Date Type Department Care Team (Late st Contact Info) Description 10/10/2023 Scanned Document [facility] ENDOCRINOLOGY SCAN Endocrinology, Scan Social [...] Description 05/13/2025 10:30 AM EST Office Visit [address] [place] [phone] Laurie Guzman PA-C [address] [place] [address] [place] [address] documented as of this encounter Visit Diagnoses Not on filedocumented in this encounter Care Teams Hospital Chief Executive Officer Relationship Specialty Start Date End Date Francisco JavierRenoLaurie Araujo PA-C [address] [place] [address] PCP - General Internal Medicine 07/23/23 Bernie Christianson MD [address] [place] [address] Referring Provider 05/12/24 Soham Pearce MD [address] [place] [address] [address] [place] [address] Physician Otolaryngology 05/12/24 Noe Huffman MD [address] [place] [address] Medicine Hospitalist 05/12/24 Nadeem Garcia ND [address] [place] [address] Referring Provider 05/12/24 Dennis Stephens MD [address] [place] [address] Referring Provider Urology 05/12/24 Terrell Morgan MD [address] [place] [address] Ophthalmology 05/12/24 Liz Bowser Physician Podiatry 04/27/24 documented as of this encounter
--- OUTSIDE RECORDS SUMMARY | 2025-01-26 08:32 | XMS_ITS | Clinical Summary ---
Author Organization [facility] Address [address] [place] [address] Care Team Providers Care Weir Fisherman Name Role Phone Unavailable Primary Care Provider [...] age to complete this topic Insurance MEDICARE [facility] MEDICARE [facility] MEDICARE [facility]
--- OUTSIDE RECORDS SUMMARY | 2025-01-26 08:32 | XMS_ITS | Patient Health Record ---
Author Organization [facility] Address [address] [place] [address] Care Team Providers Care Sports Information Director Name Role Phone Laurie Manjarrez PA-C Primary Care Provider Nicole acBrenda Cole Unavailable [phone] Allergies Allergen (clinical drug ingredient) Drug/Non Drug Allergy documented on EMR Reaction Allergy Type Onset Date Status lisinopril Lisinopril coughing Drug Allergy Activ e pravastatin Pravastatin Sodium coughing fits Drug Allergy [...] Problem Acquired hammer toe of right foot (46576452424 58809) Other hammer toe(s) (acquired), right foot (M20.41) Active confirmed Problem Acquired hammer toe of left foot (51605154525 39219) Other hammer toe(s) (acquired), left foot (M20.42) [...] Ulcer of toe of right foot (disorder) (68928148386 507352) Skin ulcer of toe of right foot, limited to breakdown of skin (L97.511) Active confirmed Response to treatment Problem Ulcer of toe of left foot (disorder) (22303723934 035135) Skin ulcer of toe of left foot, limited to breakdown of skin (L97.521) Active confirmed Response to treatment Vital Signs Height 5ft6in in 04/16/2024 Weight 225 lbs 04/16/2024 BMI 36.31 kg/m2 04/16/2024 Procedures Procedure Date Ordered Date Performed Result Body Sit e 41828-Yqcvwsxp Plate 04/03/2024 N/A 02026-Bbzermen Plate Each Additional 04/03/2024 N/A 12450- Debride <25 sq cm 04/16/2024 N/A Encounters Encounter Location Date Provider Diagnosis [facility] [address] 04/03/2024 Brenda Black Ingrown nail L60.0 ; Toe pain, left M79.675 and Pain of toe of right foot M79.674 [facility] [address] [address] 04/16/2024 Brenda Black Skin ulcer of toe of left foot, limited to breakdown of skin L97.521 and Skin ulcer of toe of right foot, limited to breakdown of skin L97.[address] [facility] [address] 03/30/2024 Brenda Black Assessments Encounter Date Diagnosis [...] Treatment Pending Test Test Name Order Date 13963-Wkduenjl Plate 06/21/2022 77644-Cenwlnle Plate 04/03/2024 56535-Bazecopq Plate Each Additional 09/2023 58511-Ltgmztej Plate Each Additional 43440- Debride <25 sq cm 06/21/2022 92744- Debride <25 sq cm 07/12/2022 91297- Debride <25 sq cm 04/16/2024 Insurance Providers Payer Name Payer Address Payer Phone Subscriber Number Group Number Insured Name Patient Relationship to Insured Coverage Start Date Coverage End Date Medicare National Govt Svcs Inc [address] [place] [address] [id number] Alexander Uriostegui Self - patient is the insured [employer] [facility] [address] [place] [address] [phone] [id number] Alexander Uriostegui Self - patient is the insured Medical (General) History Medical History History ICD Code Hepatitis High blood pressure Measles Mumps Chicken pox Back,Hip,and Knee pain covid-19 Diverticulosis Lung disease (ILD) Sciatica Pulmonary fibrosis Surgical History Surgery Date(Month/Year) hernia 2009 meniscus 2020 carpal tunnel surgery, bilateral 2020
--- OUTSIDE RECORDS SUMMARY | 2025-01-26 08:32 | XMS_ITS | Continuity of Care Document ---
Author Organization [facility] Address [address] [facility] [address] [place] [address] Phone [phone] Care Team Providers Care Trust Administrative Assistant Name Role Phone Laurie Guzman Care Team Information Re ceiver [phone] Problems Active Problems Provider Date Essential hypertension [...] Medications SIG Qnty Indications Ordering Provider Date Snxixw49zc Tablets one tab by mouth as needed 5tabs Kris Stoner M.D. 02/27/2023 Atorvastatin Hfpkfnj52jb Tablets Take 1 Tablet By Mouth Everyday AT Bedtime Laurie Guzman PPaola Alfuzosin HCL ER10mg Tablets ER 24HR Take 1 Tablet By Mouth Every Day Unknown Citalopram Mheuqgijspet13li Tablets Take 2 Tablet By Mouth Every Day Laurie Guzman P.A. Albuterol Sulfate FGD509(90Base) mcg/Act Aerosol Inhale 2 puff Every 4 Hours as Needed For Shortness Of Breath Or Wheezing Noe Huffman Pkebqwdkai886kj Capsules one prn Unknown Wpuvzujjcft3xu Tablets 1 by mouth every day Unknown Losartan Lurluxduq20rm Tablets Take 1 Tablet By Mouth Every [...] Inhouse Glucose Fingerstick 139 Free Testosterone 05/30/2023 [facility] Testosterone, Total, LC/MS 395.3 1 Percent Free Testosterone 4.79 High 2 Free Testosterone, Equilibrium 18.93 3 Glucose Fingerstick 02/27/2023 Inhouse Glucose Fingerstick 137 Testosterone 12/27/2022 [facility] Testosterone 242 ng/dL Low (280-800 ) TSH With Reflex To FT4 10/02/2022 [facility] TSH With Reflex To FT4 1.86 uIU/mL (0.4-4.2 ) Bioavailable Testosterone 10/02/2022 [facility] Testosterone, Total, LC/MS 178.9 Low 4 Testosterone,Fr e e Weakly Bound 74.4 5 Testosterone,Fr e e Weakly % 41.6 6 Prolactin With Reflex To Monomeric 10/02/2022 [facility] Prolactin 13.3 NG/ML (4.0-15. 2) Prolactin, Monomeric 12.9 ng/dL Prolactin, Percent Monomeric 97 % 7 LH 10/02/2022 [facility] LH 5.2 MIU/ML (1.5-12. 4) 8 FSH 10/02/2022 [facility] FSH 4.3 MIU/ML (1.5-12. 4) 9 Free Testosterone Female And Juvenile 10/02/2022 [facility] Testosterone, Serum Total Pending SHBG Pending nmol/L (19-76) Free Testosterone, Estimated Pending ng/dL (3.7-14. 7) 39284-7 Test Cancelled, <SEE NOTE> 10 Testosterone,Oscar e & Total (Males > 15Yr) 10/02/2022 [facility] Testosterone 215 ng/dL Low (280-800 ) SHBG 14.3 nmol/L Low (19-76) Free Testosterone, Estimated 5.78 ng/dL (3.7-14. 7) Glucose Fingerstick 10/02/2022 Inhouse Glucose Fingerstick 199 1 Reference range: 264 .0 to 916.0 Unit: ng/dL (NOTE) This [facility] LC/MS-MS method is currently certified by the CDC Hormone Standardization Program (HoSt). Adult male reference interval is based on a population of healthy nonobese males (BMI <30) between 19 and 39 years old. Petty, et.al. EM 2017,102;6041-8964. PMID: 62597192. This test was developed and its performance characteristics determined by [facility]. It has not been cleared or approved by the Food and Drug Administration. 2 Reference range: 1.5 0 to 4.20 Unit: % 3 Reference range: 5.0 0 to 21.00 Unit: ng/dL Test performed at [address] [address] 4 Reference range: 264 .0 to 916.0 Unit: ng/dL (NOTE) This [facility] LC/MS-MS method is currently certified by the CDC Hormone Standardization Program (HoSt). Adult male reference interval is based on a population of healthy nonobese males (BMI <30) between 19 and 39 years old. Petty, et.al. EM 2017,102;0702-0145. PMID: 97930894. This test was developed and its performance characteristics determined by [facility]. It has not been cleared or approved by the Food and Drug Administration. 5 Reference range: 40. 0 to 250.0 Unit: ng/dL 6 Reference range: 9.0 to 46.0 Unit: % (NOTE) This test was developed and its performance characteristics determined by [facility]. It has not been cleared or approved by the Food and Drug Administration. Test performed at [address] [address] 7 SAMPLE CONTAINS MOST LY MONOMERIC PROLACTIN [...]
--- OUTSIDE RECORDS SUMMARY | 2025-01-26 08:32 | XMS_ITS | Encounter Summary ---
Author Organization [facility] Address [address] [place] [address] Care Team Providers Care Mold Engraver Name Role Phone Soham Pearce MD Primary Care Provider [phone] Encounter Details Date Type Department Care Team (Late st Contact Info) Description 09/27/2022 Orders Only [facility] [address] [place], [place] [id number] Soham Pearce MD [address] [facility] [address] [place], [place] [id number] Social History Tobacco Use Types Packs/Day Years [...] 17Sep2022 01:45PM Soham Pearce TESTING PERFORMED AT: [address] [address], PHONE [phone], FAX [phone] Test Name Result Flag Reference CT Neck [...] your patient to us, Po Marie MD [phone] (Electronically Signed - 09/26/2022 12:48) Copy: [facility] [address] [facility] [address] [place] [address] documented in this encounter Plan of Treatment Not on file documented as of this encounter Visit Diagnoses Not on filedocumented in this encounter Care Teams Mold Engraver Relationship Specialty Start Date End Date Soham Pearce MD [address] [facility] [address] [place] [address] PCP - General 02/04/23 documented as of this encounter
--- OUTSIDE RECORDS SUMMARY | 2025-01-26 08:32 | XMS_ITS | Clinical Summary ---
Author Organization [facility] Address [address] [place] [address] Care Team Providers Care Auto Parker Name Role Phone Laurie Guzman Primary Care Provider [phone] Surgical History Surgery Date Site/Laterality Comments KNEE SURGERY Right PROCEDURE:KNEE SURGERY COLONOSCOPY PROCEDURE:COLONOSCOPY HAND SURGERY Bilateral PROCEDURE:HAND SURGERY HERNIA REPAIR PROCEDURE:HERNIA REPAIR;COMMENT:umbilical LARYNGOSCOPY 09/19/2022 Bilateral PROCEDURE:LARYNGOSCOPY;COMMENT:Procedure: DIRECT LARYNGOSCOPY WITH BIOPSY; Surgeon: Soham Pearce MD; Location: [facility] AMBULATORY SURGERY; Service: ENT; Laterality: Bilateral; Medical [...] Panel) 06/13/2022 Colorectal Cancer Screening: Colonoscopy 06/13/2022 Falls Risk Assessment 06/13/2022 Hepatitis C Screening 06/13/2022 Social Influencers of Health Screening 06/13/2022 Depression Screening 07/01/2024 Influenza Vaccine (#1) 2025 RSV Immunization Adult Patie nts (1 [...] age to complete this topic Care Teams Auto Parker Relationship Specialty Start Date End Date Laurie Guzman PA [address] [facility] [address] [place] [phone] PCP - General Physician Animal Ecologist 03/15/22
--- OUTSIDE RECORDS SUMMARY | 2025-01-26 08:32 | XMS_ITS | Data Portability ---
Author Organization [place] [facility] Esa Morin [place] Address [address] [place] [address] Care Team Providers Care Shortage Worker Name Role Phone RYDER SOTO Primary Care Provider Assessment Encounter Date Assessment Date Assessment LastModified by Organization Details LastModified Time 11/19/2022 11/19/2022 Mr. Uriostegui has a grade 3 AC separation after [...] he could obtain was given to him. [email or web address] Not available 11/19/2022 16:01:30 11/20/2022 11/20/2022 Symptoms [...] address both areas on his next visit. [email or web address] Not available 11/20/2022 12:07:28 12/03/2022 12/03/2022 Alexander has nondisplaced greater tuberosity fracture which is [...] on his shoulder. Follow-up in 1 month. [email or web address] Not available 12/03/2022 12:10:52 01/22/2023 01/22/2023 Patient's [...] assess his progress, sooner for any complications. [email or web address] Not available 01/22/2023 10:36:14 02/14/2023 02/14/2023 [facility] Previous Visit (if applicable) 01/22/2023: [...] : The patient presents to [facility] today for repeat evaluation of his right [...] treatment plan. Nino Hernandez PA-C [facility] [email or web address] Not available 02/14/2023 09:38:47 Plan of Treatment [...] shoulder, 2 or more view 2022 023 9 [facility], [address], [place], [address], 3 13:28:35 XR, shoulder, 2 or more view 2022 023 [email or web address] 21 [facility], [address], [place], [address], 3 11:36:22 XR, shoulder, 2 or more view 2022 023 [email or web address] 21 [facility], [address], [place], [address], 3 13:41:28 XR, lumbosacral spine, 2 or 3 view 2022 023 elle 21 [facility], [address], [place], [address], 3 09:14:19 XR, shoulder, 2 or more view 2022 023 [email or web address], [address], [place], [address], 3 16:50:49 Medication Orders None recorded. Patient [...] Name and Address Organization Details Recorded Time Impingement syndrome of right shoulder region 6378457031174 02 Active 2022 Hebert Heredia MD [address] [facility],[address], [place], [address] , [place] [facility], P 3 11:03:17 Closed traumatic dislocation acromioclav icular joint 765725346 Active [address], [place], [address], [place] [facility], [facility] 3 15:41:19 Closed fracture proximal humerus, greater tuberosity 852018741 Active [address], [place], [address], [place] [facility] 3 16:01:59 Strain of hamstring tendon 278313937 Active [address], [place], [address], [place] [facility], [facility] 3 12:04:20 Pain in lumbar spine 062273316 Active [address], [place], [address], [place] [facility], [facility] 3 12:07:29 Closed traumatic dislocation acromioclav icular joint 265625789 Active [address], [place], [address], [place] [facility] 3 10:37:07 Problem Notes None recorded. Procedures Surgical History Date Name Laterality Status Provider Name and Address Organization Details Recorded Time operative procedure on knee completed Nuzhat Mcgee [place] [facility], [facility] 09/12/2022 10:42:42 Imaging Results None recorded. [...] Updated DateTime 11/19/2022 167.64 cm 43.6 kg/m2 910329.94 g Jessica Jauregui [facility], [facility] 11/19/2022 14:42:42 Date Recorded Body height Body mass index (BMI) Body weight Provider Name and Address Organization Details Last Updated DateTime 11/20/2022 167.64 cm 43.6 kg/m2 447365.94 g Jessica Jauregui [facility] 11/20/2022 11:20:05 Date Recorded Body height Body mass index (BMI) Body weight Provider Name and Address Organization Details Last Updated DateTime 12/03/2022 167.64 cm 43.6 kg/m2 825151.94 g Jessica Jauregui [facility] 12/03/2022 11:51:56 Date Recorded Body height Body mass index (BMI) Body weight Provider Name and Address Organization Details Last Updated DateTime 01/22/2023 167.64 cm 43.6 kg/m2 921644.94 g Tobinridge Juventino [facility], [facility] 01/22/2023 10:03:10 Date Recorded Body height Body mass index (BMI) Body weight Provider Name and Address Organization Details Last Updated DateTime 02/14/2023 167.64 cm 43.6 kg/m2 961272.94 g Tobinridge Juventino [facility] 02/14/2023 08:59:16 Social History Question Answer Notes LastModified by Organizat ion Details LastModified Time Tobacco Smoking Status Former Smoker Jessica boyd [facility] 11/19/2022 14:45:22 When Did You Quit Smoking? 16+yearssinc elastcigaret te [email or web address] Information not available 11/19/2022 Sex: Unknown Functional Status Question Answer Note LastModified by Organizat ion Details LastModified Time Do you use any illicit or recreational drugs? No Information not available 11/19/2022 Do you or have you ever used any other forms of tobacco or nicotine? No [email or web address] Information not available 11/19/2022 What is your level of alcohol consumption? Moderate [email or web address] Information not available 11/19/2022 Mental Status None [...] Code Diagnosis Note 515 MD MADY Irby [facility] [address] [facility] [address] [place] [address] 09/12/2022 10:26:23 09/12/2022 11:01:35 Impingement syndrome of right shoulder region 9172969400 17196 M75.41 08091 NADEEM DICKSON PA-C [place] [address] 11/19/2022 14:33:34 11/19/2022 16:00:44 Impingement syndrome of right shoulder region 6514000239 06925 M75.41 Closed tra umatic dislocation acromioclavicular joint 600124196 S43.121A Closed fra cture proximal humerus, greater tuberosity 395044295 S42.254A 33538 [address] [address] 11/20/2022 10:59:36 11/20/2022 12:11:44 Pain in lumbar spine 838567728 M54.51 Strain of hamstring tendon 885013901 S76.312A 22889 NADEEM DICKSON PA-C [address] [address] 12/03/2022 11:38:19 12/03/2022 12:22:11 Impingement syndrome of right shoulder region 2265725606 87542 M75.41 Strain of hamstring tendon 310123495 S76.312A Closed fra cture proximal humerus, greater tuberosity 023376368 S42.254A 14608 NADEEM DICKSON PA-C [facility] [address] [facility] [address] [place] [address] 01/22/2023 09:36:57 01/22/2023 10:31:47 Closed fracture proximal humerus, greater tuberosity 092327711 S42.254A Closed tra umatic dislocation acromioclavicular joint 007915378 S43.121A Grade 2 28588 NINO HERNANDEZ PA-C [facility] [address] [address] 02/14/2023 08:54:55 02/14/2023 09:33:42 Closed fracture proximal humerus, greater tuberosity 866510081 S42.254A Health Concerns Section Related Observation LastModified by Organization Detai ls LastModified Time None Recorded Concern Status LastModified by Organization Details LastModified Time None Recorded Advance Directives Directive None Recorded Payers Insurance Date Sequence Insurance Name Policy Number Policy Kelley Covered Member ID Kelley Member ID Guarantor Name 09/08/2022 1 [place] [employer] Alexander Uriostegui [id number] Alexander Uriostegui 10/17/2022 2 [place] [id number] Alexander Uriostegui [id number] Alexander Uriostegui
--- OUTSIDE RECORDS SUMMARY | 2025-01-26 08:32 | XMS_ITS | Clinical Summary ---
Author Organization [facility] Address [address] [place] [address] Phone Care Team Providers Care Nascar Racer Name Role Phone Bear Parsons MD Primary Care Provider [phone] Social History Tobacco Use Types Packs/Day Years Used Date Smoking Tobacco: Never Assessed Education Answer Date Recorded Are you interested in more education? Not on marilin e 10/26/2022 Are you concerned about learning? Not on file 10/26/2022 No 10/26/2022 No 10/26/2022 Digital Access Answer Date Recorded No 11/26/2022 No 11/26/2022 No 11/26/2022 Reliable internet access at home? Not on file 11/26/2022 Device with a working camera? Not on file Sex and Gender Information Value Date Recorded Sex Assigned at Not on file Legal Sex Male 10:35 PM EDT Gender Identity Not on file Sexual Orientation Not on file Plan of Treatment Not on file Medical Devices Not on file Care Teams Nascar Racer Relationship Specialty Start Date End Date Bear Parsons MD [address] [address] PCP - General Internal Medicine 04/01/19 Additional Source Comments The information contained in this document represents components of the legal health record. It is not the complete legal health record.[facility]
--- OUTSIDE RECORDS SUMMARY | 2025-01-26 08:32 | XMS_ITS | Clinical Summary ---
Author Organization [facility] Address [address] [place] [address] Care Team Providers Care Blueprinting And Photocopy Supervisor Name Role Phone Laurie Guzman Primary Care Provider [phone] Allergies Active Allergy Reactions Criticality Noted Date [...] 10/28/1999 Fall Risk Assessment 10/28/2019 Influenza Vaccine (#1) 2025 06/20/2023 DTap / Tdap / Td (2 - [...] age to complete this topic Care Teams Blueprinting And Photocopy Supervisor Relationship Specialty Start Date End Date Laurie Guzman PA PCP - General Physician Facilities Custodian 03/15/22
== END 2025-01-26 08:48 | disposition home or self-care (01) ==
LOC: HO.HOS 08:22
PROVIDERS: Visit Provider Orthopaedic Surgery
DX: M17.0 Bilateral primary osteoarthritis of knee (principal)
CPT/HCPCS: 20610

== ENCOUNTER → 2025-01-26 08:21 | Outpatient (BNVA) | payer MEDICARE, SELFPAY | PROVIDERS: Visit Provider Orthopaedic Surgery | DX: M17.0 Bilateral primary osteoarthritis of knee (principal) | CPT/HCPCS: 20610; J2003; J7318 ==

== ENCOUNTER 2025-02-11 10:14 | Outpatient (AMB) | payer MEDICARE, SELFPAY ==
--- NOTE | 2025-02-11 10:17 | A.OFFVIS_ITS ---
Vital Signs 02/11/25 10:18 Height 5 ft 6 in Weight 233 lb 11.04 oz BMI 37.7 BP 132/68 Blood Pressure Location Lt brachial Position Sitting Pulse 72 Pulse Source Pulse Oximeter Pulse Oximetry (%) 97 Oxygen Delivery Method Room Air Intake Visit Reasons: Chronic Brochitis Bundle Sorter Required: No Accompanied by: Self / Same As Patient Allergies lisinopril Allergy (Unknown, Verified 02/11/25 10:21) Unknown HPI Comments Details: The patient is a 69-year-old gentleman who apparently was in her usual state health until back in May when he started developing respiratory complaints. He was diagnosed with COVID-19. He developed severe respiratory failure required ICU level of care. The patient did have bilateral COVID pneumonia. He was subsequently intubated and was kept in the ICU. Ultimately able to get liberated from the ventilator and placed on oxygen then the patient was sent to rehab where he was able to wean off oxygen. Patient overall is doing a lot better. He still working on his strength. He still has dyspnea on exertion moderate severity specially will going up a hill or flight of stairs. He had been working with physical therapy both for his weakness and also because of a sciatica pain. We did review his imaging studies from [facility] demonstrating bilateral airspace disease and likely some degree of scarring building up at the bases. On examination he also has some crackles at the bases suggesting that he does have some the pulmonary fibrosis. The patient did have a walking oximetry in the office he was able to maintain his pulse ox above 90%. The patient does not qualify for oxygen with activity. I will be testing him overnight to assess his oxygen requirements at nighttime while sleeping. The patient will undergo pulmonary function studies and will be appropriate candidate for pulmonary rehab to continue to treat him for his COVID-19. 05/04/2022 the patient is here for a pulmonary follow-up visit. Patient continues to have some dyspnea on exertion. [id number] severity. Not any better after using the Trelegy inhaler. Denies any significant chest pains or wheezing. Does have intermittent coughing. He did have a repeat CT scan in March 2022 that were personally reviewed in the office. He appears to have areas of ground-glass opacities bilaterally without any significant fibrosis. In addition to this he does have a new 6 x 8 mm pulmonary nodule. Therefore based on the fact that he has significant symptoms along with the significant findings on the CT scan will go ahead and place him on some prednisone to see if we can relieve some of the information the patient is going to hold off on the Trelegy. Will plan to repeat the CT scan in 3 months follow-up with the pulmonary nodule finding. 07/31/2022 the patient is here for a pulmonary follow-up visit. He still complains of dyspnea on exertion. He has not been very active lately. He has not been exercising or rehabilitating. He did complete the prednisone. We did review his previous CT scan demonstrating the ground-glass opacities and pulmonary nodules. His most recent CT scan demonstrated interval improvement of the ground-glass opacities although now he does have reticular changes consistent with the evolution of the pneumonitis now evolving into some scarring. Will have to see if this scarring continues to progress. If it does will consider antifibrotic agents. The pulmonary nodules appear to be stable which is reassuring. The patient also needs to go back to pulmonary rehabilitation as well. Will plan to follow-up with PFTs in the next 3-4 months. If we see any progression of his restrictive lung disease then will consider antifibrotic agents. 12/24/2022 the patient is here for a pulmonary follow-up visit. Since we last spoke he was diagnosed with head and neck cancer and just completed radiation therapy. He has significant dysphagia. He had to go to the ER because of significant dehydration. He was found to have significant hypokalemia and was given multiple infusions of IV potassium. He still has a hard time with swallow. He did follow-up with ENT today. He was started on antibiotics for what appears to be an abscess in his posterior pharynx or larynx. The patient also was given lighted cane rinses. We did talk about other alternatives including chlorhexidine mouthwash and prednisone. The patient is not better this should be contemplated with his ENT doctor. In meantime the patient has not had blood work since the will go ahead and give him additional blood work that he can do specially after starting antibiotics if he is not taking anything by mouth. He does have a follow-up with his primary care doctor next week as well. From a respiratory status the patient has not been using any of his nebulized treatments at this time. Clinically from a respiratory status he is doing okay. 04/29/2023 the patient is here for pulmonary follow-up visit. Overall the patient has been doing well. Completed radiation and is dysphagia is improved. He still has some taste changes. Although he has been able to to take in by mouth. The electrolyte issues have improved. The patient did have a PET scan demonstrating no evidence of any active cancer. Although it did show diverticulitis. He did develop abdominal pain went to [place] where he was again confirmed to have diverticulitis and treated with antibiotics. He did go again for a 2nd time with diverticulitis and now is on antibiotics. Does he was discharged over the weekend. He feels better overall. The patient was not offer surgery. He has continue the antibiotics and monitoring his oral intake. His respiratory status is stable. I will review the imaging studies to assess his interstitial lung disease. He does have the oxygen at nighttime that uses. I did encourage him to use it every night. Will do an overnight oximetry on room air in 3 months to see if he still needs it. He does have a history sleep apnea though so at some point if she still having symptoms he should get a potential sleep study to assess him for obstructive sleep apnea and need for CPAP therapy. 10/21/2023 the patient is here for pulmonary follow-up visit. Last several weeks the patient became sick with respiratory illness. He was seen by primary care doctor. Initially placed on antibiotics with only some improvement. Then he was started on some prednisone and his cough significantly improved. Now is completing a course of doxycycline. His all completed the prednisone. We did review his last CT scan back in July 2022 demonstrating pulmonary nodules and interstitial lung disease. The patient will require repeat CT scan this time. In meantime he has been using oxygen at nighttime at 2 L. the oxygen therapy has been affecting beneficial. We did also do an overnight oximetry the patient still qualify for oxygen. Therefore she continue the oxygen at this time. He does have an elevated [place] score with daytime drowsiness 04/23. The patient will benefit from an in-lab sleep study. However the patient is reluctant at this time since he has had difficulty with CPAP in the past. He will consider it at this time. 10/31/2023 the patient is here for sick visit. He has been having hard time with his breathing. He was evaluated back late September and at that point was having worsening respiratory symptoms he was prescribed doxycycline and also prednisone. However, the patient is no better. Now he is more congested. Moderate severity. The phlegm is greenish in color. In the office with significant wheezing we did provide him with 2 DuoNeb treatments in the he did improve. Therefore we held the Solu-Medrol. Still he is going to require additional prednisone and also will require nebulizer treatments 3 to 4 times a day. Will go ahead and place him Augmentin to treat him further for a lower respiratory bacterial infection. This is likely a postviral bacterial infection since he was sick several weeks ago. 06/09/2024 the patient is here for pulmonary follow-up visit. Overall he is doing well. He is back to his baseline. His of nebulized therapy. The patient does have some dyspnea on exertion. Likely multifactorial. He has gained some weight. He did undergo a CT scan of the chest sometime in 04/19/2024 which I personally reviewed and compared to his previous CT scan. Unfortunately has not been officially read. I do not see any worsening disease if anything the left lower lobe nodular density seems to be little bit less pronounced. In addition to that the patient does have some hazy interstitial disease likely some degree of pulmonary fibrosis and some air trapping. He does use her rescue inhaler. I do believe that a combination inhaler like Wixela will help open up the airways and improve his gas exchange. His PFTs back demonstrated a significant restrictive lung disease due to likely his interstitial lung disease. At this point seems to be doing a little better so therefore will plan to have him follow-up in 8 months with PFTs. For now he is going to work on weight management and exercise. 02/11/2025 the patient is here for pulmonary follow-up visit. Overall he is doing well. He continues uses respiratory therapy as prescribed. He is following closely with ENT after completing his therapy for his head and neck cancer. Seems to be in remission. He will be monitor closely for now. In the meantime the patient has been using the oxygen at nighttime. The oxygen therapy has been affecting beneficial. He has been working on weight loss. He is making lifestyle changes. Although he has knees have been bothering him so he has not been as active in his gained a few lb. But overall he is doing well. Requesting a repeat chest x-ray. She can do that in his own time closer to home. Otherwise will follow-up in a year's time. [facility] Medical History COPD (chronic obstructive pulmonary disease) Head and neck cancer ILD (interstitial lung disease) Pneumonitis Pulmonary nodule Lower extremity edema Dyspnea Chronic bronchitis Cough Chronic restrictive lung disease COVID-19 Pulmonary fibrosis Surgical History History of bilateral carpal tunnel release Hx of umbilical hernia repair Social History Household Members: Spouse Household Members Other:: Kristen - Patient Tobacco Use Status: Never used Tobacco Second Hand Smoke Exposure: No Current occupational status: retired Current occupation: Right hand dominant Review of Systems Const Reports daytime sleepiness, Reports fatigue and Reports weight loss Eyes Denies change in vision ENT Denies dysphagia, Denies mouth lesions, Denies odynophagia and Denies sore throat Card Denies chest pain and Reports dyspnea on exertion Resp Reports change in phlegm color, Reports chest congestion, Reports cough, Denies hemoptysis, Reports excessive phlegm production, Reports dyspnea on exertion and Reports wheezing GI Reports as per HPI, Reports abdominal pain, Denies dysphagia and Denies odynophagia Musc Reports no additional complaints Skin/Breast Denies rash Endo Reports fatigue Aller/Immun Reports wheezing Physical Exam Vital Signs: Last Vital Signs Pulse 72 02/11/25 10:18 BP 132/68 02/11/25 10:18 Pulse Ox 97 02/11/25 10:18 Oxygen Delivery Method Room Air 02/11/25 10:18 BMI result Body Mass Index 37.7 Const General: alert Neck Neck: Yes normal visual inspection, Yes full ROM and Yes no lymphadenopathy Chest Chest palpation & inspection: normal inspection of the chest Resp Effort & Inspection: normal respiratory effort and prolonged expiratory phase Auscultation: no rhonchi, no wheezes and diminished lung sounds Cardio Rate: regular rate Rhythm: regular rhythm Heart sounds: S1 normal heart sound present and S2 normal heart sound present GI Palpation (GI): Soft to palpation and nontender Auscultation: normal bowel sounds Skin General skin exam: rashes and/or lesions noted Extrem General: Yes edema Assessment & Plan Assessment & Plan (1) COPD (chronic obstructive pulmonary disease): Code(s): J44.9 - Chronic obstructive pulmonary disease, unspecified Category: Medical Qualifiers: COPD type: COPD with acute lower respiratory infection Qualified Code(s): J44.0 - Chronic obstructive pulmonary disease with (acute) lower respiratory infection (2) Chronic restrictive lung disease: Comment: Moderate in severity Code(s): J98.4 - Other disorders of lung Category: Medical (3) Chronic bronchitis: Code(s): J42 - Unspecified chronic bronchitis Category: Medical Qualifiers: Chronic bronchitis type: mixed simple and mucopurulent Qualified C ode(s): J41.8 - Mixed simple and mucopurulent chronic bronchitis (4) Pulmonary nodule: Comment: new 6x8 mm nodule Code(s): R91.1 - Solitary pulmonary nodule Category: Medical (5) ILD (interstitial lung disease): Code(s): J84.9 - Interstitial pulmonary disease, unspecified Category: Medical (6) Pulmonary fibrosis: Code(s): J84.10 - Pulmonary fibrosis, unspecified Category: Medical (7) Head and neck cancer: Comment: PET negative Code(s): C76.0 - Malignant neoplasm of head, face and neck Category: Medical Plan Continue oxygen 2 L at nighttime continue CPAP, trial f20 Airtouch, consider f30i stopped Wixela YOLANDA as needed F/U 8-12 months Coding Level of Care Code Est Pt Level 4 (69405) Complex EM visit Add On G2211 Diagnoses Chronic obstructive pulmonary disease with acute lower respiratory infection J 44.0 COPD type: COPD with acute lower respiratory infection Chronic restrictive lung disease J98.4 Mixed simple and mucopurulent chronic bronchitis J41.8 Chronic bronchitis type: mixed simple and mucopurulent Pulmonary nodule R91.1 ILD (interstitial lung disease) J84.9 Pulmonary fibrosis J84.10 Head and neck cancer C76.0 Time Spent (min) 17
[2025-02-11 10:18] VITALS: BP 132/68; PULSE 72; O2SAT 97; BMI 37.7
--- OUTSIDE RECORDS SUMMARY | 2025-02-11 10:58 | XMS_ITS | Continuity of Care Document ---
Author Organization [facility] Address [address] [facility] [address] [place] [address] Phone [phone] Care Team Providers Care Shingle Cutter Name Role Phone Laurie Guzman Care Team Information Re ceiver [phone] Problems Active Problems Provider Date Essential hypertension [...] Medications SIG Qnty Indications Ordering Provider Date Poescf38ct Tablets one tab by mouth as needed 5tabs Kris Stoner M.D. 02/27/2023 Atorvastatin Qamwvec58gj Tablets Take 1 Tablet By Mouth Everyday AT Bedtime Laurie Guzman PPaola Alfuzosin HCL ER10mg Tablets ER 24HR Take 1 Tablet By Mouth Every Day Unknown Citalopram Jsvgsptkczst42ss Tablets Take 2 Tablet By Mouth Every Day Laurie Guzman P.A. Albuterol Sulfate PQY554(90Base) mcg/Act Aerosol Inhale 2 puff Every 4 Hours as Needed For Shortness Of Breath Or Wheezing Noe Huffman Qgwxwnvqtg733sm Capsules one prn Unknown Pqwutvurmoo9nf Tablets 1 by mouth every day Unknown Losartan Dwxobfapi18xg Tablets Take 1 Tablet By Mouth Every [...] Inhouse Glucose Fingerstick 139 Free Testosterone 05/30/2023 [facility] Testosterone, Total, LC/MS 395.3 1 Percent Free Testosterone 4.79 High 2 Free Testosterone, Equilibrium 18.93 3 Glucose Fingerstick 02/27/2023 Inhouse Glucose Fingerstick 137 Testosterone 12/27/2022 [facility] Testosterone 242 ng/dL Low (280-800 ) TSH With Reflex To FT4 10/02/2022 [facility] TSH With Reflex To FT4 1.86 uIU/mL (0.4-4.2 ) Bioavailable Testosterone 10/02/2022 [facility] Testosterone, Total, LC/MS 178.9 Low 4 Testosterone,Fr e e Weakly Bound 74.4 5 Testosterone,Fr e e Weakly % 41.6 6 Prolactin With Reflex To Monomeric 10/02/2022 [facility] Prolactin 13.3 NG/ML (4.0-15. 2) Prolactin, Monomeric 12.9 ng/dL Prolactin, Percent Monomeric 97 % 7 LH 10/02/2022 [facility] LH 5.2 MIU/ML (1.5-12. 4) 8 FSH 10/02/2022 [facility] FSH 4.3 MIU/ML (1.5-12. 4) 9 Free Testosterone Female And Juvenile 10/02/2022 [facility] Testosterone, Serum Total Pending SHBG Pending nmol/L (19-76) Free Testosterone, Estimated Pending ng/dL (3.7-14. 7) 50394-6 Test Cancelled, <SEE NOTE> 10 Testosterone,Oscar e & Total (Males > 15Yr) 10/02/2022 [facility] Testosterone 215 ng/dL Low (280-800 ) SHBG 14.3 nmol/L Low (19-76) Free Testosterone, Estimated 5.78 ng/dL (3.7-14. 7) Glucose Fingerstick 10/02/2022 Inhouse Glucose Fingerstick 199 1 Reference range: 264 .0 to 916.0 Unit: ng/dL (NOTE) This [facility] LC/MS-MS method is currently certified by the CDC Hormone Standardization Program (HoSt). Adult male reference interval is based on a population of healthy nonobese males (BMI <30) between 19 and 39 years old. Petty, et.al. EM 2017,102;7677-4410. PMID: 26052119. This test was developed and its performance characteristics determined by [facility]. It has not been cleared or approved by the Food and Drug Administration. 2 Reference range: 1.5 0 to 4.20 Unit: % 3 Reference range: 5.0 0 to 21.00 Unit: ng/dL Test performed at [address] [address] 4 Reference range: 264 .0 to 916.0 Unit: ng/dL (NOTE) This [facility] LC/MS-MS method is currently certified by the CDC Hormone Standardization Program (HoSt). Adult male reference interval is based on a population of healthy nonobese males (BMI <30) between 19 and 39 years old. Petty, et.al. EM 2017,102;2127-3525. PMID: 43690583. This test was developed and its performance characteristics determined by [facility]. It has not been cleared or approved by the Food and Drug Administration. 5 Reference range: 40. 0 to 250.0 Unit: ng/dL 6 Reference range: 9.0 to 46.0 Unit: % (NOTE) This test was developed and its performance characteristics determined by [facility]. It has not been cleared or approved by the Food and Drug Administration. Test performed at [address] [address] 7 SAMPLE CONTAINS MOST LY MONOMERIC PROLACTIN [...]
--- OUTSIDE RECORDS SUMMARY | 2025-02-11 10:58 | XMS_ITS | Clinical Summary ---
Author Organization [facility] Address [address] [place] [address] Phone Care Team Providers Care Spray Crew Name Role Phone Bear Parsons MD Primary Care Provider [phone] Social History Tobacco Use Types Packs/Day Years [...] Medical Devices Not on file Care Teams Spray Crew Relationship Specialty Start Date End Date Bear Parsons MD [address] [address] PCP - General Internal Medicine 04/01/19 Additional Source Comments The information contained in this document represents components of the legal health record. It is not the complete legal health record.[facility]
--- OUTSIDE RECORDS SUMMARY | 2025-02-11 10:58 | XMS_ITS | Clinical Summary ---
Author Organization [employer] [facility] [employer] [facility] Address [address] [place] [address] Care Team Providers Care Sheet Sewer Name Role Phone Laurie Guzman Primary Care Provider [phone] Surgical History Surgery Date Site/Laterality Comments KNEE SURGERY Right PROCEDURE:KNEE SURGERY COLONOSCOPY PROCEDURE:COLONOSCOPY HAND SURGERY Bilateral PROCEDURE:HAND SURGERY HERNIA REPAIR PROCEDURE:HERNIA REPAIR;COMMENT:umbilical LARYNGOSCOPY 09/19/2022 Bilateral PROCEDURE:LARYNGOSCOPY;COMMENT:Procedure: DIRECT LARYNGOSCOPY WITH BIOPSY; Surgeon: Soham Pearce MD; Location: [facility]ERY; Service: ENT; Laterality: [...] age to complete this topic Care Teams Sheet Sewer Relationship Specialty Start Date End Date Laurie Guzman PA [address] [facility] [address] [place] [phone] PCP - General Physician Care Specialist 03/15/22
--- OUTSIDE RECORDS SUMMARY | 2025-02-11 10:58 | XMS_ITS | Encounter Summary ---
Author Organization [facility] Address [address] [place] [address] Care Team Providers Care Manager Steel Name Role Phone Soham Pearce MD Primary Care Provider [phone] Encounter Details Date Type Department Care Team (Late st Contact Info) Description 09/27/2022 Orders Only [facility] [address] [place], [place] [id number] Soham Pearce MD [address] [facility] [address] [place], [place] [id number] Social History Tobacco Use Types Packs/Day Years [...] 17Sep2022 01:45PM Soham Pearce TESTING PERFORMED AT: [address] [address], PHONE [phone], FAX [phone] Test Name Result Flag Reference CT Neck [...] your patient to us, Po Marie MD [id number] (Electronically Signed - 09/26/2022 12:48) Copy: [facility] [address] [facility] [place] [address] documented in this encounter Plan of Treatment Not on file documented as of this encounter Visit Diagnoses Not on filedocumented in this encounter Care Teams Manager Steel Relationship Specialty Start Date End Date Soham Pearce MD [address] [facility] [address] [place] [address] PCP - General 02/04/23 documented as of this encounter
--- OUTSIDE RECORDS SUMMARY | 2025-02-11 10:58 | XMS_ITS | Encounter Summary ---
Author Organization [facility] Address [address] [place] [address] Care Team Providers Care Window Shade Cloth Sewer Name Role Phone Laurie Guzman PA-C Primary Care Provi walter Bernie Christianson MD Unavailable [phone] Soham Pearce MD Unavailable [phone] Noe Huffman MD Unavailable [phone] Nadeem Garcia ND Unavailable [phone] Dennis Stephens MD Unavailable Unavailable Terrell Morgan MD Unavailable [phone] Encounter Details Date Type Department Care Team (Late st Contact Info) Description 10/10/2023 Scanned Document [facility] ENDOCRINOLOGY SCAN Endocrinology, Scan Social History Tobacco [...] Description 05/13/2025 10:30 AM EST Office Visit [address] [place] [phone] Laurie Guzman PA-C [address] [place] [address] [place] [address] documented as of this encounter Visit Diagnoses Not on filedocumented in this encounter Care Teams Window Shade Cloth Sewer Relationship Specialty Start Date End Date Francisco JavierRenoLaurie Araujo PA-C [address] [place] [address] PCP - General Internal Medicine 07/23/23 Bernie Christianson MD [address] [place] [address] Referring Provider 05/12/24 Soham Pearce MD [address] [place] [address] [address] [place] [address] Physician Otolaryngology 05/12/24 Noe Huffman MD [address] [place] [address] Medicine Hospitalist 05/12/24 Nadeem Garcia ND [address] [place] [address] Referring Provider 05/12/24 Dennis Stephens MD [address] [place] [address] Referring Provider Urology 05/12/24 Terrell Morgan MD [address] [place] [address] Ophthalmology 05/12/24 Liz Bowser Physician Podiatry 04/27/24 documented as of this encounter
--- OUTSIDE RECORDS SUMMARY | 2025-02-11 10:59 | XMS_ITS | Clinical Summary ---
Author Organization [facility] Address [address] [place] [address] Care Team Providers Care Metal Treater Name Role Phone Laurie Guzman Primary Care Provider [phone] Allergies Active Allergy Reactions Criticality Noted Date [...] age to complete this topic Care Teams Metal Treater Relationship Specialty Start Date End Date Laurie Guzman PA PCP - General Physician Dredge Worker 03/15/22
--- OUTSIDE RECORDS SUMMARY | 2025-02-11 10:59 | XMS_ITS | Patient Health Record ---
Author Organization [facility] Address [address] [place] [address] Care Team Providers Care Cigar Wrapper Name Role Phone Laurie Manjarrez PA-C Primary Care Provider Nicole acBrenda Cole Unavailable [phone] Allergies Allergen (clinical drug ingredient) Drug/Non Drug [...] Problem Acquired hammer toe of right foot (54879932691 14170) Other hammer toe(s) (acquired), right foot (M20.41) Active confirmed Problem Acquired hammer toe of left foot (63181181501 09362) Other hammer toe(s) (acquired), left foot (M20.42) [...] Ulcer of toe of right foot (disorder) (11208363991 142726) Skin ulcer of toe of right foot, limited to breakdown of skin (L97.511) Active confirmed Response to treatment Problem Ulcer of toe of left foot (disorder) (00885571677 763097) Skin ulcer of toe of left foot, limited to breakdown of skin (L97.521) Active confirmed Response to treatment Vital Signs Height 5ft6in in 04/16/2024 Weight 225 lbs 04/16/2024 BMI 36.31 kg/m2 04/16/2024 Procedures Procedure Date Ordered Date Performed Result Body Sit e 20445-Alrbsjox Plate 04/03/2024 N/A 05434-Nqzkdfvi Plate Each Additional 04/03/2024 N/A 65438- Debride <25 sq cm 04/16/2024 N/A Encounters Encounter Location Date Provider Diagnosis [facility] [address] 04/03/2024 Brenda Black Ingrown nail L60.0 ; Toe pain, left M79.675 and Pain of toe of right foot M79.674 [facility] [address] [address] 04/16/2024 Brenda Black Skin ulcer of toe of left foot, limited to breakdown of skin L97.521 and Skin ulcer of toe of right foot, limited to breakdown of skin L97.[address] [facility] [address] 03/30/2024 Brenda Black Assessments Encounter Date Diagnosis [...] Treatment Pending Test Test Name Order Date 22022-Ydyknsmi Plate 06/21/2022 40242-Wbyvgjwx Plate 04/03/2024 76291-Dbvrwgsn Plate Each Additional 09/2023 84167-Jmprqual Plate Each Additional 65597- Debride <25 sq cm 06/21/2022 57311- Debride <25 sq cm 07/12/2022 72918- Debride <25 sq cm 04/16/2024 Insurance Providers Payer Name Payer Address Payer Phone Subscriber Number Group Number Insured Name Patient Relationship to Insured Coverage Start Date Coverage End Date Medicare National [employer] [address] [place] [address] [id number] Alexander Uriostegui Self - patient is the insured [employer] [facility] [address] [place] [address] [phone] [id number] Alexander Uriostegui Self - patient is the insured Medical (General) History Medical History History ICD Code Hepatitis High blood pressure Measles Mumps Chicken pox Back,Hip,and Knee pain covid-19 Diverticulosis Lung disease (ILD) Sciatica Pulmonary fibrosis Surgical History Surgery Date(Month/Year) hernia 2009 meniscus 2020 carpal tunnel surgery, bilateral 2020
--- OUTSIDE RECORDS SUMMARY | 2025-02-11 10:59 | XMS_ITS | Clinical Summary ---
Author Organization [facility] Address [address] [place] [address] Care Team Providers Care Reimbursement Analyst Name Role Phone Unavailable Primary Care Provider [...] age to complete this topic Insurance MEDICARE [facility] MEDICARE [facility] MEDICARE [facility]
== END 2025-02-11 10:49 | disposition home or self-care (01) ==
PROVIDERS: Visit Provider Hospitalist
DX: J44.0 Chronic obstructive pulmonary disease with (acute) lower respiratory infection (principal); J98.4 Other disorders of lung; J41.8 Mixed simple and mucopurulent chronic bronchitis; R91.1 Solitary pulmonary nodule; J84.9 Interstitial pulmonary disease, unspecified; J84.10 Pulmonary fibrosis, unspecified; C76.0 Malignant neoplasm of head, face and neck
CPT/HCPCS: 99214; G2211

== ENCOUNTER → 2025-02-11 10:14 | Outpatient (BNVA) | payer MEDICARE, SELFPAY | PROVIDERS: Visit Provider Hospitalist | DX: J41.8 Mixed simple and mucopurulent chronic bronchitis (principal); J44.0 Chronic obstructive pulmonary disease with (acute) lower respiratory infection; J98.4 Other disorders of lung; J84.9 Interstitial pulmonary disease, unspecified; J84.10 Pulmonary fibrosis, unspecified; R91.1 Solitary pulmonary nodule; C76.0 Malignant neoplasm of head, face and neck | CPT/HCPCS: 99212 ==

== ENCOUNTER → 2025-03-02 15:03 | Outpatient (BNV) | payer MEDICARE, SELFPAY | PROVIDERS: PCP Physician Assistant Medical; Visit Provider Radiology Diagnostic Radiology | DX: S83.232A Complex tear of medial meniscus, current injury, left knee, initial encounter (principal) | CPT/HCPCS: 73721 ==

== ENCOUNTER 2025-03-02 15:04 | Outpatient (REF) | payer MEDICARE, SELFPAY ==
--- NOTE | ~2025-03-02 | MR_ITS ---
EXAM: MRI LOWER EXTREMITY JOINT, KNEE, left TECHNIQUE: Multiplanar multisequence MR imaging performed through the left knee without contrast. INDICATION: S83.242A - Other tear of medial meniscus, current injury, left knee, ini... PRIOR: None FINDINGS: Menisci: Lateral Meniscus: There is cortical linear signal extending to the tibial surface at the junction of posterior horn lateral meniscus and Wrisberg ligament raising question of minimal separation or tear at this junction. Medial Meniscus: There is oblique intermediate signal in the posterior horn extending from the peripheral femoral side to the tibial surface consistent with a tear. The junction of posterior body and posterior horn medial meniscus appears small and irregular. There is severe extrusion of the medial meniscal body. ACL/PCL: ACL demonstrates mild to moderate hyperintensity but appears grossly intact. There is degenerative cystic change in the tibial marrow just posterior to the ACL tibial footprint. PCL appears intact. Extensor mechanism: Small joint effusion is present. There is trace fluid in the deep infrapatellar bursa. Tendons are intact MCL/LCL: MCL is bowed outward by extruded meniscus but appears otherwise unremarkable. LCL complex is intact and unremarkable. Articular cartilage: Patellofemoral Compartment: There is a deep partial thickness articular cartilage defect involving median ridge of the junction of middle third and upper third patella. There is undulating surface of the articular cartilage across the middle third patella consistent with grade II chondromalacia. There is likely a full-thickness fissure through the articular cartilage of the lower third patella, medial facet possibly with examination extending cephalad. There is moderate diffuse thinning of trochlear cartilage, most advanced in the trochlear groove, consistent with grade III chondromalacia. Lateral Compartment: Articular cartilage is intact. Medial Compartment: There is diffuse loss of cartilage in the central weightbearing region of the medial femoral condyle which demonstrates an undulating surface, consistent with grade 3 chondromalacia. There is mild diffuse thinning of tibial cartilage. Bones/Marrow: There are tricompartmental marginal sites, most pronounced along the medial joint line. There are no marrow replacing lesions. Soft tissues: There is a multiloculated moderate-sized leaking Be's cyst. There is diffuse reticulation of subcutaneous soft tissues consistent with mild edema. MR/MR knee LT wo con IMPRESSION: There is an oblique tear involving posterior horn medial meniscus. At the junction of the posterior body and posterior horn, the meniscus is small and irregular. This could be from prior partial meniscectomy, or there could be an occult displaced meniscal flap. Finally, there is severe extrusion of medial meniscal body. Possible lateral meniscus tear at the junction of the meniscal femoral ligament. Moderate osteoarthritis with cartilage loss is most advanced in the patellofemoral joint and medial femoral condyle. There is a small joint effusion. There is a multiloculated leaking Be's cyst. Mucoid degenerated ACL. Electronically signed by: Gil Michael MD 03/02/2025 04:04 PM EDT
--- OUTSIDE RECORDS SUMMARY | 2025-03-02 16:18 | XMS_ITS | Clinical Summary ---
Author Organization [facility] Address [address] [place] [address] Phone Care Team Providers Care Postpartum Nurse Name Role Phone Bear Parsons MD Primary Care Provider [phone] Social History Tobacco Use Types Packs/Day Years [...] Medical Devices Not on file Care Teams Postpartum Nurse Relationship Specialty Start Date End Date Bear Parsons MD [address] [address] PCP - General Internal Medicine 04/01/19 Additional Source Comments The information contained in this document represents components of the legal health record. It is not the complete legal health record.[facility]
--- OUTSIDE RECORDS SUMMARY | 2025-03-02 16:18 | XMS_ITS | Clinical Summary ---
Author Organization [facility] Address [address] [place] [address] Care Team Providers Care Telegraph Service Rater Name Role Phone Unavailable Primary Care Provider [...] Pneumococcal Vaccine (50+ years) Completed 06/20/2023 Meningococcal B Vaccine Aged Out No l onger eligible based on patient's age to complete this topic Meningococcal Vaccine Aged Out No parvin mary eligible based on patient's age to complete this topic Insurance MEDICARE [facility] MEDICARE [facility] MEDICARE [facility]
--- OUTSIDE RECORDS SUMMARY | 2025-03-02 16:18 | XMS_ITS | Continuity of Care Document ---
Author Organization [facility] [address] [facility] [address] [place] [address] Phone [phone] Care Team Providers Care Hand Riveter Name Role Phone Laurie Guzman Care Team Information Re ceiver [phone] Problems Active Problems Provider Date Essential hypertension [...] Medications SIG Qnty Indications Ordering Provider Date Etglka78en Tablets one tab by mouth as needed 5tabs Kris Stoner M.D. 02/27/2023 Atorvastatin Cbggien14vn Tablets Take 1 Tablet By Mouth Everyday AT Bedtime Laurie Guzman PPaola Alfuzosin HCL ER10mg Tablets ER 24HR Take 1 Tablet By Mouth Every Day Unknown Citalopram Pucjrrbfslvb20qc Tablets Take 2 Tablet By Mouth Every Day Laurie Guzman P.A. Albuterol Sulfate IMB374(90Base) mcg/Act Aerosol Inhale 2 puff Every 4 Hours as Needed For Shortness Of Breath Or Wheezing Noe Huffman Dmbcbhnhyv125iy Capsules one prn Unknown Hruhfqifoub2vs Tablets 1 by mouth every day Unknown Losartan Qpeujesuo15qo Tablets Take 1 Tablet By Mouth Every [...] Inhouse Glucose Fingerstick 139 Free Testosterone 05/30/2023 [facility] Testosterone, Total, LC/MS 395.3 1 Percent Free Testosterone 4.79 High 2 Free Testosterone, Equilibrium 18.93 3 Glucose Fingerstick 02/27/2023 Inhouse Glucose Fingerstick 137 Testosterone 12/27/2022 [facility] Testosterone 242 ng/dL Low (280-800 ) TSH With Reflex To FT4 10/02/2022 [facility] TSH With Reflex To FT4 1.86 uIU/mL (0.4-4.2 ) Bioavailable Testosterone 10/02/2022 [facility] Testosterone, Total, LC/MS 178.9 Low 4 Testosterone,Fr e e Weakly Bound 74.4 5 Testosterone,Fr e e Weakly % 41.6 6 Prolactin With Reflex To Monomeric 10/02/2022 [facility] Prolactin 13.3 NG/ML (4.0-15. 2) Prolactin, Monomeric 12.9 ng/dL Prolactin, Percent Monomeric 97 % 7 LH 10/02/2022 [facility] LH 5.2 MIU/ML (1.5-12. 4) 8 FSH 10/02/2022 [facility] FSH 4.3 MIU/ML (1.5-12. 4) 9 Free Testosterone Female And Juvenile 10/02/2022 [facility] Testosterone, Serum Total Pending SHBG Pending nmol/L (19-76) Free Testosterone, Estimated Pending ng/dL (3.7-14. 7) [address]-0 Test Cancelled, <SEE NOTE> 10 Testosterone,Oscar e & Total (Males > 15Yr) 10/02/2022 [facility] Testosterone 215 ng/dL Low (280-800 ) SHBG 14.3 nmol/L Low (19-76) Free Testosterone, Estimated 5.78 ng/dL (3.7-14. 7) Glucose Fingerstick 10/02/2022 Inhouse Glucose Fingerstick 199 1 Reference range: 264 .0 to 916.0 Unit: ng/dL (NOTE) This [facility] LC/MS-MS method is currently certified by the CDC Hormone Standardization Program (HoSt). Adult male reference interval is based on a population of healthy nonobese males (BMI <30) between 19 and 39 years old. Petty, et.al. EM 2017,102;8960-1166. PMID: 15038809. This test was developed and its performance characteristics determined by [facility]. It has not been cleared or approved by the Food and Drug Administration. 2 Reference range: 1.5 0 to 4.20 Unit: % 3 Reference range: 5.0 0 to 21.00 Unit: ng/dL Test performed at [address] [address] 4 Reference range: 264 .0 to 916.0 Unit: ng/dL (NOTE) This [facility] LC/MS-MS method is currently certified by the CDC Hormone Standardization Program (HoSt). Adult male reference interval is based on a population of healthy nonobese males (BMI <30) between 19 and 39 years old. Petty, et.al. EM 2017,102;6070-0476. PMID: 40389041. This test was developed and its performance characteristics determined by [facility]. It has not been cleared or approved by the Food and Drug Administration. 5 Reference range: 40. 0 to 250.0 Unit: ng/dL 6 Reference range: 9.0 to 46.0 Unit: % (NOTE) This test was developed and its performance characteristics determined by [facility]. It has not been cleared or approved by the Food and Drug Administration. Test performed at [address] [address] 7 SAMPLE CONTAINS MOST LY MONOMERIC PROLACTIN [...]
--- OUTSIDE RECORDS SUMMARY | 2025-03-02 16:18 | XMS_ITS | Clinical Summary ---
Author Organization [facility] Address [address] [place] [address] Care Team Providers Care Drug Abuse Treatment Specialist Name Role Phone Laurie Guzman Primary Care Provider [phone] Allergies Active Allergy Reactions Criticality Noted Date [...] age to complete this topic Care Teams Drug Abuse Treatment Specialist Relationship Specialty Start Date End Date Laurie Guzman PA PCP - General Physician Credit Negotiator 03/15/22
--- OUTSIDE RECORDS SUMMARY | 2025-03-02 16:18 | XMS_ITS | Encounter Summary ---
Author Organization [facility] Address [address] [place] [address] Care Team Providers Care Military Communications Specialist Name Role Phone Soham Pearce MD Primary Care Provider Encounter Details Date Type Department Care Team (Late st Contact Info) Description 09/27/2022 Orders Only [facility] 3 [place], [place] [id number] Soham Pearce MD [address] [facility] [address] [place], [place] [id number] Social History Tobacco Use Types Packs/Day Years [...] 17Sep2022 01:45PM Soham Pearce TESTING PERFORMED AT: [address] [address], PHONE [phone], FAX [phone] Test Name Result Flag Reference CT Neck [...] your patient to us, Po Marie MD [id number] (Electronically Signed - 09/26/2022 12:48) Copy: [facility] [address] [facility] [place] [address] documented in this encounter Plan of Treatment Not on file documented as of this encounter Visit Diagnoses Not on filedocumented in this encounter Care Teams Military Communications Specialist Relationship Specialty Start Date End Date Soham Pearce MD [address] [facility] [address] [place] [address] PCP - General 02/04/23 documented as of this encounter
--- OUTSIDE RECORDS SUMMARY | 2025-03-02 16:18 | XMS_ITS | Clinical Summary ---
Author Organization [facility] Address [address] [place] [address] Care Team Providers Care Spout Worker Name Role Phone Soham Pearce MD Primary Care Provider Allergies Active Allergy Reactions Criticality Noted Date Comments Lisinopril 12/24/2022 Medications Atenolol (TENORMIN) 50 MG tablet TAKE 1 TABLET BY MOUTH EVERY DAY 90 0 2 Active Benzonatate (TESSALON) 200 MG capsule TAKE 1 CAPSULE BY MOUTH TWICE A DAY NEEDED FOR COUGH 60 0 2 Active Furosemide (LASIX) 20 MG tablet TAKE 1 TAB BY MOUTH DAILY 5 0 2 Active Fluticasone-Umecl idin-Vilant (Trelegy Ellipta) 100-62.5-25 MCG/ACT AEROSOL POWDER, BREATH ACTIVATED INHALE ONCE DAILY FOR 30 DAYS 60 0 2 Active predniSONE (DELTASONE) 10 MG tablet TAKE 2 TABS DAILY X 14 DAYS, THEN 1 TAB DAILY X 42 DAYS 70 0 2 Active prochlorperazine (COMPAZINE) 10 MG tablet 15 0 2 Active Losartan Potassium (COZAAR) 50 MG tablet 90 0 2 Active hydroCHLOROthiazi de (HYDRODIURIL) 12.5 MG tablet 90 0 3 Active Levalbuterol HCl (XOPENEX) 1.25 MG/3ML nebulizer solution INHALE 1 VIAL VIA NEBULIZER 2 TIMES A DAY 90 0 3 Active BUDESONIDE, INHALATION, (PULMICORT) 0.5 MG/2ML nebulizer solution INHALE 2 ML VIA NEBULIZER DAILY FOR 30DAYS 180 0 3 Active Citalopram Hydrobromide (CeleXA) 10 MG tablet 90 0 02/07/202 3 Active guaiFENesin-Codei ne (ROBITUSSIN-AC) 100-10 MG/5ML liquid TAKE 10MLS BY MOUTH EVERY 6 HOURS FOR 10 DAYS NEEDED FOR COUGH 300 0 3 Active Alfuzosin HCl (UROXATRAL) 10 MG 24 hr tablet 90 0 3 Active Oxybutynin Chloride (DITROPAN-XL) 10 MG 24 hr tablet 90 0 3 Active Atorvastatin Calcium (LIPITOR) 10 MG tablet 90 0 3 Active MetFORMIN HCl (FORTAMET) 1000 MG 24 hr tablet 90 0 3 Active Gabapentin (NEURONTIN) 100 MG capsule PLEASE SEE ATTACHED FOR DETAILED DIRECTIONS 120 0 3 Active Dextromethorphan HBr ([facility] Tussin Cough) 15 MG Cap TAKE 2 CAPSULES EVERY 6 HOURS NEEDED FOR COUGH FOR 14 DAYS 60 0 3 Active Cyclobenzaprine HCl (FLEXERIL) 10 MG tablet 14 0 3 Active Diclofenac Sodium 1 % Gel 100 0 3 Active oxyCODONE HCl (ROXICODONE) 5 MG immediate release tablet 28 0 3 Active Lidocaine Viscous HCl (XYLOCAINE) 2 % solution 100 0 3 Active Citalopram Hydrobromide (CeleXA) 20 MG tablet 90 0 3 Active Azithromycin (ZITHROMAX) 250 MG tablet TAKE 1 TABLET (250 MG TOTAL) BY MOUTH DAILY. TAKE 2 TABLETS ON DAY ONE AND THEN 1 TABLET PER DAY. 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 02/25/2023 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 12/24/2022 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 Pharyngoesophageal dysphagia 09/10/2022 Immunizations Immunization Administration Dates Next Due Influenza, Quad, Inactivated, Adjuvanted, Preser Fr 06/20/2023 PCV-20 06/20/2023 Social History Tobacco Use Types Packs/Day Years Used Date Smoking Tobacco: Never Assessed Sex and Gender Information Value Date Recorded Sex Assigned at Not on file Legal Sex Male 3:02 PM EDT Gender Identity Not on file Sexual Orientation Not on file Plan of Treatment Health Maintenance Due Date Last Done Comments Hepatitis C Screening 1955 COVID-19 Vaccine (#1) 10/28/1959 DTaP/Tdap/Td (1 - Tdap) 1972 Zoster (Shingrix) (1 of 2) 1973 Colon Cancer Screening 10/28/1999 RSV (1 - Risk 60-74 years 1- dose series) 2014 Influenza (#1) 2025 06/20/2023 Pneumococcal 50+ years Completed 06/20/2023 Abdominal Aorta Imaging Discontinued HPV Vaccine (No Doses Required) Completed Hep A Aged Out No longer eligi ble based on patient's age to complete this topic Hep B Aged Out No longer eligi ble based on patient's age to complete this topic Hib Aged Out No longer eligi ble based on patient's age to complete this topic Meningococcal ACWY Aged Out No longer eligible based on patient's age to complete this topic Care Teams Spout Worker Relationship Specialty Start Date End Date Soham Pearce MD [address] [facility] [address] [place] [address] PCP - General 02/04/23
--- OUTSIDE RECORDS SUMMARY | 2025-03-02 16:18 | XMS_ITS | Clinical Summary ---
Author Organization [employer] [facility] Address [address] [place] [address] Care Team Providers Care Sewing Supervisor Name Role Phone Laurie Guzman Primary Care Provider [phone] Surgical History Surgery Date Site/Laterality Comments KNEE SURGERY Right PROCEDURE:KNEE SURGERY COLONOSCOPY PROCEDURE:COLONOSCOPY HAND SURGERY Bilateral PROCEDURE:HAND SURGERY HERNIA REPAIR PROCEDURE:HERNIA REPAIR;COMMENT:umbilical LARYNGOSCOPY 09/19/2022 Bilateral PROCEDURE:LARYNGOSCOPY;COMMENT:Procedure: DIRECT LARYNGOSCOPY WITH BIOPSY; Surgeon: Soham Pearce MD; Location: [facility]; Service: ENT; Laterality: [...] age to complete this topic Care Teams Sewing Supervisor Relationship Specialty Start Date End Date Laurie Guzman PA [address] [facility] [address] [place] [id number] PCP - General Physician Layout Artist 03/15/22
--- OUTSIDE RECORDS SUMMARY | 2025-03-02 16:18 | XMS_ITS | Encounter Summary ---
Author Organization [facility] Address [address] [place] [address] [place] [address] Phone Care Team Providers Care Computer Specialist Name Role Phone Bear Parsons MD Primary Care Provider [phone] Encounter Details Date Type Department Care Team (Latest Contact Info) Description 04/01/2019 Transcribe Orders [facility] [address] [place] [address] Portillo Hernandez MD [address] [place] [address], [address] [address] [email or web address] Prostate cancer screening (Primary Dx) Social History Tobacco Use Types Packs/Day Years Used Date Smoking Tobacco: Never Assessed Sex and Gender Information Value Date Recorded Sex Assigned at Not on file Legal Sex Male 10:35 PM EDT Gender Identity Not on file Sexual Orientation Not on file documented as of this encounter Plan of Treatment Not on file documented as of this encounter Results * (ABNORMAL) PSA, free and total (04/01/2019 2:39 PM EDT) PSA, TOTAL 5.2(H) <=4.5 ng/mL [facility] FREE PSA 1.1 ng/mL [facility] FREE/TOT PSA RATIO 0.[address] [facility] Comment: (NOTE) When total PSA is in the range of 4.0-10.0 ng/mL, a free PSA / Total PSA ratio of < or = 0.10 indicates 49 to 65 % risk of prostate cancer depending on age; and a free PSA / total PSA ratio of > 0.25 indicates a 9 to 16% risk of prostate cancer depending on age. ADDITIONAL INFORMATION The testing method is an electrochemiluminescence assay manufactured by [employer] and performed on the Modular or Binu system. Values obtained with different assay methods or kits may be different and cannot be used interchangeably. Test results cannot be interpreted as absolute evidence for the presence or absence of malignant disease. Blood 04/01/2019 2:39 PM EDT 04/01/2019 2:44 PM EDT us Portillo Hernandez MD LAB BLOOD ORDERABLES Final Resu lt [facility] [address] [place] [address] documented in this encounter Visit Diagnoses Diagnosis Prostate cancer screening- Primary Special screening for malignant neoplasm of prostate documented in this encounter Care Teams Computer Specialist Relationship Specialty Start Date End Date Bear Parsons MD [address] [address] PCP - General Internal Medicine 04/01/19 documented as of this encounter Additional Source Comments The information contained in this document represents components of the legal health record. It is not the complete legal health record.[facility]
== END 2025-03-02 15:05 | disposition home or self-care (01) ==
LOC: HO.MRI 15:04
PROVIDERS: PCP Physician Assistant Medical; Visit Provider Orthopaedic Surgery
DX: S83.242A Other tear of medial meniscus, current injury, left knee, initial encounter (principal)
CPT/HCPCS: 73721

== ENCOUNTER 2025-03-10 10:45 | Outpatient (AMB) | payer MEDICARE, SELFPAY ==
--- NOTE | 2025-03-10 10:52 | MHC.OFFVIS ---
Vital Signs 03/10/25 10:55 Height 5 ft 6 in Weight 235 lb BMI 37.9 Intake Visit Reasons: Left knee pain Intake Note: Alexander is a 69 year old male who presents with complaints of continued left knee pain. The patient did have bilateral knee Durolane viscosupplementation injections given into his knees on 01/26/2025. His left knee pain continues. He has not had surgery on his left knee. He states that he underwent right knee ?meniscus surgery? approximately 5 years ago. He reports mild intermittent discomfort in his right knee. He does wear a brace on his left knee to help with the pain and symptoms of instability. Allergies lisinopril Allergy (Unknown, Verified 03/10/25 10:56) Unknown Medication List - Last Reconciled 03/10/25 by Hebert Heredia MD alfuzosin ER 10 mg PO DAILY aspirin 81 mg PO DAILY atorvastatin 10 mg PO DAILY budesonide 0.5 mg (2 mL) inhalation DAILY 30 days citalopram 20 mg PO DAILY finasteride 5 mg PO DAILY fluticasone furoate-vilanterol 100-25 mcg/dose (Breo Ellipta) 1 inh inhalation DAILY 30 days fluticasone propion-salmeterol 250-50 mcg/dose (Wixela Inhub) 1 inh inhalation Q12H 30 days gabapentin 200 mg PO BID levalbuterol HCl 1.25 mg (3 mL) inhalation BID losartan 25 mg PO DAILY Oxygen Home Use As directed ProAir HFA 90 mcg/actuation (albuterol sulfate) 2 puffs inhalation Q4H PRN NS PFSH Medical History COPD (chronic obstructive pulmonary disease) Head and neck cancer ILD (interstitial lung disease) Pneumonitis Pulmonary nodule Lower extremity edema Dyspnea Chronic bronchitis Cough Chronic restrictive lung disease COVID-19 Pulmonary fibrosis Surgical History History of bilateral carpal tunnel release Hx of umbilical hernia repair Social History Household Members: Spouse Household Members Other:: Kristen - Patient Tobacco Use Status: Never used Tobacco Second Hand Smoke Exposure: No Current occupational status: retired Current occupation: Right hand dominant Physical Exam Vital Signs: BMI result Body Mass Index 37.9 Extrem Other: Left knee examination shows mild crepitus with range of motion, tenderness along his medial joint line, no instability Results Reviewed Results Reviewed: MRI of the patient's left knee shows moderate diffuse degenerative changes most significant in the patellofemoral joint as well as a tear of the medial meniscus (MRI pictures were reviewed with the patient today and he was given a copy of them per his request) Assessment & Plan Assessment & Plan (1) Left knee pain: Code(s): M25.562 - Pain in left knee (2) Tear of medial meniscus of left knee: Code(s): S83.242A - Other tear of medial meniscus, current injury, left knee, initial encounter Category: Medical (3) Osteoarthritis of left knee: Code(s): M17.12 - Unilateral primary osteoarthritis, left knee Category: Medical Plan Mr. Uriostegui presents with continued left knee pain due to a medial meniscus tear and degenerative joint disease. I had a lengthy discussion with the patient regarding the treatment options. The patient understands that he may not get significant relief from an arthroscopic partial medial meniscectomy. The outcome of an arthroscopic procedure will depend on the significance of his degenerative changes. The patient could opt for total knee replacement surgery which would likely have a better rate of intermission coordinator pain relief. Otherwise he will continue with his activity modifications. Feel free to call me at any time should questions regarding his orthopedic management arise. I spent 21 minutes in reviewing the patient's records and imaging studies, seeing the patient and documenting in the medical record. Coding Level of Care Code Est Pt Level 3 (13472) Complex EM visit Add On G2211 Diagnoses Left knee pain M25.562 Tear of medial meniscus of left knee S83.242A Osteoarthritis of left knee M17.12
[2025-03-10 10:55] VITALS: BMI 37.9
--- OUTSIDE RECORDS SUMMARY | 2025-03-10 13:23 | XMS_ITS | Continuity of Care Document ---
Author Organization [facility] [address] [facility] [address] [place] [address] Phone [phone] Care Team Providers Care Base Engineer Name Role Phone Laurie Guzman Care Team Information Re ceiver [phone] Problems Active Problems Provider Date Essential hypertension [...] Tongue carcinoma Kris Stoner M.D. Onset: Hypogonadism Krsi Stoner M.D. Onset: 09/2022 Hypercholesterolemia Krsi Stoner M.D. Onset : 10/02/2022 Social History Type Date Description Comments Sex Male Sex Unknown Tobacco Use Start: Unknown Never Smoked Cigarettes Allergies and adverse reactions Active Allergies Criticality Reaction Severity Comments Date Lisinopril Unable to assess criticality 10/02/2022 Medications Active Medications SIG Qnty Indications Ordering Provider Date [id number] Tablets one tab by mouth as needed 5tabs Kris Stoner M.D. 02/27/2023 Atorvastatin Rskbfil99om Tablets Take 1 Tablet By Mouth Everyday AT Bedtime Laurie Guzman PPaola Alfuzosin HCL ER10mg Tablets ER 24HR Take 1 Tablet By Mouth Every Day Unknown Citalopram Zciwsmgujnpr23yg Tablets Take 2 Tablet By Mouth Every Day Laurie Guzman P.A. Albuterol Sulfate KXP369(90Base) mcg/Act Aerosol Inhale 2 puff Every 4 Hours as Needed For Shortness Of Breath Or Wheezing Noe Huffman Bpfnkpusvd781mu Capsules one prn Unknown Netkvtybxaw4au Tablets 1 by mouth every day Unknown Losartan Bxaohpgay46dw Tablets Take 1 Tablet By Mouth Every [...] Inhouse Glucose Fingerstick 139 Free Testosterone 05/30/2023 [facility] Testosterone, Total, LC/MS 395.3 1 Percent Free Testosterone 4.79 High 2 Free Testosterone, Equilibrium 18.93 3 Glucose Fingerstick 02/27/2023 Inhouse Glucose Fingerstick 137 Testosterone 12/27/2022 [facility] Testosterone 242 ng/dL Low (280-800 ) TSH With Reflex To FT4 10/02/2022 [facility] TSH With Reflex To FT4 1.86 uIU/mL (0.4-4.2 ) Bioavailable Testosterone 10/02/2022 [facility] Testosterone, Total, LC/MS 178.9 Low 4 Testosterone,Fr e e Weakly Bound 74.4 5 Testosterone,Fr e e Weakly % 41.6 6 Prolactin With Reflex To Monomeric 10/02/2022 [facility] Prolactin 13.3 NG/ML (4.0-15. 2) Prolactin, Monomeric 12.9 ng/dL Prolactin, Percent Monomeric 97 % 7 LH 10/02/2022 [facility] LH 5.2 MIU/ML (1.5-12. 4) 8 FSH 10/02/2022 [facility] FSH 4.3 MIU/ML (1.5-12. 4) 9 Free Testosterone Female And Juvenile 10/02/2022 [facility] Testosterone, Serum Total Pending SHBG Pending nmol/L (19-76) Free Testosterone, Estimated Pending ng/dL (3.7-14. 7) 23774-8 Test Cancelled, <SEE NOTE> 10 Testosterone,Oscar e & Total (Males > 15Yr) 10/02/2022 [facility] Testosterone 215 ng/dL Low (280-800 ) SHBG 14.3 nmol/L Low (19-76) Free Testosterone, Estimated 5.78 ng/dL (3.7-14. 7) Glucose Fingerstick 10/02/2022 Inhouse Glucose Fingerstick 199 1 Reference range: 264 .0 to 916.0 Unit: ng/dL (NOTE) This [facility] LC/MS-MS method is currently certified by the CDC Hormone Standardization Program (HoSt). Adult male reference interval is based on a population of healthy nonobese males (BMI <30) between 19 and 39 years old. Petty, et.al. EM 2017,102;0538-9826. PMID: [id number]. This test was developed and its performance characteristics determined by [facility]. It has not been cleared or approved by the Food and Drug Administration. 2 Reference range: 1.5 0 to 4.20 Unit: % 3 Reference range: 5.0 0 to 21.00 Unit: ng/dL Test performed at [address] [address] 4 Reference range: 264 .0 to 916.0 Unit: ng/dL (NOTE) This [facility] LC/MS-MS method is currently certified by the CDC Hormone Standardization Program (HoSt). Adult male reference interval is based on a population of healthy nonobese males (BMI <30) between 19 and 39 years old. Petty, et.al. EM 2017,102;0883-1630. PMID: 01482533. This test was developed and its performance characteristics determined by [facility]. It has not been cleared or approved by the Food and Drug Administration. 5 Reference range: 40. 0 to 250.0 Unit: ng/dL 6 Reference range: 9.0 to 46.0 Unit: % (NOTE) This test was developed and its performance characteristics determined by [facility]. It has not been cleared or approved by the Food and Drug Administration. Test performed at [address] [address] 7 SAMPLE CONTAINS MOST LY MONOMERIC PROLACTIN [...]
--- OUTSIDE RECORDS SUMMARY | 2025-03-10 13:23 | XMS_ITS | Encounter Summary ---
Author Organization [facility] Address [address] [place] [address] Care Team Providers Care Arc Cutter Name Role Phone Laurie Guzman PA-C Primary Care Provi walter Bernie Christianson MD Unavailable [phone] Soham Pearce MD Unavailable [phone] Noe Huffman MD Unavailable [phone] Nadeem Garcia ND Unavailable [phone] Dennis Stephens MD Unavailable Unavailable Terrell Morgan MD Unavailable [phone] Encounter Details Date Type Department Care Team (Late st Contact Info) Description 12/31/2023 Scanned Document [address] [phone] Gastroenterology, Scan Social History Tobacco Use Types Packs/Day [...] Encounters Date Type Department Care Team (Late Contact Info) Description 05/13/2025 10:30 AM EST Office Visit [address] [phone] Laurie Guzman PA-C [address] [place] [address] documented as of this encounter Visit Diagnoses Not on filedocumented in this encounter Care Teams Arc Cutter Relationship Specialty Start Date End Date Laurie Guzman PA-C [address] [place] [address] PCP - General Internal Medicine 07/23/23 Bernie Christianson MD [address] [place] [address] Referring Provider 05/12/24 Soham Pearce MD [address] [place] [address] [address] [place] [address] Physician Otolaryngology 05/12/24 Noe Huffman MD [address] [place] [address] Medicine Hospitalist 05/12/24 Nadeem Garcia ND [address] [place] [address] Referring Provider 05/12/24 Dennis Stephens MD [address] [place] [address] Referring Provider Urology 05/12/24 Terrell Morgan MD [address] [place] [address] Ophthalmology 05/12/24 Liz Bowser Physician Podiatry 04/27/24 documented as of this encounter
--- OUTSIDE RECORDS SUMMARY | 2025-03-10 13:23 | XMS_ITS | Encounter Summary ---
Author Organization [facility] Address [address] [place] [address] Care Team Providers Care Air Reduction Equipment Operator Name Role Phone Laurie Guzman PA-C Primary Care Provi walter Bernie Christianson MD Unavailable [phone] Soham Pearce MD Unavailable [phone] Noe Huffman MD Unavailable [phone] Nadeem Garcia ND Unavailable [phone] Dennis Stephens MD Unavailable Unavailable Terrell Morgan MD Unavailable [phone] Encounter Details Date Type Department Care Team (Late st Contact Info) Description 05/13/2024 Scanned Document [facility] Provider, Generic External Data Social History Tobacco Use Types Packs/Day Years Used Date Smoking Tobacco: Never Smokeless Tobacco: Never Alcohol Use Standard Drinks/Week Comments Yes 0 (1 standard drink = 0.6 oz pur e alcohol) PHQ-2 Answer Date Recorded PHQ-2 Total Score 2 05/12/2024 Sex and Gender Information Value Date Recorded Sex Assigned at Male 07/23/2023 1:30 PM EST Legal Sex Male 12:12 PM EDT Gender Identity Male 07/23/2023 1:30 PM EST Sexual Orientation Heterosexual (straight) 07/23 1:30 PM EST documented as of this encounter Plan of Treatment Upcoming Encounters Date Type Department Care Team (Late st Contact Info) Description 05/13/2025 10:30 AM EST Office Visit [address] [place] [address] Laurie Guzman PA-C [address] [place] [address] documented as of this encounter Visit Diagnoses Not on filedocumented in this encounter Care Teams Air Reduction Equipment Operator Relationship Specialty Start Date End Date Laurie Guzman PA-C [address] [place] [address] PCP - General Internal Medicine 07/23/23 Bernie Christianson MD [address] [place] [address] Referring Provider 05/12/24 Soham Pearce MD [address] [place] [address] [address] [place] [address] Physician Otolaryngology 05/12/24 Noe Huffman MD [address] [place] [address] Medicine Hospitalist 05/12/24 Nadeem Garcia ND [address] [place] [address] Referring Provider 05/12/24 Dennis Stephens MD [address] [place] [address] Referring Provider Urology 05/12/24 Terrell Morgan MD [address] [place] [address] Ophthalmology 05/12/24 Liz Bowser Physician Podiatry 04/27/24 documented as of this encounter
--- OUTSIDE RECORDS SUMMARY | 2025-03-10 13:23 | XMS_ITS | Encounter Summary ---
Author Organization [facility] Address [address] [place] [address] Care Team Providers Care Tablet Repair Name Role Phone Soham Pearce MD Primary Care Provider [phone] Encounter Details Date Type Department Care Team (Late st Contact Info) Description 09/27/2022 Orders Only [facility] [address] [place], [place] [id number] Soham Pearce MD [address] [facility] [address] [place], [place] [id number] Social History Tobacco Use Types Packs/Day Years [...] 17Sep2022 01:45PM Soham Pearce TESTING PERFORMED AT: [address] [address], PHONE [phone], FAX [phone] Test Name Result Flag Reference CT Neck [...] your patient to us, Po Marie MD [id number] (Electronically Signed - 09/26/2022 12:48) Copy: [facility] [address] [facility] [address] [place] [address] documented in this encounter Plan of Treatment Not on file documented as of this encounter Visit Diagnoses Not on filedocumented in this encounter Care Teams Tablet Repair Relationship Specialty Start Date End Date Soham Pearce MD 599 [facility] [address] [place] [address] PCP - General 02/04/23 documented as of this encounter
--- OUTSIDE RECORDS SUMMARY | 2025-03-10 13:23 | XMS_ITS | Encounter Summary ---
Author Organization [facility] Address [address] [place] [address] Care Team Providers Care Director Of Business Applications Name Role Phone Laurie Guzman PA-C Primary Care Provi walter Bernie Christianson MD Unavailable [phone] Soham Pearce MD Unavailable [phone] Noe Huffman MD Unavailable [phone] Nadeem Garcia ND Unavailable [phone] Dennis Stephens MD Unavailable Unavailable Terrell Morgan MD Unavailable [phone] Encounter Details Date Type Department Care Team (Late st Contact Info) Description 06/15/2024 Scanned Document [facility] [address] [place] [address] Pulmonary, Scan Social History Tobacco Use Types Packs/Day [...] Description 05/13/2025 10:30 AM EST Office Visit [facility] 100 [facility] [address] [place] [address] Laurie Guzman PA-C [address] [place] [address] documented as of this encounter Visit Diagnoses Not on filedocumented in this encounter Care Teams Director Of Business Applications Relationship Specialty Start Date End Date Laurie Guzman PA-C [address] [place] [address] PCP - General Internal Medicine 07/23/23 Bernie Christianson MD [address] [place] [address] Referring Provider 05/12/24 Soham Pearce MD [address] [place] [address] 100 [place] [address] Physician Otolaryngology 05/12/24 Noe Huffman MD [address] [place] [address] Medicine Hospitalist 05/12/24 Nadeem Garcia ND [address] [place] [address] Referring Provider 05/12/24 Dennis Stephens MD [address] [place] [address] Referring Provider Urology 05/12/24 Terrell Morgan MD 6 [place] [address] Ophthalmology 05/12/24 Liz Bowser Physician Podiatry 04/27/24 documented as of this encounter
--- OUTSIDE RECORDS SUMMARY | 2025-03-10 13:23 | XMS_ITS | Encounter Summary ---
Author Organization [facility] Address [address] [place] [address] Care Team Providers Care Hot Strip Mill Supervisor Name Role Phone Laurie Guzman PA-C Primary Care Provi walter Bernie Christianson MD Unavailable [phone] Soham Pearce MD Unavailable [phone] Noe Huffman MD Unavailable [phone] Nadeem Garcia ND Unavailable [phone] Dennis Stephens MD Unavailable Unavailable Terrell Morgan MD Unavailable [phone] Encounter Details Date Type Department Care Team (Late st Contact Info) Description 11/09/2024 Scanned Document [facility] [address] [place] [address] Otolaryngology, Scan Social History Tobacco Use Types Packs/Day [...] Description 05/13/2025 10:30 AM EST Office Visit [facility] 100 [facility] [address] [place] [address] Laurie Guzman PA-C 100 [place] [address] documented as of this encounter Visit Diagnoses Not on filedocumented in this encounter Care Teams Hot Strip Mill Supervisor Relationship Specialty Start Date End Date Laurie Guzman PA-C 100 [place] [address] PCP - General Internal Medicine 07/23/23 Bernie Christianson MD [address] [place] [address] Referring Provider 05/12/24 Soham Pearce MD [address] [place] [address] [address] [place] [address] Physician Otolaryngology 05/12/24 Noe Huffman MD [address] [place] [address] Medicine Hospitalist 05/12/24 Nadeem Garcia ND [address] [place] [address] Referring Provider 05/12/24 Dennis Stephens MD [address] [place] [address] Referring Provider Urology 05/12/24 Terrell Morgan MD 6[address] [place] [address] Ophthalmology 05/12/24 Liz Bowser Physician Podiatry 04/27/24 documented as of this encounter
--- OUTSIDE RECORDS SUMMARY | 2025-03-10 13:23 | XMS_ITS | Encounter Summary ---
Author Organization [facility] Address [address] [place] [address] Care Team Providers Care Oceanology Teacher Name Role Phone Laurie Guzman PA-C Primary Care Provi walter Bernie Christianson MD Unavailable [phone] Soham Pearce MD Unavailable [phone] Noe Huffman MD Unavailable [phone] Nadeem Garcia ND Unavailable [phone] Dennis Stephens MD Unavailable Unavailable Terrell Morgan MD Unavailable [phone] Encounter Details Date Type Department Care Team (Late st Contact Info) Description 01/22/2024 Scanned Document [facility] [address] [place] [address] Laurie Guzman PA-C [address] [place] [address] Social History Tobacco Use Types Packs/Day Years [...] Office Visit [facility] 100 [facility] [address] [place] [address] Laurie Guzman PA-C 100 [place] [address] documented as of this encounter Visit Diagnoses Not on filedocumented in this encounter Care Teams Oceanology Teacher Relationship Specialty Start Date End Date Laurie Guzman PA-C 100 [place] [address] PCP - General Internal Medicine 07/23/23 Bernie Christianson MD [address] [place] [address] Referring Provider 05/12/24 Soham Pearce MD [address] [place] [address] 100 [place] [address] Physician Otolaryngology 05/12/24 Noe Huffman MD [address] [place] [address] Medicine Hospitalist 05/12/24 Nadeem Garcia ND [address] [place] [address] Referring Provider 05/12/24 Dennis Stephens MD [address] [place] [address] Referring Provider Urology 05/12/24 Terrell Morgan MD [address] [place] [address] Ophthalmology 05/12/24 Liz Bowser Physician Podiatry 04/27/24 documented as of this encounter
--- OUTSIDE RECORDS SUMMARY | 2025-03-10 13:23 | XMS_ITS | Encounter Summary ---
Author Organization [facility] Address [address] [place] [address] Care Team Providers Care Fire Support Specialist Name Role Phone Laurie Guzman PA-C Primary Care Provi walter Bernie Christianson MD Unavailable [phone] Soham Pearce MD Unavailable [phone] Noe Huffman MD Unavailable [phone] Nadeem Garcia ND Unavailable [phone] Dennis Stephens MD Unavailable Unavailable Terrell Morgan MD Unavailable [phone] Encounter Details Date Type Department Care Team (Late st Contact Info) Description 10/01/2023 Scanned Document [address] [phone] Primary Care, Scan Social History Tobacco Use Types Packs/Day [...] Description 05/13/2025 10:30 AM EST Office Visit [address] [address] Laurie Guzman PA-C [address] [place] [address] documented as of this encounter Visit Diagnoses Not on filedocumented in this encounter Care Teams Fire Support Specialist Relationship Specialty Start Date End Date Laurie Guzman PA-C [address] [place] [address] PCP - General Internal Medicine 07/23/23 Bernie Christianson MD [address] [place] [address] Referring Provider 05/12/24 Soham Pearce MD [address] [place] [address] [address] [place] [address] Physician Otolaryngology 05/12/24 Noe Huffman MD [address] [place] [address] Medicine Hospitalist 05/12/24 Nadeem Garcia ND [address] [place] [address] Referring Provider 05/12/24 Dennis Stephens MD [address] [place] [address] Referring Provider Urology 05/12/24 Terrell Morgan MD 6[address] [place] [address] Ophthalmology 05/12/24 Liz Bowser Physician Podiatry 04/27/24 documented as of this encounter
--- OUTSIDE RECORDS SUMMARY | 2025-03-10 13:23 | XMS_ITS | Encounter Summary ---
Author Organization [facility] Address [address] [place] [address] Care Team Providers Care Jockey Valet Name Role Phone Laurie Guzman PA-C Primary Care Provi walter Bernie Christianson MD Unavailable [phone] Soham Pearce MD Unavailable [phone] Noe Huffman MD Unavailable [phone] Nadeem Garcia ND Unavailable [phone] Dennis Stephens MD Unavailable Unavailable Terrell Morgan MD Unavailable [phone] Encounter Details Date Type Department Care Team (Late st Contact Info) Description 01/16/2024 Scanned Document [facility] [address] [place] [address] Urology, Scan Social History Tobacco Use Types Packs/Day [...] Description 05/13/2025 10:30 AM EST Office Visit [address] [place] [address] Luarie Guzman PA-C [address] [place] [address] documented as of this encounter Visit Diagnoses Not on filedocumented in this encounter Care Teams Jockey Valet Relationship Specialty Start Date End Date Laurie Guzman PA-C [address] [place] [address] PCP - General Internal Medicine 07/23/23 Bernie Christianson MD [address] [place] [address] Referring Provider 05/12/24 Soham Pearce MD [address] [place] [address] [address] [place] [address] Physician Otolaryngology 05/12/24 Noe Huffman MD [address] [place] [address] Medicine Hospitalist 05/12/24 Ndaeem Garcia ND [address] [place] [address] Referring Provider 05/12/24 Dennis Stephens MD [address] [place] [address] Referring Provider Urology 05/12/24 Terrell Morgan MD [address] [place] [address] Ophthalmology 05/12/24 Liz Bowser Physician Podiatry 04/27/24 documented as of this encounter
--- OUTSIDE RECORDS SUMMARY | 2025-03-10 13:23 | XMS_ITS | Encounter Summary ---
Author Organization [facility] Address [address] [place] [address] Care Team Providers Care Claims Associate Name Role Phone Laurie Guzman PA-C Primary Care Provi walter Bernie Christianson MD Unavailable [phone] Soham Pearce MD Unavailable [phone] Noe Huffman MD Unavailable [phone] Nadeem Garcia ND Unavailable [phone] Dennis Stephens MD Unavailable Unavailable Terrell Morgan MD Unavailable [phone] Encounter Details Date Type Department Care Team (Late st Contact Info) Description 07/23/2024 Scanned Document [facility] [address] [place] [address] Urology, Scan Social History Tobacco Use Types [...] Description 05/13/2025 10:30 AM EST Office Visit [place] [address] [facility] [address] [place] [address] Laurie Guzman PA-C 100 [place] [address] documented as of this encounter Visit Diagnoses Not on filedocumented in this encounter Care Teams Claims Associate Relationship Specialty Start Date End Date Laurie Guzman PA-C 100 [place] [address] PCP - General Internal Medicine 07/23/23 Bernie Christianson MD 100 [place] [address] Referring Provider 05/12/24 Soham Pearce MD [address] [place] [address] 100 [place] [address] Physician Otolaryngology 05/12/24 Noe Huffman MD [address] [place] [address] Medicine Hospitalist 05/12/24 Nadeem Garcia ND [address] [place] [address] Referring Provider 05/12/24 Dennis Stephens MD [address] [place] [address] Referring Provider Urology 05/12/24 Terrell Morgan MD [address] [place] [address] Ophthalmology 05/12/24 Liz Bowser Physician Podiatry 04/27/24 documented as of this encounter
--- OUTSIDE RECORDS SUMMARY | 2025-03-10 13:23 | XMS_ITS | Encounter Summary ---
Author Organization [facility] Address [address] [place] [address] [place] [address] Phone Care Team Providers Care Machine Baster Name Role Phone Bear Parsons MD Primary Care Provider [phone] Encounter Details Date Type Department Care Team (Latest Contact Info) Description 04/01/2019 Transcribe Orders [facility] [address] [place] [address] Portillo Hernandez MD [address] [place] [address], [address] [address] [email or web address] Prostate cancer screening (Primary Dx) Social History [...] PM EDT) PSA, TOTAL 5.2(H) <=4.5 ng/mL [facility] FREE PSA 1.1 ng/mL [facility] FREE/TOT PSA RATIO 0.21 ratio M [facility] Comment: (NOTE) When total [...] MD LAB BLOOD ORDERABLES Final Resu lt [facility] [address] [place] [address] documented in this encounter Visit Diagnoses Diagnosis Prostate cancer screening- Primary Special screening for malignant neoplasm of prostate documented in this encounter Care Teams Machine Baster Relationship Specialty Start Date End Date Bear Parsons MD [address] [address] PCP - General Internal Medicine 04/01/19 documented as of this encounter Additional Source Comments The information contained in this document represents components of the legal health record. It is not the complete legal health record.[facility]
--- OUTSIDE RECORDS SUMMARY | 2025-03-10 13:23 | XMS_ITS | Patient Health Record ---
Author Organization [facility] Address [address] [place] [address] Care Team Providers Care Personal Injury Paralegal Name Role Phone Laurie Manjarrez PA-C Primary Care Provider Nicole acBrenda Cole Unavailable [phone] Allergies Allergen (clinical drug ingredient) Drug/Non Drug [...] Problem Acquired hammer toe of right foot (23064651403 56470) Other hammer toe(s) (acquired), right foot (M20.41) Active confirmed Problem Acquired hammer toe of left foot (64287103412 39782) Other hammer toe(s) (acquired), left foot (M20.42) [...] Ulcer of toe of right foot (disorder) (29003491622 489898) Skin ulcer of toe of right foot, limited to breakdown of skin (L97.511) Active confirmed Response to treatment Problem Ulcer of toe of left foot (disorder) (16753772275 229528) Skin ulcer of toe of left foot, limited to breakdown of skin (L97.521) Active confirmed Response to treatment Vital Signs Height 5ft6in in 04/16/2024 Weight 225 lbs 04/16/2024 BMI 36.31 kg/m2 04/16/2024 Procedures Procedure Date Ordered Date Performed Result Body Sit e 77698-Jgxeuzzx Plate 04/03/2024 N/A 38431-Fmkjztob Plate Each Additional 04/03/2024 N/A 47467- Debride <25 sq cm 04/16/2024 N/A Encounters Encounter Location Date Provider Diagnosis [facility] [address] 04/03/2024 Brenda Black Ingrown nail L60.0 ; Toe pain, left M79.675 and Pain of toe of right foot M79.[address] [facility] [address] [address] 04/16/2024 Brenda Black Skin ulcer of toe of left foot, limited to breakdown of skin L97.521 and Skin ulcer of toe of right foot, limited to breakdown of skin L97.[address] [facility] [address] 03/30/2024 Brenda Black Assessments Encounter Date Diagnosis [...] Treatment Pending Test Test Name Order Date 86546-Qnskyxnb Plate 06/21/2022 62603-Jitqjnom Plate 04/03/2024 26720-Kqpcjeme Plate Each Additional 09/2023 58742-Anvwoafa Plate Each Additional 64522- Debride <25 sq cm 06/21/2022 29697- Debride <25 sq cm 07/12/2022 84206- Debride <25 sq cm 04/16/2024 Insurance Providers Payer Name Payer Address Payer Phone Subscriber Number Group Number Insured Name Patient Relationship to Insured Coverage Start Date Coverage End Date Medicare National [employer] [address] [facility] [place] [address] [id number] Alexander Uriostegui Self - patient is the insured SVAS [employer] [facility] [address] [place] [address] [id number] Alexander Uriostegui Self - patient is the insured Medical (General) History Medical History History ICD Code Hepatitis High blood pressure Measles Mumps Chicken pox Back,Hip,and Knee pain covid-19 Diverticulosis Lung disease (ILD) Sciatica Pulmonary fibrosis Surgical History Surgery Date(Month/Year) hernia 2009 meniscus 2020 carpal tunnel surgery, bilateral 2020
--- OUTSIDE RECORDS SUMMARY | 2025-03-10 13:23 | XMS_ITS | Encounter Summary ---
Author Organization [facility] Address [address] [place] [address] Care Team Providers Care Dialer Name Role Phone Laurie Guzman PA-C Primary Care Provi walter Bernie Christianson MD Unavailable [phone] Soham Pearce MD Unavailable [phone] Noe Huffman MD Unavailable [phone] Nadeem Garcia ND Unavailable [phone] Dennis Stephens MD Unavailable Unavailable Terrell Morgan MD Unavailable [phone] Encounter Details Date Type Department Care Team (Late st Contact Info) Description 07/25/2023 Scanned Document [facility] Internal Medicine, Scan Social History Tobacco Use Types Packs/Day [...] Description 05/13/2025 10:30 AM EST Office Visit [address] [place] [address] Laurie Guzman PA-C [address] [place] [address] documented as of this encounter Visit Diagnoses Not on filedocumented in this encounter Care Teams Dialer Relationship Specialty Start Date End Date Laurie Guzman PA-C [address] [place] [address] PCP - General Internal Medicine 07/23/23 Bernie Christianson MD [address] [place] [address] Referring Provider 05/12/24 Soham Pearce MD [address] [place] [address] [address] [place] [address] Physician Otolaryngology 05/12/24 Noe Huffman MD [address] [place] [address] Medicine Hospitalist 05/12/24 Nadeem Garcia ND 800 [place] [address] Referring Provider 05/12/24 Dennis Stephens MD [address] [place] [address] Referring Provider Urology 05/12/24 Terrell Morgan MD [address] [place] [address] Ophthalmology 05/12/24 Liz Bowser Physician Podiatry 04/27/24 documented as of this encounter
--- OUTSIDE RECORDS SUMMARY | 2025-03-10 13:23 | XMS_ITS | Encounter Summary ---
Author Organization [facility] Address [address] [place] [address] Care Team Providers Care Vocational Examiner Name Role Phone Laurie Guzman PA-C Primary Care Provi walter Bernie Christianson MD Unavailable [phone] Soham Pearce MD Unavailable [phone] Noe Huffman MD Unavailable [phone] Nadeem Garcia ND Unavailable [phone] Dennis Stephens MD Unavailable Unavailable Terrell Morgan MD Unavailable [phone] Reason for Visit * Reason Comments Advice Only Encounter Details Date Type Department Care Team ([facility] st Contact Info) Description 07/03/[address] [address] Laurie Guzman PA-C [address] [place] [address] Advice Only Social History Tobacco Use Types Packs/Day Years [...] PM EST documented as of this encounter Miscellaneous Notes * Telephone Encounter - Monet Riggins - 07/03/2024 2:36 PM EST Vm left documented in this encounter Plan of Treatment Upcoming Encounters Date Type Department Care Team (Late st Contact Info) Description 05/13/2025 10:30 AM EST Office Visit [address] [place] [address] Laurie Guzman PA-C [address] [place] [address] documented as of this encounter Visit Diagnoses Not on filedocumented in this encounter Care Teams Vocational Examiner Relationship Specialty Start Date End Date Laurie Guzman PA-C 100 [place] [address] PCP - General Internal Medicine 07/23/23 Bernie Christianson MD 100 [place] [address] Referring Provider 05/12/24 Soham Pearce MD [address] [place] [address] 100 [place] [address] Physician Otolaryngology 05/12/24 Noe Huffman MD [address] [place] [address] Medicine Hospitalist 05/12/24 Nadeem Garcia ND 800 [place] [address] Referring Provider 05/12/24 Dennis Stephens MD [address] [place] [address] Referring Provider Urology 05/12/24 Terrell Morgan MD [address] [place] [address] Ophthalmology 05/12/24 Liz Bowser Physician Podiatry 04/27/24 documented as of this encounter
--- OUTSIDE RECORDS SUMMARY | 2025-03-10 13:23 | XMS_ITS | Encounter Summary ---
Author Organization [facility] Address [address] [place] [address] Care Team Providers Care Ocean Freight Agent Name Role Phone Laurie Guzman PA-C Primary Care Provi walter Bernie Christianson MD Unavailable [phone] Soham Pearce MD Unavailable [phone] Noe Huffman MD Unavailable [phone] Nadeem Garcia ND Unavailable [phone] Dennis Stephens MD Unavailable Unavailable Terrell Morgan MD Unavailable [phone] Encounter Details Date Type Department Care Team (Late st Contact Info) Description 10/10/2023 Scanned Document [facility] ENDOCRINOLOGY SCAN Endocrinology, Scan Social History [...] Description 05/13/2025 10:30 AM EST Office Visit [address] [place] [address] Laurie Guzman PA-C [address] [place] [address] [place] [address] documented as of this encounter Visit Diagnoses Not on filedocumented in this encounter Care Teams Ocean Freight Agent Relationship Specialty Start Date End Date Laurie Guzman PA-C [address] [place] [address] PCP - General Internal Medicine 07/23/23 Bernie Christianson MD [address] [place] [address] Referring Provider 05/12/24 Soham Pearce MD [address] [place] [address] [address] [place] [address] Physician Otolaryngology 05/12/24 Noe Huffman MD [address] [place] [address] Medicine Hospitalist 05/12/24 Nadeem Garcia ND [address] [place] [address] Referring Provider 05/12/24 Dennis Stephens MD [address] [place] [address] Referring Provider Urology 05/12/24 Terrell Morgan MD [address] [place] [address] Ophthalmology 05/12/24 Liz Bowser Physician Podiatry 04/27/24 documented as of this encounter
--- OUTSIDE RECORDS SUMMARY | 2025-03-10 13:23 | XMS_ITS | Encounter Summary ---
Author Organization [facility] Address [address] [place] [address] Care Team Providers Care Fruit Farmworker Name Role Phone Laurie Guzman PA-C Primary Care Provi walter Bernie Crhistianson MD Unavailable [phone] Soham Pearce MD Unavailable [phone] Noe Huffman MD Unavailable [phone] Nadeem Garcia ND Unavailable [phone] Dennis Stephens MD Unavailable Unavailable Terrell Morgan MD Unavailable [phone] Encounter Details Date Type Department Care Team (Late st Contact Info) Description 08/18/2024 Scanned Document [facility] [address] [place] [address] Otolaryngology, Scan Social History Tobacco Use Types [...] Description 05/13/2025 10:30 AM EST Office Visit [facility] 100 [facility] [address] [place] [address] Laurie Guzman PA-C 100 [place] [address] documented as of this encounter Visit Diagnoses Not on filedocumented in this encounter Care Teams Fruit Farmworker Relationship Specialty Start Date End Date Laurie Guzman PA-C 100 [place] [address] PCP - General Internal Medicine 07/23/23 Bernie Christianson MD [address] [place] [address] Referring Provider 05/12/24 Soham Pearce MD [address] [place] [address] [address] [place] [address] Physician Otolaryngology 05/12/24 Noe Huffman MD [address] [place] [address] Medicine Hospitalist 05/12/24 Nadeem Garcia ND [address] [place] [address] Referring Provider 05/12/24 Dennis Stephens MD [address] [place] [address] Referring Provider Urology 05/12/24 Terrell Morgan MD [address] [place] [address] Ophthalmology 05/12/24 Liz Bowser Physician Podiatry 04/27/24 documented as of this encounter
--- OUTSIDE RECORDS SUMMARY | 2025-03-10 13:23 | XMS_ITS | Clinical Summary ---
Author Organization [facility] Address [address] [place] [address] Phone Care Team Providers Care Shell Sieve Operator Name Role Phone Bear Parsons MD Primary Care Provider Social History Tobacco Use Types Packs/Day Years [...] Medical Devices Not on file Care Teams Shell Sieve Operator Relationship Specialty Start Date End Date Bear Parsons MD [address] [address] PCP - General Internal Medicine 04/01/19 Additional Source Comments The information contained in this document represents components of the legal health record. It is not the complete legal health record.[facility]
--- OUTSIDE RECORDS SUMMARY | 2025-03-10 13:23 | XMS_ITS | Encounter Summary ---
Author Organization [facility] Address [address] [place] [address] Care Team Providers Care Furnace Mason Name Role Phone Laurie Guzman PA-C Primary Care Provi walter Bernie Christianson MD Unavailable [phone] Soham Pearce MD Unavailable [phone] Noe Huffman MD Unavailable [phone] Nadeem Garcia ND Unavailable [phone] Dennis Stephens MD Unavailable Unavailable Terrell Morgan MD Unavailable Encounter Details Date Type Department Care Team (Late st Contact Info) Description 01/16/2024 Scanned Document [facility] [address] [place] [phone] Laurie Guzman PA-C [address] [place] [address] Social History Tobacco Use Types [...] [facility] 100 [facility] [address] [place] [address] Laurie Guzman PA-C [address] [place] [address] documented as of this encounter Visit Diagnoses Not on filedocumented in this encounter Care Teams Furnace Mason Relationship Specialty Start Date End Date Laurie Guzman PA-C [address] [place] [address] PCP - General Internal Medicine 07/23/23 Bernie Christianson MD [address] [place] [address] Referring Provider 05/12/24 Soham Pearce MD [address] [place] [address] 100 [place] [address] Physician Otolaryngology 05/12/24 Noe Huffman MD [address] [place] [address] Medicine Hospitalist 05/12/24 Nadeem Garcia ND [address] [place] [address] Referring Provider 05/12/24 Dennis Stephens MD [address] [place] [address] Referring Provider Urology 05/12/24 Terrell Morgan MD [address] [place] [address] Ophthalmology 05/12/24 Liz Bowser Physician Podiatry 04/27/24 documented as of this encounter
--- OUTSIDE RECORDS SUMMARY | 2025-03-10 13:24 | XMS_ITS | Encounter Summary ---
Author Organization [facility] Address [address] [place] [address] Care Team Providers Care Administrative Secretary Name Role Phone Laurie Guzman PA-C Primary Care Provi walter Bernie Christianson MD Unavailable [phone] Soham Pearce MD Unavailable [phone] Noe Huffman MD Unavailable [phone] Nadeem Garcia ND Unavailable [phone] Dennis Stephens MD Unavailable Unavailable Terrell Morgan MD Unavailable [phone] Encounter Details Date Type Department Care Team (Late st Contact Info) Description 05/20/2024 Scanned Document [facility] OTOLARYNGOLGY SCAN Otolaryngology, Scan Social History Tobacco Use Types [...] Description 05/13/2025 10:30 AM EST Office Visit [address] [place] [address] Laurie Guzman PA-C [address] [place] [address] documented as of this encounter Visit Diagnoses Not on filedocumented in this encounter Care Teams Administrative Secretary Relationship Specialty Start Date End Date Laurie Guzman PA-C [address] [place] [address] PCP - General Internal Medicine 07/23/23 Bernie Christianson MD [address] [place] [address] Referring Provider 05/12/24 Soham Pearce MD [address] [place] [address] [address] [place] [address] Physician Otolaryngology 05/12/24 Noe Huffman MD [address] [place] [address] Medicine Hospitalist 05/12/24 Nadeem Garcia ND [address] [place] [address] Referring Provider 05/12/24 Dennis Stephens MD [address] [place] [address] Referring Provider Urology 05/12/24 Terrell Morgan MD [address] [place] [address] Ophthalmology 05/12/24 Liz Bowser Physician Podiatry 04/27/24 documented as of this encounter
--- OUTSIDE RECORDS SUMMARY | 2025-03-10 13:24 | XMS_ITS | Encounter Summary ---
Author Organization [facility] Address [address] [place] [address] Care Team Providers Care Brake Rider Name Role Phone Laurie Guzman PA-C Primary Care Provi walter Bernie Christianson MD Unavailable [phone] Soham Pearce MD Unavailable [phone] Noe Huffman MD Unavailable [phone] Nadeem Garcia ND Unavailable [phone] Dennis Stephens MD Unavailable Unavailable Terrell Morgan MD Unavailable [phone] Encounter Details Date Type Department Care Team (Late st Contact Info) Description 01/15/2025 Scanned Document [facility] [address] [place] [address] Urology, Scan Social History Tobacco Use Types [...] Description 05/13/2025 10:30 AM EST Office Visit [place] [address] [facility] [address] [place] [address] Laurie Guzman PA-C 100 [place] [address] documented as of this encounter Visit Diagnoses Not on filedocumented in this encounter Care Teams Brake Rider Relationship Specialty Start Date End Date Laurie Guzman PA-C 100 [place] [address] PCP - General Internal Medicine 07/23/23 Bernie Christianson MD [address] [place] [address] Referring Provider 05/12/24 Soham Pearce MD [address] [place] [address] [address] [place] [address] Physician Otolaryngology 05/12/24 Noe Huffman MD [address] [place] [address] Medicine Hospitalist 05/12/24 Nadeem Garcia ND [address] [place] [address] Referring Provider 05/12/24 Dennis Stephens MD [address] [place] [address] Referring Provider Urology 05/12/24 Terrell Morgan MD [address] [place] [address] Ophthalmology 05/12/24 Liz Bowser Physician Podiatry 04/27/24 documented as of this encounter
--- OUTSIDE RECORDS SUMMARY | 2025-03-10 13:24 | XMS_ITS | Encounter Summary ---
Author Organization [facility] Address [address] [place] [address] Care Team Providers Care Stud Sheep Farmer Name Role Phone Laurie Guzman PA-C Primary Care Provi walter Bernie Christianson MD Unavailable [phone] Soham Pearce MD Unavailable [phone] Noe Huffman MD Unavailable [phone] Nadeem Garcia ND Unavailable [phone] Dennis Stephens MD Unavailable Unavailable Terrell Morgan MD Unavailable [phone] Encounter Details Date Type Department Care Team (Late st Contact Info) Description 01/16/2024 Scanned Document [facility] GASTRO SCAN Bernie Christianson MD [address] [place] [address] Social History Tobacco Use Types Packs/Day Years [...] Description 05/13/2025 10:30 AM EST Office Visit [facility] 100 [facility] [address] [place] [address] Laurie Guzman PA-C [address] [place] [address] documented as of this encounter Visit Diagnoses Not on filedocumented in this encounter Care Teams Stud Sheep Farmer Relationship Specialty Start Date End Date Laurie Guzman PA-C [address] [place] [address] PCP - General Internal Medicine 07/23/23 Bernie Christianson MD [address] [place] [address] Referring Provider 05/12/24 Soham Pearce MD [address] [place] [address] [address] [place] [address] Physician Otolaryngology 05/12/24 Noe Huffman MD [address] [place] [address] Medicine Hospitalist 05/12/24 Nadeem Garcia ND [address] [place] [address] Referring Provider 05/12/24 Dennis Stephens MD [address] [place] [address] Referring Provider Urology 05/12/24 Terrell Morgan MD [address] [place] [address] Ophthalmology 05/12/24 Liz Bowser Physician Podiatry 04/27/24 documented as of this encounter
--- OUTSIDE RECORDS SUMMARY | 2025-03-10 13:24 | XMS_ITS | Clinical Summary ---
Author Organization [facility] Address [address] [place] [address] Care Team Providers Care Needle Leader Name Role Phone Soham Pearce MD Primary [...] DAY 90 0 3 Active Nystatin (MYCOSTATIN) 828168 UNIT/ML suspension TAKE 5 ML SWISH AND [...] age to complete this topic Care Teams Needle Leader Relationship Specialty Start Date End Date Soham Pearce MD [address] [facility] [address] [place] [address] PCP - General 02/04/23
--- OUTSIDE RECORDS SUMMARY | 2025-03-10 13:24 | XMS_ITS | Clinical Summary ---
Author Organization [facility] Address [address] [place] [address] Care Team Providers Care Lens Matcher Name Role Phone Laurie Guzman PA-C Primary Care Provi walter Bernie Christianson MD Unavailable [phone] Soham Pearce MD Unavailable [phone] Noe Huffman MD Unavailable [phone] Nadeem Garcia ND Unavailable [phone] Dennis Stephens MD Unavailable Unavailable Terrell Morgan MD Unavailable [phone] Allergies Active Allergy Reactions Criticality Noted Date Comments Lisinopril Other (See Comments) 04/04/2022 cough Medications finasteride (PROSCAR) 5 MG tablet Take 1 tablet (5 mg total) by mouth daily. 07/01/2023 Active aspirin enteric coated (ECOTRIN LOW STRENGTH) 81 MG EC tablet Take 1 tablet (81 mg total) by mouth daily. Active folic acid (FOLVITE) 1 MG tablet Take 1 tablet (1 mg total) by mouth daily. Active Cyanocobalamin (VITAMIN B-12 PO) Take 1,000 mcg by mouth. Active lactobacillus (CULTURELLE) Cap capsule Take by mouth daily. Active alfuzosin (UROXATRAL) 10 MG 24 hr tablet Take 1 tablet (10 mg total) by mouth daily. Active albuterol (PROVENTIL HFA; VENTOLIN HFA) 108 (90 Base) MCG/ACT inhaler Inhale 2 puffs 4 times daily (every 6 hours) as needed. Active citalopram (CeleXA) 20 MG tabletIndication s:Primary hypertension,Rec urrent major depressive disorder, in partial remission,Type 2 diabetes mellitus without complication, without long-term current use of insulin (HCC) TAKE 1 TABLET BY MOUTH EVERY DAY 90 tablet 3 11/26/2024 Active atorvastatin (LIPITOR) 10 MG tabletIndication s:Primary hypertension,Rec urrent major depressive disorder, in partial remission,Type 2 diabetes mellitus without complication, without long-term current use of insulin (HCC) TAKE 1 TABLET BY MOUTH EVERY DAY 90 tablet 3 11/26/2024 Active losartan (COZAAR) 25 MG tabletIndication s:Primary hypertension,Rec urrent major depressive disorder, in partial remission,Type 2 diabetes mellitus without complication, without long-term current use of insulin (HCC) TAKE 1 TABLET (25 MG TOTAL) BY MOUTH DAILY. 90 tablet 3 11/26/2024 Active Active Problems Problem Noted Date Diagnosed Date BPH (benign prostatic hyperplasia) 07/23/2023 Colon polyps 07/23/2023 Overview (07/26/2023): Follows with [facility]. Was supposed to have his colonoscopy in May 2023. We do not have the report. Type 2 diabetes mellitus 07/23/2023 Assessment & Plan (12/01/2024 11:59 AM EDT): Diet controlled. A1c at goal. Encourage diet and exercise. Assessment & Plan (10/28/2024 4:24 PM EDT): Managed with diet. A1c is excellent today at 5.6. Continue to watch diet. We will recheck A1c in 6 months. Elevated PSA 07/23/2023 Overview (07/26/2023): Status post TRUSP biopsy when he 22; follows with [facility] urology Dr. Mcneill. No evidence of malignancy. Following PSA every 6-months.. Stenosis of esophagus 07/23/2023 Overview (07/26/2023): History of dilatation. Follows with [facility]. Major depressive disorder in partial remission 0 07/23/2023 AHMET (obstructive sleep apnea) 07/23/2023 Renal mass 07/23/2023 Pulmonary nodule 07/23/2023 Pulmonary fibrosis 07/23/2023 Hyperlipidemia 07/23/2023 Hypertension 07/23/2023 Assessment & Plan (12/01/2024 11:59 AM EDT): Compliant with blood pressure medication. No change in meds. Will continue to follow. Assessment & Plan (10/28/2024 4:24 PM EDT): Pressure slightly elevated in the office today. Patient will monitor at home. Ideally we want his blood pressure less than 130/80. Morbid obesity 07/23/2023 Hypogonadism in male 07/23/2023 Overview (07/26/2023): Follows with Endo; not on replacement History of tongue cancer 07/23/2023 Overview (07/26/2023): 2022. Stage I, T1 N0 M0, poorly differentiated squamous cell carcinoma, p16 positive, of the right base of tongue. He underwent radiotherapy as well as chemotherapy. Recent PET scan at [facility] on March 2023 showed no evidence of head and neck cancer recurrence. Follow-up with radiation oncology at [facility]. Follows with Soham Pearce. Who is his ENT. Assessment & Plan (12/01/2024 11:59 AM EDT): Squamous cell carcinoma at the base of the tongue. Treated with radiation and chemotherapy therapy in November 2022. Following closely with ENT. No recurrence. Patient will follow-up in 5 months for his annual wellness. Mixed simple and mucopurulent chronic bronchitis 07/23/2023 Overview (07/26/2023): Follows with Dr. Huffman; O2 at night. Resolved Problems Problem Noted Date Diagnosed Date Resolved Date Diverticulitis 07/26/2023 01/29/2024 Overview (07/26/2023): Last episode March 2023. History of COVID-19 07/23/2023 01/29/20 Overview (07/26/2023): Was vented; severe respiratory failure; bilateral COVID-pneumonia; 05/2022 Encounters Date Type Department Care Team Description 03/03/2025 Orders Only [facility] [address] [facility] [place] [address] Orthopedic Surgery, Scan 02/23/2025 10:45 AM EDT Office Visit [address] [place] [address] Laurie Guzman PA-C Acute pain of left knee (Primary Dx) 02/23/2025 Travel 01/27/2025 Scanned Document [facility] [address] [facility] [place] [address] Orthopedic Surgery, Scan 01/15/2025 Scanned Document [facility] [address] [facility] [place] [address] Urology, Scan 01/05/2025 Scanned Document [facility] [address] [facility] [place] [address] Orthopedic Surgery, Scan from Last 3 Months Immunizations Immunization Administration Dates Next Due Influenza High-Dose Trivalen t,(FLUZONE HIGH-DOSE), Perservative Free IM 0.5 mL 65 years and older 05/12/2024 Influenza, Quadrivalent (FLU AD) Adjuvanted Preservative Free IM 65 years and older 06/20/2023 Pneumococcal Conjugate 20-Valent 06/20/2023 Tdap 04/25/2017 Family History Medical History Relation Name Comments Hypertension Brother Lung cancer Brother Coronary artery disease Father Heart failure Father Pulmonary Hypertension Father Relation Name Status Comments Brother Father Social History Tobacco Use Types Packs/Day Years Used Date Smoking Tobacco: Never Smokeless Tobacco: Never Tobacco Cessation:Counseling Given: Not [...] Orientation Heterosexual (straight) 07/23 1:30 PM EST Last Filed Vital Signs Vital Sign Reading Time Taken Comments Blood Pressure 130/80 02/23/2025 1:01 PM EDT Pulse 98 02/23/2025 10:56 AM EDT Temperature 26.1 C (79 F) 02/23/2025 10:56 AM EDT Respiratory Rate 17 02/23/2025 10:56 AM EDT Oxygen Saturation 97% 02/23/2025 10:56 AM EDT Inhaled Oxygen Concentration - - Weight 108 kg (237 lb) 02/23/2025 10:56 AM EDT Height 162.6 cm (5' 4 ) 02/23/2025 10:56 AM EDT Body Mass Index 40.68 02/23/2025 10:56 AM EDT Plan of Treatment Upcoming Encounters Date Type Department Care Team (Late st Contact Info) Description 05/13/2025 10:30 AM EST Office Visit [facility] 100 [facility] 101 [place] [address] Laurie Guzman PA-C [address] [place] [address] Health Maintenance Due Date Last Done Comments Advance Care Planning 1955 Hepatitis C Virus Screening 1954 Creatinine with GFR 1964 Foot Exam 1964 Lipid Panel 1964 Ophthalmology Exam 1964 Microalbumin/Creatinine Ratio Urine 1972 Physical 1972 Zoster (Shingles) Vaccine (1 of 2) 2004 RSV Vaccine 60 years and older and Patients (1 - Risk 60-74 years 1-dose series) 2014 Influenza Vaccine 01/29/2025 05/12/2024, 06/20/2023 COVID-19 Vaccine ( season) 2025 Hemoglobin A1C 04/29/2025 10/28/2024, 04/01, 01/29/2024, Additional history exists Annual Wellness Visit 05/13/2025 05/12/2024 DTaP/Tdap/Td Vaccines (2 - Td or Tdap) 04/25/2027 04/25/2017 Colonoscopy 07/29/2028 07/29/2023 (Prev iously Completed) Pneumococcal Vaccines 50+ Completed 06/20/2023 Hepatitis B Vaccines Aged Out No long er eligible based on patient's age to complete this topic Procedures Procedure Name Priority Date/Time Associated Diagnosis Comments MRI EXTERNAL RESULT Routine 03/02/2025 6 :35 AM EDT POCT GLYCOSYLATED HEMOGLOBIN (HGB A1C) Routine 10/28/2024 3:44 PM EDT Type 2 diabetes mellitus without complication, without long-term current use of insulin (HCC) from Last 3 Months or Most Recently Relevant to Health Maintenance Results * MRI External Result (03/02/2025 6:35 AM EDT) Anatomical Region Laterality Modality Magnetic Resonan ce us Scan Orthopedic Surgery IMG MRI ORDERABLES Edite d Result - Final * POCT Glycosylated Hemoglobin (Hb A1C) (10/28/2024 3:44 PM EDT) Hemoglobin A1C 5.6 4.0 - 6.0 % Lot Number [id number] Red Leader Pass Pass Blood 10/28/2024 3:44 PM EDT Laurie Guzman PA-C POINT OF CARE TEST ORDERABLES Final Result from Last 3 Months or Most Recently Relevant to Health Maintenance Insurance MEDICARE PART A & B [place] [id number] Care Teams Lens Matcher Relationship Specialty Start Date End Date Laurie Guzman PA-C [address] [place] [address] PCP - General Internal Medicine 07/23/23 Bernie Christianson MD [address] [place] [address] Referring Provider 05/12/24 Soham Pearce MD [address] [place] [address] [address] [place] [address] Physician Otolaryngology 05/12/24 Noe Huffman MD [address] [place] [address] Medicine Hospitalist 05/12/24 Nadeem Garcia ND 800 [place] [address] Referring Provider 05/12/24 Dennis Stephens MD [address] [place] [address] Referring Provider Urology 05/12/24 Terrell Morgan MD [address] [place] [address] Ophthalmology 05/12/24 Liz Bowesr Physician Podiatry 04/27/24
--- OUTSIDE RECORDS SUMMARY | 2025-03-10 13:24 | XMS_ITS | Encounter Summary ---
Author Organization [facility] Address [address] [place] [address] Care Team Providers Care Director Of User Experience Name Role Phone Laurie Guzman PA-C Primary Care Provi walter Bernie Christianson MD Unavailable [phone] Soham Pearce MD Unavailable [phone] Noe Huffman MD Unavailable [phone] Nadeem Garcia ND Unavailable [phone] Dennis Stephens MD Unavailable Unavailable Terrell Morgan MD Unavailable [phone] Encounter Details Date Type Department Care Team (Late st Contact Info) Description 01/27/2025 Scanned Document [facility] [address] [place] [address] Orthopedic Surgery, Scan Social History Tobacco Use Types Packs/Day [...] Description 05/13/2025 10:30 AM EST Office Visit [place] [address] [facility] [address] [place] [address] Laurie Guzman PA-C [address] [place] [address] documented as of this encounter Visit Diagnoses Not on filedocumented in this encounter Care Teams Director Of User Experience Relationship Specialty Start Date End Date Laurie Guzman PA-C [address] [place] [address] PCP - General Internal Medicine 07/23/23 Bernie Christianson MD [address] [place] [address] Referring Provider 05/12/24 Soham Pearce MD [address] [place] [address] 100 [place] [address] Physician Otolaryngology 05/12/24 Noe Huffman MD [address] [place] [address] Medicine Hospitalist 05/12/24 Nadeem Garcia ND [address] [place] [address] Referring Provider 05/12/24 Dennis Stephens MD [address] [place] [address] Referring Provider Urology 05/12/24 Terrell Morgan MD [address] [place] [address] Ophthalmology 05/12/24 Liz Bowser Physician Podiatry 04/27/24 documented as of this encounter
--- OUTSIDE RECORDS SUMMARY | 2025-03-10 13:24 | XMS_ITS | Encounter Summary ---
Author Organization [facility] Address [address] [place] [address] Care Team Providers Care Public Space Attendant Name Role Phone Laurie Guzman PA-C Primary Care Provi walter Bernie Christianson MD Unavailable [phone] Soham Pearce MD Unavailable [phone] Noe Huffman MD Unavailable [phone] Nadeem Garcia ND Unavailable [phone] Dennis Stephens MD Unavailable Unavailable Terrell Morgan MD Unavailable [phone] Encounter Details Date Type Department Care Team (Late st Contact Info) Description 07/29/2023 Scanned Document [facility] GASTRO SCAN Bernie Christianson MD [address] [place] [address] Social History Tobacco Use Types Packs/Day Years [...] Description 05/13/2025 10:30 AM EST Office Visit [facility] 100 [facility] [address] [place] [address] Laurie Guzman PA-C 100 [place] [address] documented as of this encounter Visit Diagnoses Not on filedocumented in this encounter Care Teams Public Space Attendant Relationship Specialty Start Date End Date Laurie Guzman PA-C 100 [place] [address] PCP - General Internal Medicine 07/23/23 Bernie Christianson MD 100 [place] [address] Referring Provider 05/12/24 Soham Pearce MD [address] [place] [address] [address] [place] [address] Physician Otolaryngology 05/12/24 Noe Huffman MD [address] [place] [address] Medicine Hospitalist 05/12/24 Nadeem Garcia ND [address] [place] [address] Referring Provider 05/12/24 Dennis Stephens MD [address] [place] [address] Referring Provider Urology 05/12/24 Terrell Morgan MD 656 [place] [address] Ophthalmology 05/12/24 Liz Bowser Physician Podiatry 04/27/24 documented as of this encounter
--- OUTSIDE RECORDS SUMMARY | 2025-03-10 13:24 | XMS_ITS | Encounter Summary ---
Author Organization [facility] Address [address] [place] [address] Care Team Providers Care Timber Mill Worker Name Role Phone Laurie Guzman PA-C Primary Care Provi walter Bernie Christianson MD Unavailable [phone] Soham Pearce MD Unavailable [phone] Noe Huffman MD Unavailable [phone] Nadeem Garcia ND Unavailable [phone] Dennis Stephens MD Unavailable Unavailable Terrell Morgan MD Unavailable [phone] Encounter Details Date Type Department Care Team (Late st Contact Info) Description 03/03/2025 Orders Only [facility] 12[address] [place] [address] Orthopedic Surgery, Scan Social History Tobacco Use [...] Description 05/13/2025 10:30 AM EST Office Visit [place] [address] [facility] [address] [place] [address] Laurie Guzman PA-C 100 [place] [address] documented as of this encounter Procedures Procedure Name Priority Date/Time Associated Diagnosis Comments MRI EXTERNAL RESULT Routine 03/02/2025 6:35 AM EDT documented in this encounter Results * MRI External Result (03/02/2025 6:35 AM EDT) Anatomical Region Laterality Modality Magnetic Resonan ce us Scan Orthopedic Surgery IMG MRI ORDERABLES Edite d Result - Final documented in this encounter Visit Diagnoses Not on filedocumented in this encounter Care Teams Timber Mill Worker Relationship Specialty Start Date End Date Laurie Guzman PA-C 100 [place] [address] PCP - General Internal Medicine 07/23/23 Bernie Christianson MD [address] [place] [address] Referring Provider 05/12/24 Soham Pearce MD [address] [place] [address] [address] [place] [address] Physician Otolaryngology 05/12/24 Noe Huffman MD [address] [place] [address] Medicine Hospitalist 05/12/24 Nadeem Garcia ND 800 [facility] [place] [address] Referring Provider 05/12/24 Dennis Stephens MD [address] [place] [address] Referring Provider Urology 05/12/24 Terrell Morgan MD 6 [place] [address] Ophthalmology 05/12/24 Liz Bowser Physician Podiatry 04/27/24 documented as of this encounter
--- OUTSIDE RECORDS SUMMARY | 2025-03-10 13:24 | XMS_ITS | Clinical Summary ---
Author Organization [facility] [address] [place] [address] Care Team Providers Care Coremaker Supervisor Name Role Phone Unavailable Primary Care Provider [...] 2014 Covid-19 vaccine series ( - season) 2025 Influenza vaccine 03/01/2025 05/12/2024, 06/20/2023 Tetanus adult (Td q 10,TDAP once) 04/25/2027 04/25/2017 Pneumococcal Vaccine (50+ years) Completed 06/20/2023 Meningococcal B Vaccine Aged Out No l onger eligible based on patient's age to complete this topic Meningococcal Vaccine Aged Out No parvin mary eligible based on patient's age to complete this topic Insurance MEDICARE [facility] MEDICARE [facility] MEDICARE [facility]
--- OUTSIDE RECORDS SUMMARY | 2025-03-10 13:24 | XMS_ITS | Encounter Summary ---
Author Organization [facility] Address [address] [place] [address] Care Team Providers Care Varnish Finisher Name Role Phone Laurie Guzman PA-C Primary Care Provi walter Bernie Christianson MD Unavailable [phone] Soham Pearce MD Unavailable [phone] Noe Huffman MD Unavailable [phone] Nadeem Garcia ND Unavailable [phone] Dennis Stephens MD Unavailable Unavailable Terrell Morgan MD Unavailable [phone] Encounter Details Date Type Department Care Team (Late st Contact Info) Description 01/05/2025 Scanned Document [facility] 12[address] [place] [address] Orthopedic Surgery, Scan Social History Tobacco Use [...] Description 05/13/2025 10:30 AM EST Office Visit [place] [address] [facility] [address] [place] [address] Laurie Guzman PA-C 100 [place] [address] documented as of this encounter Visit Diagnoses Not on filedocumented in this encounter Care Teams Varnish Finisher Relationship Specialty Start Date End Date Laurie Guzman PA-C 100 [place] [address] PCP - General Internal Medicine 07/23/23 Bernie Christianson MD 100 [place] [address] Referring Provider 05/12/24 Soham Pearce MD [address] [place] [address] 100 [place] [address] Physician Otolaryngology 05/12/24 Noe Huffman MD [address] [place] [address] Medicine Hospitalist 05/12/24 Nadeem Garcia ND [address] [place] [address] Referring Provider 05/12/24 Dennis Stephens MD [address] [place] [address] Referring Provider Urology 05/12/24 Terrell Morgan MD 656 [place] [address] Ophthalmology 05/12/24 Liz Bowser Physician Podiatry 04/27/24 documented as of this encounter
--- OUTSIDE RECORDS SUMMARY | 2025-03-10 13:24 | XMS_ITS | Clinical Summary ---
Author Organization [facility] Address [address] [place] [address] Care Team Providers Care Executive Recruiter Name Role Phone Laurie Guzman Primary Care Provider [phone] Allergies Active Allergy Reactions Criticality Noted Date [...] age to complete this topic Care Teams Executive Recruiter Relationship Specialty Start Date End Date Laurie Guzman PA PCP - General Physician Biomechanical Engineer 03/15/22
--- OUTSIDE RECORDS SUMMARY | 2025-03-10 13:24 | XMS_ITS | Encounter Summary ---
Author Organization [facility] Address [address] [place] [address] Care Team Providers Care Spring Clipper Name Role Phone Laurie Guzman PA-C Primary Care Provi walter Bernie Christianson MD Unavailable [phone] Soham Pearce MD Unavailable [phone] Noe Huffman MD Unavailable [phone] Nadeem Garcia ND Unavailable [phone] Dennis Stephens MD Unavailable Unavailable Terrell Morgan MD Unavailable [phone] Encounter Details Date Type Department Care Team (Late st Contact Info) Description 01/31/2024 Scanned Document [facility] GASTRO SCAN Bernie Christianson MD [address] [place] [address] Social History Tobacco Use Types Packs/Day Years [...] Description 05/13/2025 10:30 AM EST Office Visit [facility] 100 [facility] [address] [place] [address] Laurie Guzman PA-C 100 [place] [address] documented as of this encounter Visit Diagnoses Not on filedocumented in this encounter Care Teams Spring Clipper Relationship Specialty Start Date End Date Laurie Guzman PA-C [address] [place] [address] PCP - General Internal Medicine 07/23/23 Bernie Christianson MD [address] [place] [address] Referring Provider 05/12/24 Soham Pearce MD [address] [place] [address] [address] [place] [address] Physician Otolaryngology 05/12/24 Noe Huffman MD [address] [place] [address] Medicine Hospitalist 05/12/24 Nadeem Garcia ND [address] [place] [address] Referring Provider 05/12/24 Dennis Stephens MD [address] [place] [address] Referring Provider Urology 05/12/24 Terrell Morgan MD 6[address] [place] [address] Ophthalmology 05/12/24 Liz Bowesr Physician Podiatry 04/27/24 documented as of this encounter
== END 2025-03-10 11:32 | disposition home or self-care (01) ==
LOC: HO.HOS 10:45
PROVIDERS: Visit Provider Orthopaedic Surgery
DX: M25.562 Pain in left knee (principal); S83.242A Other tear of medial meniscus, current injury, left knee, initial encounter; M17.12 Unilateral primary osteoarthritis, left knee
CPT/HCPCS: 99213; G2211

== ENCOUNTER → 2025-03-10 10:45 | Outpatient (BNVA) | payer MEDICARE, SELFPAY | PROVIDERS: Visit Provider Orthopaedic Surgery | DX: M25.562 Pain in left knee (principal); S83.242A Other tear of medial meniscus, current injury, left knee, initial encounter; M17.12 Unilateral primary osteoarthritis, left knee | CPT/HCPCS: 99212 ==

== ENCOUNTER 2025-05-14 06:11 | Day surgery (SDC) | payer MEDICARE, SELFPAY ==
--- OUTSIDE RECORDS SUMMARY | 2025-03-16 13:14 | XMS_ITS | Encounter Summary ---
Author Organization [facility] Address [address] [place] [address] Care Team Providers Care Activities Attendant Name Role Phone Laurie Guzman PA-C Primary Care Provi walter Bernie Christianson MD Unavailable [phone] Soham Pearce MD Unavailable [phone] Noe Huffmna MD Unavailable [phone] Nadeem Garcia ND Unavailable [phone] Dennis Stephens MD Unavailable Unavailable Terrell Morgan MD Unavailable [phone] Encounter Details Date Type Department Care Team (Late st Contact Info) Description 01/16/2024 Scanned Document [facility] GASTRO SCAN Bernie Christianson MD [address] [place] [address] Social History Tobacco Use Types Packs/Day Years [...] Care Team (Late st Contact Info) Description 04/19/2025 1:00 PM EDT Pre-Admission Testing [facility] Pre-Admission Testing Center in [place] 1060 [facility] [address] [place] [address] Hillary Arriaga, DEDRICK 85 [facility] 601 [place] [address] 05/13/2025 10:30 AM EST Office Visit [facility] 100 [facility] [address] [place] [address] Laurie Guzman PA-C 100 [place] [address] documented as of this encounter Visit Diagnoses Not on filedocumented in this encounter Care Teams Activities Attendant Relationship Specialty Start Date End Date Laurie Guzman PA-C [address] [place] [address] PCP - General Internal Medicine 07/23/23 Bernie Christianson MD [address] [place] [address] Referring Provider 05/12/24 Soham Pearce MD 4 [facility] [address] [place] [address] Physician Otolaryngology 05/12/24 Noe Huffman MD [address] [place] [address] [id number] Medicine Hospitalist 05/12/24 Nadeem Garcia ND [address] [place] [address] Referring Provider 05/12/24 Dennis Stephens MD [address] [place] [address] Referring Provider Urology 05/12/24 Terrell Morgan MD 6 [place] [address] Ophthalmology 05/12/24 Liz Bowser Physician Podiatry 04/27/24 documented as of this encounter
--- OUTSIDE RECORDS SUMMARY | 2025-03-16 13:14 | XMS_ITS | Encounter Summary ---
Author Organization [facility] Address 100 [place] [address] Care Team Providers Care Mine Environmental Engineer Name Role Phone Laurie Guzman PA-C Primary Care Provi walter Bernie Christianson MD Unavailable [phone] Soham Pearce MD Unavailable [phone] Noe Huffman MD Unavailable [phone] Nadeem Garcia ND Unavailable [phone] Dennis Stephens MD Unavailable Unavailable Terrell Morgan MD Unavailable [phone] Encounter Details Date Type Department Care Team (Late st Contact Info) Description 08/18/2024 Scanned Document [facility] 1290 [place] [address] Otolaryngology, Scan Social History Tobacco Use Types [...] Description 04/19/2025 1:00 PM EDT Pre-Admission Testing [facility] Pre-Admission Testing Center in [place] 1060 [facility] [address] [place] [address] Hillary Arriaga, DEDRICK 85 [facility] 601 [place] [address] 05/13/2025 10:30 AM EST Office Visit [facility] 100 [facility] [address] [place] [address] Laurie Guzman PA-C 100 [place] [address] documented as of this encounter Visit Diagnoses Not on filedocumented in this encounter Care Teams Mine Environmental Engineer Relationship Specialty Start Date End Date Laurie Guzman PA-C 100 [place] [address] PCP - General Internal Medicine 07/23/23 Bernie Christianson MD 100 [place] [address] Referring Provider 05/12/24 Soham Pearce MD [address] [place] [address] [address] [place] [address] Physician Otolaryngology 05/12/24 Noe Huffman MD [address] [place] [address] [phone] Medicine Hospitalist 05/12/24 Nadeem Garcia ND [address] [place] [address] Referring Provider 05/12/24 Dennis Stephens MD [address] [place] [address] Referring Provider Urology 05/12/24 Terrell Morgan MD 6 [place] [address] Ophthalmology 05/12/24 Liz Bowser Physician Podiatry 04/27/24 documented as of this encounter
--- OUTSIDE RECORDS SUMMARY | 2025-03-16 13:14 | XMS_ITS | Clinical Summary ---
Author Organization [facility] Address [address] [place] [address] Care Team Providers Care Tufting Creeler Name Role Phone Soham Pearce MD Primary Care Provider [phone] Allergies Active Allergy Reactions Criticality Noted Date [...] DAY 90 0 3 Active Nystatin (MYCOSTATIN) 835662 UNIT/ML suspension TAKE 5 ML SWISH AND [...] age to complete this topic Care Teams Tufting Creeler Relationship Specialty Start Date End Date Soham Pearce MD 599 [facility] [address] [place] [address] PCP - General 02/04/23
--- OUTSIDE RECORDS SUMMARY | 2025-03-16 13:14 | XMS_ITS | Encounter Summary ---
Author Organization [facility] Address [address] [place] [address] Care Team Providers Care Financial Business Analyst Name Role Phone Laurie Guzman PA-C Primary Care Provi walter Bernie Christianson MD Unavailable [phone] Soham Pearce MD Unavailable [phone] Noe Huffman MD Unavailable [phone] Nadeem Garcia ND Unavailable [phone] Dennis Stephens MD Unavailable Unavailable Terrell Morgan MD Unavailable [phone] Encounter Details Date Type Department Care Team (Late st Contact Info) Description 01/27/2025 Scanned Document [facility] 12[address] [place] [address] Orthopedic Surgery, Scan Social History Tobacco Use [...] Description 04/19/2025 1:00 PM EDT Pre-Admission Testing [facility] Pre-Admission Testing Center in [place] 1060 [facility] [address] [place] [address] Hillary Arriaga, DEDRICK 85 [facility] 601 [place] [address] 05/13/2025 10:30 AM EST Office Visit [facility] 100 [facility] [address] [place] [address] Laurie Guzman PA-C 100 [place] [address] documented as of this encounter Visit Diagnoses Not on filedocumented in this encounter Care Teams Financial Business Analyst Relationship Specialty Start Date End Date Laurie Guzman PA-C 100 [place] [address] PCP - General Internal Medicine 07/23/23 Bernie Christianson MD 100 [place] [address] Referring Provider 05/12/24 Soham Pearce MD 4 [facility] [address] [place] [address] Physician Otolaryngology 05/12/24 Noe Huffman MD [address] [place] [address] Medicine Hospitalist 05/12/24 Nadeem Garcia ND [address] [place] [address] Referring Provider 05/12/24 Dennis Stephens MD [address] [place] [address] Referring Provider Urology 05/12/24 Terrell Morgan MD 6 [place] [address] Ophthalmology 05/12/24 Liz Bowser Physician Podiatry 04/27/24 documented as of this encounter
--- OUTSIDE RECORDS SUMMARY | 2025-03-16 13:14 | XMS_ITS | Encounter Summary ---
Author Organization [facility] Address [address] [place] [address] Care Team Providers Care Dehorner Name Role Phone Laurie Guzman PA-C Primary Care Provi walter Bernie Christianson MD Unavailable [phone] Soham Pearce MD Unavailable [phone] Noe Huffman MD Unavailable [phone] Nadeem Garcia ND Unavailable [phone] Dennis Stephens MD Unavailable Unavailable Terrell Morgan MD Unavailable [phone] Encounter Details Date Type Department Care Team (Late st Contact Info) Description 01/16/2024 Scanned Document [facility] [address] [place] [address] Laurie Guzman PA-C [address] [place] [address] Social History Tobacco Use Types [...] Description 04/19/2025 1:00 PM EDT Pre-Admission Testing [facility] Pre-Admission Testing Center in [place] 1060 [facility] [address] [place] [address] Hillary Arriaga, CITY CARRIER [address] [place] [address] [place] [address] 05/13/2025 10:30 AM EST Office Visit [facility] 100 [facility] [address] [place] [address] Laurie Guzman PA-C 100 [place] [address] documented as of this encounter Visit Diagnoses Not on filedocumented in this encounter Care Teams Dehorner Relationship Specialty Start Date End Date Laurie Guzman PA-C 100 [place] [address] PCP - General Internal Medicine 07/23/23 Bernie Christianson MD 100 [place] [address] Referring Provider 05/12/24 Soham Pearce MD [address] [place] [address] [address] [place] [address] Physician Otolaryngology 05/12/24 Noe Huffman MD [address] [place] [address] Medicine Hospitalist 05/12/24 Nadeem Garcia ND [address] [place] [address] Referring Provider 05/12/24 Dennis Stephens MD [address] [place] [address] Referring Provider Urology 05/12/24 Terrell Morgan MD 6 [place] [address] Ophthalmology 05/12/24 Liz Bowser Physician Podiatry 04/27/24 documented as of this encounter
--- OUTSIDE RECORDS SUMMARY | 2025-03-16 13:14 | XMS_ITS | Encounter Summary ---
Author Organization [facility] Address [address] [place] [address] Care Team Providers Care Squeegee Finisher Name Role Phone Laurie Guzman PA-C Primary Care Provi walter Bernie Christianson MD Unavailable [phone] Soham Pearce MD Unavailable [phone] Noe Huffman MD Unavailable [phone] Nadeem Garcia ND Unavailable [phone] Dennis Stephens MD Unavailable Unavailable Terrell Morgan MD Unavailable [phone] Encounter Details Date Type Department Care Team (Late st Contact Info) Description 01/31/2024 Scanned Document [facility] GASTRO SCAN Bernie Christianson MD [address] [place] [address] Social History Tobacco Use Types Packs/Day Years [...] Description 04/19/2025 1:00 PM EDT Pre-Admission Testing [facility] Pre-Admission Testing Center in [place] 1060 [facility] [address] [place] [address] Hillary Arriaga, DEDRICK 85 [facility] 601 [place] [address] 05/13/2025 10:30 AM EST Office Visit [facility] 100 [facility] [address] [place] [address] Laurie Guzman PA-C 100 [place] [address] documented as of this encounter Visit Diagnoses Not on filedocumented in this encounter Care Teams Squeegee Finisher Relationship Specialty Start Date End Date Laurie Guzman PA-C 100 [place] [address] PCP - General Internal Medicine 07/23/23 Bernie Christianson MD [address] [place] [address] Referring Provider 05/12/24 Soham Pearce MD [address] [facility] [address] [place] [address] Physician Otolaryngology 05/12/24 Noe Huffman MD [address] [place] [id number] Medicine Hospitalist 05/12/24 Nadeem Garcia ND [address] [place] [address] Referring Provider 05/12/24 Dennis Stephens MD [address] [place] [address] Referring Provider Urology 05/12/24 Terrell Morgan MD 6 [place] [address] Ophthalmology 05/12/24 Liz Bowser Physician Podiatry 04/27/24 documented as of this encounter
--- OUTSIDE RECORDS SUMMARY | 2025-03-16 13:14 | XMS_ITS | Encounter Summary ---
Author Organization [facility] Address [address] [place] [address] Care Team Providers Care Caseworker Protective Services Name Role Phone Laurie Guzman PA-C Primary Care Provi walter Bernie Christianson MD Unavailable [phone] Soham Pearce MD Unavailable [phone] Noe Huffman MD Unavailable [phone] Nadeem Garcia ND Unavailable [phone] Dennis Stephens MD Unavailable Unavailable Terrell Morgan MD Unavailable [phone] Encounter Details Date Type Department Care Team (Late st Contact Info) Description 07/23/2024 Scanned Document [facility] [address] [place] [address] Urology, Scan Social History Tobacco Use Types [...] Description 04/19/2025 1:00 PM EDT Pre-Admission Testing [facility] Pre-Admission Testing Center in [place] 1060 [facility] [address] [place] [address] Hillary Arriaga, DEDRICK 85 [facility] 601 [place] [address] 05/13/2025 10:30 AM EST Office Visit [facility] 100 [facility] [address] [place] [address] Laurie Guzman PA-C 100 [place] [address] documented as of this encounter Visit Diagnoses Not on filedocumented in this encounter Care Teams Caseworker Protective Services Relationship Specialty Start Date End Date Laurie Guzman PA-C 100 [place] [address] PCP - General Internal Medicine 07/23/23 Bernie Christianson MD [address] [place] [address] Referring Provider 05/12/24 Soham Pearce MD 4 [facility] [address] [place] [address] Physician Otolaryngology 05/12/24 Noe Huffman MD [address] [place] [address] Medicine Hospitalist 05/12/24 Nadeem Garcia ND [address] [place] [address] Referring Provider 05/12/24 Dennis Stephens MD [address] [place] [address] Referring Provider Urology 05/12/24 Terrell Morgan MD 6 [place] [address] Ophthalmology 05/12/24 Liz Bowser Physician Podiatry 04/27/24 documented as of this encounter
--- OUTSIDE RECORDS SUMMARY | 2025-03-16 13:14 | XMS_ITS | Encounter Summary ---
Author Organization [facility] Address 5 [place] [address] Care Team Providers Care Miner Pick Name Role Phone Soham Pearce MD Primary Care Provider [phone] Encounter Details Date Type Department Care Team (Late st Contact Info) Description 09/27/2022 Orders Only [facility] 3 [place], [place] [id number] Soham Pearce MD [address] [facility] [address] [place], [place] [address] Social History Tobacco Use Types Packs/Day Years [...] 17Sep2022 01:45PM Soham Pearce TESTING PERFORMED AT: [address] [address], PHONE [phone], FAX [phone] Test Name Result Flag Reference CT Neck [...] your patient to us, Po Marie MD [id number] (Electronically Signed - 09/26/2022 12:48) Copy: [facility] [address] [place] [address] documented in this encounter Plan of Treatment Not on file documented as of this encounter Visit Diagnoses Not on filedocumented in this encounter Care Teams Miner Pick Relationship Specialty Start Date End Date Soham Pearce MD 599 [facility] 102 [place] [address] PCP - General 02/04/23 documented as of this encounter
--- OUTSIDE RECORDS SUMMARY | 2025-03-16 13:14 | XMS_ITS | Encounter Summary ---
Author Organization [facility] Address [address] [place] [address] Care Team Providers Care Research Electrician Name Role Phone Laurie Guzman PA-C Primary Care Provi walter Bernie Christianson MD Unavailable [phone] Soham Pearce MD Unavailable [phone] Noe Huffman MD Unavailable [phone] Nadeem Garcia ND Unavailable [phone] Dennis Stephens MD Unavailable Unavailable Terrell Morgan MD Unavailable [phone] Reason for Visit * Reason Comments Advice Only Encounter Details Date Type Department Care Team ([facility] st Contact Info) Description 07/03/[address] [address] Laurie Guzman PA-C 100 [place] [address] Advice Only Social History Tobacco Use Types [...] [facility] Pre-Admission Testing Center in [place] 1060 [facility] [address] [place] [address] Hillary Arriaga, MOLDER SWEEP 85 [facility] 601 [place] [address] 05/13/2025 10:30 AM EST Office Visit [address] [place] [address] Laurie Guzman PA-C 100 [place] [address] documented as of this encounter Visit Diagnoses Not on filedocumented in this encounter Care Teams Research Electrician Relationship Specialty Start Date End Date Laurie Guzman PA-C 100 [place] [address] PCP - General Internal Medicine 07/23/23 Bernie Christianson MD 100 [place] [address] Referring Provider 05/12/24 Soham Pearce MD [address] [place] [address] [address] [place] [address] Physician Otolaryngology 05/12/24 Noe Huffman MD 575 [place] [address] Medicine Hospitalist 05/12/24 Nadeem Garcia ND [address] [place] [address] Referring Provider 05/12/24 Dennis Stephens MD [address] [place] [address] Referring Provider Urology 05/12/24 Terrell Morgan MD [address] [place] [address] Ophthalmology 05/12/24 Liz Bowser Physician Podiatry 04/27/24 documented as of this encounter
--- OUTSIDE RECORDS SUMMARY | 2025-03-16 13:14 | XMS_ITS | Encounter Summary ---
Author Organization [facility] Address [address] [place] [address] Care Team Providers Care Electronic Musical Instrument Repairer Name Role Phone Laurie Guzman PA-C Primary Care Provi walter Bernie Christianson MD Unavailable [phone] Soham Pearce MD Unavailable [phone] Noe Huffman MD Unavailable [phone] Nadeem Garcia ND Unavailable [phone] Dennis Stephens MD Unavailable Unavailable Terrell Morgan MD Unavailable [phone] Encounter Details Date Type Department Care Team (Late st Contact Info) Description 07/29/2023 Scanned Document [facility] GASTRO SCAN Bernie Christianson MD [address] [place] [address] Social History Tobacco Use Types Packs/Day Years [...] Description 04/19/2025 1:00 PM EDT Pre-Admission Testing [facility] Pre-Admission Testing Center in [place] 1060 [facility] [address] [place] [address] Hillary Arriaga, DEDRICK 85 [facility] 601 [place] [address] 05/13/2025 10:30 AM EST Office Visit [facility] 100 [facility] [address] [place] [address] Laurie Guzman PA-C 100 [place] [address] documented as of this encounter Visit Diagnoses Not on filedocumented in this encounter Care Teams Electronic Musical Instrument Repairer Relationship Specialty Start Date End Date Lauire Guzman PA-C 100 [place] [address] PCP - General Internal Medicine 07/23/23 Bernie Christianson MD 100 [place] [address] Referring Provider 05/12/24 Soham Pearce MD 4 [facility] [address] [place] [address] Physician Otolaryngology 05/12/24 Noe Huffman MD [address] [place] [address] [id number] Medicine Hospitalist 05/12/24 Nadeem Garcia ND [address] [place] [address] Referring Provider 05/12/24 Dennis Stephens MD [address] [place] [address] Referring Provider Urology 05/12/24 Terrell Morgan MD 6 [place] [address] Ophthalmology 05/12/24 Liz Bowser Physician Podiatry 04/27/24 documented as of this encounter
--- OUTSIDE RECORDS SUMMARY | 2025-03-16 13:14 | XMS_ITS | Clinical Summary ---
Author Organization [facility] Address [address] [place] [address] Phone Care Team Providers Care Water Registrar Name Role Phone Bear Parsons MD Primary Care Provider [phone] Social History Tobacco Use Types Packs/Day Years [...] Medical Devices Not on file Care Teams Water Registrar Relationship Specialty Start Date End Date Bear Parsons MD [address] [address] PCP - General Internal Medicine 04/01/19 Additional Source Comments The information contained in this document represents components of the legal health record. It is not the complete legal health record.[facility]
--- OUTSIDE RECORDS SUMMARY | 2025-03-16 13:14 | XMS_ITS | Encounter Summary ---
Author Organization [facility] Address [address] [place] [address] Care Team Providers Care Retail Interior Designer Name Role Phone Laurie Guzman PA-C Primary Care Provi walter Bernie Christianson MD Unavailable [phone] Soham Pearce MD Unavailable [phone] Noe Huffman MD Unavailable [phone] Nadeem Garcia ND Unavailable [phone] Dennis Stephens MD Unavailable Unavailable Terrell Morgan MD Unavailable [phone] Encounter Details Date Type Department Care Team (Late st Contact Info) Description 10/01/2023 Scanned Document [address] [phone] Primary Care, Scan Social History Tobacco Use [...] Description 04/19/2025 1:00 PM EDT Pre-Admission Testing [facility] Pre-Admission Testing Center in [place] [address] [facility] [address] [place] [address] Hillary Arriaga, ELEVATOR ERECTOR 85 [facility] 601 [place] [address] 05/13/2025 10:30 AM EST Office Visit [facility] 100 [facility] [address] [place] [address] Laurie Guzman PA-C 100 [place] [address] documented as of this encounter Visit Diagnoses Not on filedocumented in this encounter Care Teams Retail Interior Designer Relationship Specialty Start Date End Date Laurie Guzman PA-C 100 [place] [address] PCP - General Internal Medicine 07/23/23 Bernie Christianson MD 100 [place] [address] Referring Provider 05/12/24 Soham Pearce MD [address] [place] [address] [address] [place] [address] Physician Otolaryngology 05/12/24 Noe Huffman MD [address] [place] [address] Medicine Hospitalist 05/12/24 Nadeem Garcia ND 800 [facility] [place] [address] Referring Provider 05/12/24 Dennis Stephens MD [address] [place] [address] Referring Provider Urology 05/12/24 Terrell Morgan MD 6 [place] [address] Ophthalmology 05/12/24 Liz Bowser Physician Podiatry 04/27/24 documented as of this encounter
--- OUTSIDE RECORDS SUMMARY | 2025-03-16 13:14 | XMS_ITS | Encounter Summary ---
Author Organization [facility] Address [address] [place] [address] [place] [address] Phone Care Team Providers Care Retail Agent Name Role Phone Bear Parsons MD Primary Care Provider [phone] Encounter Details Date Type Department Care Team (Latest Contact Info) Description 04/01/2019 Transcribe Orders [facility] Laboratory 30 [place] [address] Portillo Hernandez MD [address] [place] [address], [address] [address] [email or web address] Prostate cancer screening (Primary Dx) Social History [...] PM EDT) PSA, TOTAL 5.2(H) <=4.5 ng/mL [facility] FREE PSA 1.1 ng/mL [facility] FREE/TOT PSA RATIO 0.21 ratio M [facility] Comment: [...] Inc. and performed on the Modular or Ibnu system. Values obtained with different assay methods or kits may be different and cannot be used interchangeably. Test results cannot be interpreted as absolute evidence for the presence or absence of malignant disease. Blood 04/01/2019 2:39 PM EDT 04/01/2019 2:44 PM EDT us Portillo Hernandez MD LAB BLOOD ORDERABLES Final Resu lt [facility] [address] [place] [address] documented in this encounter Visit Diagnoses Diagnosis Prostate cancer screening- Primary Special screening for malignant neoplasm of prostate documented in this encounter Care Teams Retail Agent Relationship Specialty Start Date End Date Bear Parsons MD [address] [address] PCP - General Internal Medicine 04/01/19 documented as of this encounter Additional Source Comments The information contained in this document represents components of the legal health record. It is not the complete legal health record.[facility]
--- OUTSIDE RECORDS SUMMARY | 2025-03-16 13:14 | XMS_ITS | Encounter Summary ---
Author Organization [facility] Address 100 [place] [address] Care Team Providers Care Record Cutter Name Role Phone Laurie Guzman PA-C Primary Care Provi walter Bernie Christianson MD Unavailable [phone] Soham Pearce MD Unavailable [phone] Noe Huffman MD Unavailable [phone] Nadeem Garcia ND Unavailable [phone] Dennis Stephens MD Unavailable Unavailable Terrell Morgan MD Unavailable [phone] Encounter Details Date Type Department Care Team (Late st Contact Info) Description 07/25/2023 Scanned Document [facility] INTERNAL MED SCAN Internal Medicine, Scan [...] [facility] Pre-Admission Testing Center in [address] [place] [address] Hillary Arriaga, OR ASSISTANT 85 [facility] 601 [place] [address] 05/13/2025 10:30 AM EST Office Visit [facility] 100 [facility] [address] [place] [address] Laurie Guzman PA-C 100 [place] [address] documented as of this encounter Visit Diagnoses Not on filedocumented in this encounter Care Teams Record Cutter Relationship Specialty Start Date End Date Laurie Guzman PA-C [address] [place] [address] PCP - General Internal Medicine 07/23/23 Bernie Christianson MD [address] [place] [address] Referring Provider 05/12/24 Soham Pearce MD [address] [place] [address] [address] [place] [address] Physician Otolaryngology 05/12/24 Noe Huffman MD [address] [place] [address] Medicine Hospitalist 05/12/24 Nadeem Garcia ND [address] [place] [address] Referring Provider 05/12/24 Dennis Stephens MD [address] [place] [address] Referring Provider Urology 05/12/24 Terrell Morgan MD 6[address] [place] [address] Ophthalmology 05/12/24 Liz Bowser Physician Podiatry 04/27/24 documented as of this encounter
--- OUTSIDE RECORDS SUMMARY | 2025-03-16 13:14 | XMS_ITS | Encounter Summary ---
Author Organization [facility] Address 100 [place] [address] Care Team Providers Care Inside Channel Account Manager Name Role Phone Laurie Guzman PA-C Primary Care Provi walter Bernie Christianson MD Unavailable [phone] Soham Pearce MD Unavailable [phone] Noe Huffman MD Unavailable [phone] Nadeem Garcia ND Unavailable [phone] Dennis Stephens MD Unavailable Unavailable Terrell Morgan MD Unavailable [phone] Encounter Details Date Type Department Care Team (Late st Contact Info) Description 11/09/2024 Scanned Document [facility] 12[address] [place] [address] Otolaryngology, Scan Social History Tobacco Use Types [...] Description 04/19/2025 1:00 PM EDT Pre-Admission Testing [facility] Pre-Admission Testing Center in [place] 1060 [facility] [address] [place] [address] Hillary Arriaga, DEDRICK 85 [facility] 601 [place] [address] 05/13/2025 10:30 AM EST Office Visit [facility] 100 [facility] [address] [place] [address] Laurie Guzman PA-C 100 [place] [address] documented as of this encounter Visit Diagnoses Not on filedocumented in this encounter Care Teams Inside Channel Account Manager Relationship Specialty Start Date End Date Laurie Guzman PA-C 100 [place] [address] PCP - General Internal Medicine 07/23/23 Bernie Christianson MD [address] [place] [address] Referring Provider 05/12/24 Soham Pearce MD [address] [place] [address] [address] [place] [address] Physician Otolaryngology 05/12/24 Noe Huffman MD [address] [place] [id number] Medicine Hospitalist 05/12/24 Nadeem Garcia ND [address] [place] [address] Referring Provider 05/12/24 Dennis Stephens MD [address] [place] [address] Referring Provider Urology 05/12/24 Terrell Morgan MD 6 [place] [address] Ophthalmology 05/12/24 Liz Bowser Physician Podiatry 04/27/24 documented as of this encounter
--- OUTSIDE RECORDS SUMMARY | 2025-03-16 13:14 | XMS_ITS | Encounter Summary ---
Author Organization [facility] Address 100 [place] [address] Care Team Providers Care Parcel Contractor Name Role Phone Laurie Guzman PA-C Primary Care Provi walter Bernie Christianson MD Unavailable [phone] Soham Pearce MD Unavailable [phone] Noe Huffman MD Unavailable [phone] Nadeem Garcia ND Unavailable [phone] Dennis Stephens MD Unavailable Unavailable Terrell Morgan MD Unavailable [phone] Encounter Details Date Type Department Care Team (Late st Contact Info) Description 01/15/2025 Scanned Document [facility] 12[address] [place] [address] Urology, Scan Social History Tobacco Use Types [...] Description 04/19/2025 1:00 PM EDT Pre-Admission Testing [facility] Pre-Admission Testing Center in [place] 1060 [facility] [address] [place] [address] Hillary Arriaga, DEDRICK 85 [facility] 601 [place] [address] 05/13/2025 10:30 AM EST Office Visit [facility] 100 [facility] [address] [place] [address] Laurie Guzman PA-C 100 [place] [address] documented as of this encounter Visit Diagnoses Not on filedocumented in this encounter Care Teams Parcel Contractor Relationship Specialty Start Date End Date Laurie Guzman PA-C 100 [place] [address] PCP - General Internal Medicine 07/23/23 Bernie Christianson MD 100 [place] [address] Referring Provider 05/12/24 Soham Pearce MD 4 [facility] [address] [place] [address] Physician Otolaryngology 05/12/24 Noe Huffman MD [address] [place] [address] Medicine Hospitalist 05/12/24 Nadeem Garcia ND [address] [place] [address] Referring Provider 05/12/24 Dennis Stephens MD [address] [place] [address] Referring Provider Urology 05/12/24 Terrell Morgan MD 6 [place] [address] Ophthalmology 05/12/24 Liz Bowser Physician Podiatry 04/27/24 documented as of this encounter
--- OUTSIDE RECORDS SUMMARY | 2025-03-16 13:14 | XMS_ITS | Encounter Summary ---
Author Organization [facility] Address [address] [place] [address] Care Team Providers Care Technology Assistant Name Role Phone Laurie Guzman PA-C Primary Care Provi walter Bernie Christianson MD Unavailable [phone] Soham Pearce MD Unavailable [phone] Noe Huffman MD Unavailable [phone] Nadeem Garcia ND Unavailable [phone] Dennis Stephens MD Unavailable Unavailable Terrell Morgan MD Unavailable [phone] Encounter Details Date Type Department Care Team (Late st Contact Info) Description 01/05/2025 Scanned Document [facility] 12[address] [place] [address] Orthopedic Surgery, Scan Social History Tobacco Use [...] [facility] Pre-Admission Testing Center in [place] 1060 [facility] [address] [place] [address] Hillary Arriaga, DEDRICK 85 [facility] 601 [place] [address] 05/13/2025 10:30 AM EST Office Visit [facility] 100 [facility] [address] [place] [address] Laurie Guzman PA-C 100 [place] [address] documented as of this encounter Visit Diagnoses Not on filedocumented in this encounter Care Teams Technology Assistant Relationship Specialty Start Date End Date Laurie Guzman PA-C 100 [place] [address] PCP - General Internal Medicine 07/23/23 Bernie Christianson MD 100 [place] [address] Referring Provider 05/12/24 Soham Pearce MD 4 [facility] [address] [place] [address] Physician Otolaryngology 05/12/24 Noe Huffman MD [address] [place] [address] Medicine Hospitalist 05/12/24 Nadeem Garcia ND [address] [place] [address] Referring Provider 05/12/24 Dennis Stephens MD [address] [place] [address] Referring Provider Urology 05/12/24 Terrell Morgan MD 6 [place] [address] Ophthalmology 05/12/24 Liz Bowser Physician Podiatry 04/27/24 documented as of this encounter
--- OUTSIDE RECORDS SUMMARY | 2025-03-16 13:14 | XMS_ITS | Encounter Summary ---
Author Organization [facility] Address 100 [place] [address] Care Team Providers Care Varnisher Name Role Phone Laurie Guzman PA-C Primary Care Provi walter Bernie Christianson MD Unavailable [phone] Soham Pearce MD Unavailable [phone] Noe Huffman MD Unavailable [phone] Nadeem Garcia ND Unavailable [phone] Dennis Stephens MD Unavailable Unavailable Terrell Morgan MD Unavailable [phone] Encounter Details Date Type Department Care Team (Late st Contact Info) Description 10/10/2023 Scanned Document [facility] ENDOCRINOLOGY SCAN Endocrinology, Scan Social History [...] Description 04/19/2025 1:00 PM EDT Pre-Admission Testing [facility] Pre-Admission Testing Center in [address] [place] [address] Hillary Arriaga, MANAGER MULTICULTURAL 85 [facility] 601 [place] [address] 05/13/2025 10:30 AM EST Office Visit [facility] 100 [facility] [address] [place] [address] Laurie Guzman PA-C 100 [place] [address] documented as of this encounter Visit Diagnoses Not on filedocumented in this encounter Care Teams Varnisher Relationship Specialty Start Date End Date Laurie Guzman PA-C 100 [place] [address] PCP - General Internal Medicine 07/23/23 Bernie Christianson MD 100 [place] [address] Referring Provider 05/12/24 Soham Pearce MD [address] [place] [address] [address] [place] [address] Physician Otolaryngology 05/12/24 Noe Huffman MD [address] [place] [address] Medicine Hospitalist 05/12/24 Nadeem Garcia ND [address] [place] [address] Referring Provider 05/12/24 Dennis Stephens MD [address] [place] [address] Referring Provider Urology 05/12/24 Terrell Morgan MD 632 [place] [address] Ophthalmology 05/12/24 Liz Bowser Physician Podiatry 04/27/24 documented as of this encounter
--- OUTSIDE RECORDS SUMMARY | 2025-03-16 13:14 | XMS_ITS | Clinical Summary ---
Author Organization [facility] Address [address] [place] [address] Care Team Providers Care Attorney Lawyer Name Role Phone Unavailable Primary Care Provider [...] age to complete this topic Insurance MEDICARE [facility] MEDICARE [facility] MEDICARE [facility]
--- OUTSIDE RECORDS SUMMARY | 2025-03-16 13:14 | XMS_ITS | Clinical Summary ---
Author Organization [facility] Address [address] [place] [address] Care Team Providers Care Cooling Tower Technician Name Role Phone Laurie Guzman Primary Care Provider [phone] Surgical History Surgery Date Site/Laterality Comments KNEE SURGERY Right PROCEDURE:KNEE SURGERY COLONOSCOPY PROCEDURE:COLONOSCOPY HAND SURGERY Bilateral PROCEDURE:HAND SURGERY HERNIA REPAIR PROCEDURE:HERNIA REPAIR;COMMENT:umbilical LARYNGOSCOPY 09/19/2022 Bilateral PROCEDURE:LARYNGOSCOPY;COMMENT:Procedure: DIRECT LARYNGOSCOPY WITH BIOPSY; Surgeon: Soham Pearce MD; Location: [facility]; Service: ENT; Laterality: Bilateral; Medical [...] age to complete this topic Care Teams Cooling Tower Technician Relationship Specialty Start Date End Date Laurie Guzman PA 300 [facility] 102 [facility] [place] [address] PCP - General Physician Curtain Hemmer Automatic 03/15/22
--- OUTSIDE RECORDS SUMMARY | 2025-03-16 13:14 | XMS_ITS | Encounter Summary ---
Author Organization [facility] Address [address] [place] [address] Care Team Providers Care Industrial Design Intern Name Role Phone Laurie Guzman PA-C Primary Care Provi walter Bernie Christianson MD Unavailable [phone] Soham Pearce MD Unavailable [phone] Noe Huffman MD Unavailable [phone] Nadeem Garcia ND Unavailable [phone] Dennis Stephens MD Unavailable Unavailable Terrell Morgan MD Unavailable Encounter Details Date Type Department Care Team (Late st Contact Info) Description 01/22/2024 Scanned Document [facility] [address] [place] [address] Laurie Guzman PA-C 100 [place] [address] Social History Tobacco Use Types [...] Description 04/19/2025 1:00 PM EDT Pre-Admission Testing [facility] Pre-Admission Testing Center in [place] 1060 [facility] [address] [place] [address] Hillary Arriaga, CORRECTION OFFICER PENITENTIARY [address] [place] [address] [place] [address] 05/13/2025 10:30 AM EST Office Visit [facility] 100 [facility] [address] [place] [address] Laurie Guzman PA-C 100 [place] [address] documented as of this encounter Visit Diagnoses Not on filedocumented in this encounter Care Teams Industrial Design Intern Relationship Specialty Start Date End Date Laurie Guzman PA-C 100 [place] [address] PCP - General Internal Medicine 07/23/23 Bernie Christianson MD [address] [place] [address] Referring Provider 05/12/24 Soham Pearce MD [address] [place] [address] [address] [place] [address] Physician Otolaryngology 05/12/24 Noe Huffman MD [address] [place] [address] Medicine Hospitalist 05/12/24 Nadeem Garcia ND [address] [place] [address] Referring Provider 05/12/24 Dennis Stephens MD [address] [place] [address] Referring Provider Urology 05/12/24 Terrell Morgan MD 6 [place] [address] Ophthalmology 05/12/24 Liz Bowser Physician Podiatry 04/27/24 documented as of this encounter
--- OUTSIDE RECORDS SUMMARY | 2025-03-16 13:14 | XMS_ITS | Encounter Summary ---
Author Organization [facility] Address [address] [place] [address] Care Team Providers Care Cast Iron Dipper Name Role Phone Laurie Guzman PA-C Primary Care Provi walter Bernie Christianson MD Unavailable [phone] Soham Pearce MD Unavailable [phone] Noe Huffman MD Unavailable [phone] Nadeem Garcia ND Unavailable [phone] Dennis Stephens MD Unavailable Unavailable Terrell Morgan MD Unavailable [phone] Encounter Details Date Type Department Care Team (Late st Contact Info) Description 05/13/2024 Scanned Document [facility] GASTRO SCAN Provider, Generic External Data Social [...] [facility] Pre-Admission Testing Center in [address] [place] [address] Hillary Arriaga, PHILOSOPHY FACULTY 85 [facility] 601 [place] [address] 05/13/2025 10:30 AM EST Office Visit [facility] 100 [facility] [address] [place] [address] Laurie Guzman PA-C 100 [place] [address] documented as of this encounter Visit Diagnoses Not on filedocumented in this encounter Care Teams Cast Iron Dipper Relationship Specialty Start Date End Date Laurie Guzman PA-C 100 [place] [address] PCP - General Internal Medicine 07/23/23 Bernie Christianson MD 100 [place] [address] Referring Provider 05/12/24 Soham Pearce MD [address] [place] [address] [address] [place] [address] Physician Otolaryngology 05/12/24 Noe Huffman MD [address] [place] [address] Medicine Hospitalist 05/12/24 Nadeem Garcia ND [address] [place] [address] Referring Provider 05/12/24 Dennis Stephens MD [address] [place] [address] Referring Provider Urology 05/12/24 Terrell Morgan MD 6 [place] [address] Ophthalmology 05/12/24 Liz Bowser Physician Podiatry 04/27/24 documented as of this encounter
--- OUTSIDE RECORDS SUMMARY | 2025-03-16 13:14 | XMS_ITS | Encounter Summary ---
Author Organization [facility] Address [address] [place] [address] Care Team Providers Care Commercial Intern Name Role Phone Laurie Guzman PA-C Primary Care Provi walter Bernie Christianson MD Unavailable [phone] Soham Pearce MD Unavailable [phone] Noe Huffman MD Unavailable [phone] Nadeem Garcia ND Unavailable [phone] Dennis Stephens MD Unavailable Unavailable Terrell Morgan MD Unavailable [phone] Encounter Details Date Type Department Care Team (Late st Contact Info) Description 05/20/2024 Scanned Document [facility] OTOLARYNGOLGY SCAN Otolaryngology, Scan Social History Tobacco [...] Description 04/19/2025 1:00 PM EDT Pre-Admission Testing [facility] Pre-Admission Testing Center in [place] [address] [facility] [address] [place] [address] Hillary Arriaga, CLUTCH ASSEMBLER 85 [facility] 601 [place] [address] 05/13/2025 10:30 AM EST Office Visit [facility] 100 [facility] [address] [place] [address] Laurie Guzman PA-C 100 [place] [address] documented as of this encounter Visit Diagnoses Not on filedocumented in this encounter Care Teams Commercial Intern Relationship Specialty Start Date End Date Laurie Guzman PA-C 100 [place] [address] PCP - General Internal Medicine 07/23/23 Bernie Christianson MD 100 [place] [address] Referring Provider 05/12/24 Soham Pearce MD [address] [place] [address] [address] [place] [address] Physician Otolaryngology 05/12/24 Noe Huffman MD [address] [place] [address] Medicine Hospitalist 05/12/24 Nadeem Garcia ND [address] [place] [address] Referring Provider 05/12/24 Dennis Stephens MD [address] [place] [address] Referring Provider Urology 05/12/24 Terrell Morgan MD 6 [place] [address] Ophthalmology 05/12/24 Liz Bowser Physician Podiatry 04/27/24 documented as of this encounter
--- OUTSIDE RECORDS SUMMARY | 2025-03-16 13:14 | XMS_ITS | Encounter Summary ---
Author Organization [facility] Address [address] [place] [address] Care Team Providers Care Clay Washer Name Role Phone Laurie Guzman PA-C Primary Care Provi walter Bernie Christianson MD Unavailable [phone] Soham Pearce MD Unavailable [phone] Noe Huffman MD Unavailable [phone] Nadeem Garcia ND Unavailable [phone] Dennis Stephens MD Unavailable Unavailable Terrell Morgan MD Unavailable [phone] Encounter Details Date Type Department Care Team (Late st Contact Info) Description 12/31/2023 Scanned Document [address] [phone] Gastroenterology, Scan Social History Tobacco Use Types [...] [facility] Pre-Admission Testing Center in [place] [address] [facility] [address] [place] [address] Hillary Arriaga, REVENUE INVESTIGATOR 85 [facility] 601 [place] [address] 05/13/2025 10:30 AM EST Office Visit [facility] 100 [facility] [address] [place] [address] Laurie Guzman PA-C 100 [place] [address] documented as of this encounter Visit Diagnoses Not on filedocumented in this encounter Care Teams Clay Washer Relationship Specialty Start Date End Date Laurie Guzman PA-C 100 [place] [address] PCP - General Internal Medicine 07/23/23 Bernie Christianson MD 100 [place] [address] Referring Provider 05/12/24 Soham Pearce MD [address] [place] [address] [address] [place] [address] Physician Otolaryngology 05/12/24 Noe Huffman MD [address] [place] [address] Medicine Hospitalist 05/12/24 Nadeem Garcia ND 800 [facility] [place] [address] Referring Provider 05/12/24 Dennis Stephens MD [address] [place] [address] Referring Provider Urology 05/12/24 Terrell Morgan MD 6 [place] [address] Ophthalmology 05/12/24 Liz Bowser Physician Podiatry 04/27/24 documented as of this encounter
--- OUTSIDE RECORDS SUMMARY | 2025-03-16 13:14 | XMS_ITS | Clinical Summary ---
Author Organization [facility] Address 100 [place] [address] Care Team Providers Care City Director Name Role Phone Laurie Guzman PA-C Primary Care Provi walter Bernie Christianson MD Unavailable [phone] Soham Pearce MD Unavailable [phone] Noe Huffman MD Unavailable [phone] Nadeem Garcia ND Unavailable [phone] Dennis Stephens MD Unavailable Unavailable Terrell Morgan MD Unavailable [phone] Allergies Active Allergy Reactions Criticality Noted Date [...] polyps 07/23/2023 Overview (07/26/2023): Follows with [facility]. 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 Mcneill. No evidence of [...] well as chemotherapy. 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 Follow-up with radiation [facility]ology [facility]. Follows with Soham Pearce. Who [...] Encounters Date Type Department Care Team Description 03/12/2025 Scanned Document [facility] [address] [place] [address] Otolaryngology , Scan 03/03/2025 Orders Only [facility] 12[address] [place] [address] Orthopedic Surgery, Scan 02/23/2025 10:45 AM EDT Office Visit [facility] 100 [facility] [address] [place] [address] Laurie Guzman PA-C Acute pain of left knee (Primary Dx) 02/23/2025 Travel 01/27/2025 Scanned Document [facility] 1290 [place] [address] Orthopedic Surgery, Scan 01/15/2025 Scanned Document [facility] 1290 [facility] [address] Urology, Scan 01/05/2025 Scanned Document [facility] 12[address] [facility] [address] Orthopedic Surgery, Scan from Last 3 Months [...] [facility] Pre-Admission Testing Center in [place] [address] [place] [address] [address] [place] [address] Hillary Arriaga, DEDRICK [address] [facility] 601 [place] [address] 05/13/2025 10:30 AM EST Office Visit [facility] 100 [facility] [address] [place] [address] Laurie Guzman PA-C 100 [place] [address] Health Maintenance Due Date Last Done Comments [...] Vaccine 01/29/2025 05/12/2024, 06/20/2023 COVID-19 Vaccine ( - season) 2025 Hemoglobin A1C 04/29/2025 10/28/2024, 04/01, [...] 5.6 4.0 - 6.0 % Lot Number [id number] [employer] Pass Blood 10/28/2024 3:44 PM EDT Laurie Guzman PA-C POINT OF CARE TEST ORDERABLES Final Result from Last 3 Months or Most Recently Relevant to Health Maintenance Insurance MEDICARE PART A & B [place] [id number] Care Teams City Director Relationship Specialty Start Date End Date Laurie Guzman PA-C 100 [place] [address] PCP - General Internal Medicine 07/23/23 Bernie Christianson MD 100 [place] [address] Referring Provider 05/12/24 Soham Pearce MD [address] [facility] [address] [place] [address] Physician Otolaryngology 05/12/24 Noe Huffman MD [address] [place] [address] Medicine Hospitalist 05/12/24 Nadeem Garcia ND 800 [place] [address] Referring Provider 05/12/24 Dennis Stephens MD [address] [place] [address] Referring Provider Urology 05/12/24 Terrell Morgan MD 6 [place] [address] Ophthalmology 05/12/24 Liz Bowser Physician Podiatry 04/27/24
--- OUTSIDE RECORDS SUMMARY | 2025-03-16 13:14 | XMS_ITS | Encounter Summary ---
Author Organization [facility] Address 100 [place] [address] Care Team Providers Care Rubber Goods Assembler Name Role Phone Laurie Guzman PA-C Primary Care Provi walter Bernie Christianson MD Unavailable [phone] Soham Pearce MD Unavailable [phone] Noe Huffman MD Unavailable [phone] Nadeem Garcia ND Unavailable [phone] Dennis Stephens MD Unavailable Unavailable Terrell Morgan MD Unavailable [phone] Encounter Details Date Type Department Care Team (Late st Contact Info) Description 01/16/2024 Scanned Document [facility] 12[address] [place] [address] Urology, Scan Social History Tobacco Use Types [...] PM EDT Pre-Admission Testing [facility] Pre-Admission Testing Center in [address] [place] [address] [place] [address] Hillary Arriaga, MACHINE SHOP REPAIR TECHNICIAN 85 [facility] 601 [place] [address] 05/13/2025 10:30 AM EST Office Visit [facility] 100 [facility] [address] [place] [address] Laurie Guzman PA-C 100 [place] [address] documented as of this encounter Visit Diagnoses Not on filedocumented in this encounter Care Teams Rubber Goods Assembler Relationship Specialty Start Date End Date Laurie Guzman PA-C 100 [place] [address] PCP - General Internal Medicine 07/23/23 Bernie Christianson MD 100 [place] [address] Referring Provider 05/12/24 Soham Pearce MD [address] [place] [address] [address] [place] [address] Physician Otolaryngology 05/12/24 Noe Huffman MD [address] [place] [address] Medicine Hospitalist 05/12/24 Nadeem Garcia ND [address] [place] [address] Referring Provider 05/12/24 Dennis Stephens MD [address] [place] [address] Referring Provider Urology 05/12/24 Terrell Morgan MD 6 [place] [address] Ophthalmology 05/12/24 Liz Bowser Physician Podiatry 04/27/24 documented as of this encounter
--- OUTSIDE RECORDS SUMMARY | 2025-03-16 13:14 | XMS_ITS | Continuity of Care Document ---
Author Organization [facility] Address 2 [facility] 210 [place] [address] Phone [phone] Care Team Providers Care Process Engineering Technician Name Role Phone Laurie Guzman Care Team Information Re ceiver [phone] Problems Active Problems Provider Date Essential hypertension [...] Medications SIG Qnty Indications Ordering Provider Date Zebork04ac Tablets one tab by mouth as needed 5tabs Kris Stoner M.D. 02/27/2023 Atorvastatin Apegfvp14bx Tablets Take 1 Tablet By Mouth Everyday AT Bedtime Laurie Guzman PPaola Alfuzosin HCL ER10mg Tablets ER 24HR Take 1 Tablet By Mouth Every Day Unknown Citalopram Ktbditdezhxk26th Tablets Take 2 Tablet By Mouth Every Day Laurie Guzman P.A. Albuterol Sulfate QTT991(90Base) mcg/Act Aerosol Inhale 2 puff Every 4 Hours as Needed For Shortness Of Breath Or Wheezing Noe Huffamn Ozrrnowidw878kz Capsules one prn Unknown Rnmkuarqyoj9lr Tablets 1 by mouth every day Unknown Losartan Yaurdmtpn34bc Tablets Take 1 Tablet By Mouth Every [...] Inhouse Glucose Fingerstick 139 Free Testosterone 05/30/2023 [facility] Testosterone, Total, LC/MS 395.3 1 Percent Free Testosterone 4.79 High 2 Free Testosterone, Equilibrium 18.93 3 Glucose Fingerstick 02/27/2023 Inhouse Glucose Fingerstick 137 Testosterone 12/27/2022 [facility] Testosterone 242 ng/dL Low (280-800 ) TSH With Reflex To FT4 10/02/2022 [facility] TSH With Reflex To FT4 1.86 uIU/mL (0.4-4.2 ) Bioavailable Testosterone 10/02/2022 [facility] Testosterone, Total, LC/MS 178.9 Low 4 Testosterone,Fr e e Weakly Bound 74.4 5 Testosterone,Fr e e Weakly % 41.6 6 Prolactin With Reflex To Monomeric 10/02/2022 [facility] Prolactin 13.3 NG/ML (4.0-15. 2) Prolactin, Monomeric 12.9 ng/dL Prolactin, Percent Monomeric 97 % 7 LH 10/02/2022 [facility] LH 5.2 MIU/ML (1.5-12. 4) 8 FSH 10/02/2022 [facility] FSH 4.3 MIU/ML (1.5-12. 4) 9 Free Testosterone Female And Juvenile 10/02/2022 [facility] Testosterone, Serum Total Pending SHBG Pending nmol/L (19-76) Free Testosterone, Estimated Pending ng/dL (3.7-14. 7) [address]35[address]-2 Test Cancelled, <SEE NOTE> 10 Testosterone,Oscar e & Total (Males > 15Yr) 10/02/2022 [facility] Testosterone 215 ng/dL Low (280-800 ) SHBG 14.3 nmol/L Low (19-76) Free Testosterone, Estimated 5.78 ng/dL (3.7-14. 7) Glucose Fingerstick 10/02/2022 Inhouse Glucose Fingerstick 199 1 Reference range: 264 .0 to 916.0 Unit: ng/dL (NOTE) This [facility] LC/MS-MS method is currently certified by the CDC Hormone Standardization Program (HoSt). Adult male reference interval is based on a population of healthy nonobese males (BMI <30) between 19 and 39 years old. Petty, et.al. EM 2017,102;2782-9817. PMID: 07630450. This test was developed and its performance characteristics determined by [facility]. It has not been cleared or approved by the Food and Drug Administration. 2 Reference range: 1.5 0 to 4.20 Unit: % 3 Reference range: 5.0 0 to 21.00 Unit: ng/dL Test performed at [address] [address] 4 Reference range: 264 .0 to 916.0 Unit: ng/dL (NOTE) This [facility] LC/MS-MS method is currently certified by the CDC Hormone Standardization Program (HoSt). Adult male reference interval is based on a population of healthy nonobese males (BMI <30) between 19 and 39 years old. Petty, et.al. EM 2017,102;7757-9483. PMID: 39188601. This test was developed and its performance characteristics determined by [facility]. It has not been cleared or approved by the Food and Drug Administration. 5 Reference range: 40. 0 to 250.0 Unit: ng/dL 6 Reference range: 9.0 to 46.0 Unit: % (NOTE) This test was developed and its performance characteristics determined by [facility]. It has not been cleared or approved by the Food and Drug Administration. Test performed at [address] [address] 7 SAMPLE CONTAINS MOST LY MONOMERIC PROLACTIN [...]
--- OUTSIDE RECORDS SUMMARY | 2025-03-16 13:14 | XMS_ITS | Encounter Summary ---
Author Organization [facility] Address 100 [place] [address] Care Team Providers Care Freelance Graphic Designer Name Role Phone Laurie Guzman PA-C Primary Care Provi walter Bernie Christianson MD Unavailable [phone] Soham Pearce MD Unavailable [phone] Noe Huffman MD Unavailable [phone] Nadeem Garcia ND Unavailable [phone] Dennis Stephens MD Unavailable Unavailable Terrell Morgan MD Unavailable [phone] Encounter Details Date Type Department Care Team (Late st Contact Info) Description 03/12/2025 Scanned Document [facility] 1290 [place] [address] Otolaryngology, Scan Social History Tobacco Use Types [...] Description 04/19/2025 1:00 PM EDT Pre-Admission Testing [facility] Pre-Admission Testing Center in [place] [address] [facility] [address] [place] [address] Hillary Arriaga, DEDRICK 85 [facility] 601 [place] [address] 05/13/2025 10:30 AM EST Office Visit [facility] 100 [facility] [address] [place] [address] Laurie Guzman PA-C 100 [place] [address] documented as of this encounter Visit Diagnoses Not on filedocumented in this encounter Care Teams Freelance Graphic Designer Relationship Specialty Start Date End Date Laurie Guzman PA-C 100 [place] [address] PCP - General Internal Medicine 07/23/23 Bernie Christianson MD 100 [place] [address] Referring Provider 05/12/24 Soham Pearce MD [address] [place] [address] [address] [place] [address] Physician Otolaryngology 05/12/24 Noe Huffman MD [address] [place] [address] Medicine Hospitalist 05/12/24 Nadeem Garcia ND [address] [place] [address] Referring Provider 05/12/24 Dennis Stephens MD [address] [place] [address] Referring Provider Urology 05/12/24 Terrell Morgan MD 6 [place] [address] Ophthalmology 05/12/24 Liz Bowser Physician Podiatry 04/27/24 documented as of this encounter
--- OUTSIDE RECORDS SUMMARY | 2025-03-16 13:14 | XMS_ITS | Encounter Summary ---
Author Organization [facility] Address 100 [place] [address] Care Team Providers Care Solderer Assembler Name Role Phone Laurie Guzman PA-C Primary Care Provi walter Bernie Christianson MD Unavailable [phone] Soham Pearce MD Unavailable [phone] Noe Huffman MD Unavailable [phone] Nadeem Garcia ND Unavailable [phone] Dennis Stephens MD Unavailable Unavailable Terrell Morgan MD Unavailable [phone] Encounter Details Date Type Department Care Team (Late st Contact Info) Description 06/15/2024 Scanned Document [facility] [address] [place] [address] Pulmonary, Scan Social History Tobacco Use Types [...] Testing [facility] Pre-Admission Testing Center in [place] 1060 [facility] [address] [place] [address] Hillary Arriaga, COURT MANAGER 85 [facility] 601 [place] [address] 05/13/2025 10:30 AM EST Office Visit [facility] 100 [facility] [address] [place] [address] Laurie Guzman PA-C 100 [place] [address] documented as of this encounter Visit Diagnoses Not on filedocumented in this encounter Care Teams Solderer Assembler Relationship Specialty Start Date End Date Laurie Guzman PA-C 100 [place] [address] PCP - General Internal Medicine 07/23/23 Bernie Christianson MD [address] [place] [address] Referring Provider 05/12/24 Soham Pearce MD 4 [facility] [address] [place] [address] Physician Otolaryngology 05/12/24 Noe Huffman MD [address] [place] [address] Medicine Hospitalist 05/12/24 Nadeem Garcia ND [address] [place] [address] Referring Provider 05/12/24 Dennis Stephens MD [address] [place] [address] Referring Provider Urology 05/12/24 Terrell Morgan MD 6 [place] [address] Ophthalmology 05/12/24 Liz Bowser Physician Podiatry 04/27/24 documented as of this encounter
--- OUTSIDE RECORDS SUMMARY | 2025-03-16 13:14 | XMS_ITS | Patient Health Record ---
Author Organization [facility] Address [address] [place] [address] Care Team Providers Care Financial Administration Officer Name Role Phone Laurie Manjarrez PA-C Primary Care Provider Nicole acBrenda Cole Unavailable [phone] Allergies Allergen (clinical drug ingredient) Drug/Non Drug [...] Problem Acquired hammer toe of right foot (44634669759 62624) Other hammer toe(s) (acquired), right foot (M20.41) Active confirmed Problem Acquired hammer toe of left foot (42309109457 71361) Other hammer toe(s) (acquired), left foot (M20.42) [...] Ulcer of toe of right foot (disorder) (60714758690 912681) Skin ulcer of toe of right foot, limited to breakdown of skin (L97.511) Active confirmed Response to treatment Problem Ulcer of toe of left foot (disorder) (64095312604 956707) Skin ulcer of toe of left foot, limited to breakdown of skin (L97.521) Active confirmed Response to treatment Vital Signs Height 5ft6in in 04/16/2024 Weight 225 lbs 04/16/2024 BMI 36.31 kg/m2 04/16/2024 Procedures Procedure Date Ordered Date Performed Result Body Sit e 97567-Aypihntd Plate 04/03/2024 N/A 02989-Chyyorje Plate Each Additional 04/03/2024 N/A 49097- Debride <25 sq cm 04/16/2024 N/A Encounters Encounter Location Date Provider Diagnosis [facility] [address] 04/03/2024 Brenda Black Ingrown nail L60.0 ; Toe pain, left M79.675 and Pain of toe of right foot M79.674 [facility] [address] [address] 04/16/2024 Brenda Black Skin ulcer of toe of left foot, limited to breakdown of skin L97.521 and Skin ulcer of toe of right foot, limited to breakdown of skin L97.[address] [facility] [address] 03/30/2024 Brenda Black Assessments Encounter Date Diagnosis (ICD Code) Assessment Notes Treatment Notes Treatment Clinical Notes Section Notes 04/03/2024 Toe pain, left (ICD-10 - M79.675) [...] INSTRUCTIONS.p df (WOUND CARE INSTRUCTIONS.p df) 04/03/2024 Ingrown nail (ICD-10 - L60.0) 04/03/2024 Pain of toe of right foot (ICD-10 - M79.674) Plan Of Treatment Pending Test Test Name Order Date 89964-Qivmixql Plate 06/21/2022 01714-Nzhxkrvi Plate 04/03/2024 82807-Aaypnyod Plate Each Additional 09/2023 98175-Cgkkqfnp Plate Each Additional 77064- Debride <25 sq cm 06/21/2022 55306- Debride <25 sq cm 07/12/2022 60969- Debride <25 sq cm 04/16/2024 Insurance Providers Payer Name Payer Address Payer Phone Subscriber Number Group Number Insured Name Patient Relationship to Insured Coverage Start Date Coverage End Date Medicare [employer] [address] [place] [address] [id number] Alexander Uriostegui Self - patient is the insured [employer] [facility] [address] [place] [address] [phone] [id number] Alexander Uriostegui Self - patient is the insured Medical (General) History Medical History History ICD Code Hepatitis High blood pressure Measles Mumps Chicken pox Back,Hip,and Knee pain covid-19 Diverticulosis Lung disease (ILD) Sciatica Pulmonary fibrosis Surgical History Surgery Date(Month/Year) hernia 2009 meniscus 2020 carpal tunnel surgery, bilateral 2020
[2025-04-30 10:04] VITALS: BMI 39.1
[2025-04-30 11:13] VITALS: BP 165/75; PULSE 76; RESP 17; O2SAT 97
[2025-05-14 06:37] VITALS: BP 164/75; PULSE 75; RESP 16; TEMP 36.7; O2SAT 98
[2025-05-14] MEDS: Lactated Ringers 1,000 ML 100 ML IVCONT (06:37)
[2025-05-14 06:40] LABS: Glucose, Whole Blood 119 mg/dL (60-115)
--- NOTE | 2025-05-14 07:15 | HO.ANESPROP2 ---
Documented by User: Alison Mccartney NP 04/30/25 13:13 HPI - Anesthesia Eval Consult details Narrative: 69 yr old male for left ?Knee Arthroscopy,with partial medial meniscectomy scheduled for 05/14/25, seen in PAT 04/30/25 No recent illness. No CP or SOB with limited physical activity Saw [facility]-admission testing clinic 04/19/25, deemed acceptable risk for procedure. 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 Pearce (ENT) or Dr. Garcia (rad-onc); s/p radiation completed 11/2022. Saw Dr. Pearce 03/2025, had flexible laryngoscopy showing normal right/left nasal cavities. Denies residual trouble swallowing or any trouble moving his neck or tongue. Covid complication 05/2022: Developed pulmonary fibrosis after mechanical [place] [facility] [facility] [place], last visit 01/2025, rare inhaler use. Using O2 at bedtime only. PMFSH Active Problems Active Problems: All Active Problems (Updated 04/30/25 @ 09:49 by Roro Valladares RN) Tear of medial meniscus of left knee (Acute) Osteoarthritis of right knee (Acute) Osteoarthritis of left knee (Acute) Bilateral knee pain (Acute) Right shoulder pain (Acute) COPD (chronic obstructive pulmonary disease) (Acute) Head and neck cancer (Acute) ILD (interstitial lung disease) (Acute) Pneumonitis (Acute) Pulmonary nodule (Acute) Lower extremity edema (Acute) Dyspnea (Acute) Chronic bronchitis (Acute) Cough (Acute) Chronic restrictive lung disease (Acute) COVID-19 (Acute) Pulmonary fibrosis (Acute) Past Medical History Medical History (Updated 04/30/25 @ 09:49 by Roro Valladares, RN) Hx of radiation therapy Hepatitis A Stenosis of esophagus Diabetes Renal mass Morbid obesity Depression HTN (hypertension) Hyperlipidemia History of pharyngeal cancer Diverticulitis Colon polyps BPH (benign prostatic hyperplasia) Arthritis COPD (chronic obstructive pulmonary disease) Head and neck cancer ILD (interstitial lung disease) Pneumonitis Pulmonary nodule Lower extremity edema Dyspnea Chronic bronchitis Cough Chronic restrictive lung disease COVID-19 Pulmonary fibrosis Family History Family history of problems with anesthesia: No Surgical History Surgical History (Updated 04/30/25 @ 09:57 by Roro Valladares RN) H/O colonoscopy Hx of knee surgery History of bilateral carpal tunnel release Hx of umbilical hernia repair History of Problems with Anesthesia: No Social History Social History Household Members: Spouse Household Members Other:: Kristen - Patient Tobacco Use Status: Never used Tobacco Second Hand Smoke Exposure: No Use of substances other than those prescribed or required for medical reasons: No Have you been hit, kicked, punched, or otherwise hurt by someone within the past year? If so, by whom?: No Are you DNR?: No Advance Directives: No Advance Directives Information Provided: Yes Advance Directives on File: No Current occupational status: retired Current occupation: Right hand dominant Meds Allergies Allergy/AdvReac Type Severity Reaction Status Date / Time lisinopril Allergy Unknown Unknown Verified 03/10/25 10:56 Home Medications ?Medication ?Instructions ?Recorded ?Confirmed ?Last Taken ?Type alfuzosin 10 mg tablet,extended 10 mg PO BEDTIME 08/25/21 04/29/25 Unknown History release 24 hr aspirin 81 mg tablet,delayed 81 mg PO DAILY 08/25/21 05/14/25 05/08/25 History release Oxygen Home Use 07/31/22 03/10/25 Unknown History atorvastatin 10 mg tablet 10 mg PO BEDTIME 04/29/23 04/29/25 Unknown History citalopram 10 mg tablet 20 mg PO DAILY 04/29/23 04/29/25 Unknown History finasteride 5 mg tablet 5 mg PO DAILY 04/29/23 04/29/25 Unknown History losartan 50 mg tablet 25 mg PO DAILY 04/29/23 04/29/25 Unknown History Lactobacillus rhamnosus GG 10 1 cap PO BEDTIME 04/29/25 04/29/25 Unknown History billion cell capsule (Culturelle) albuterol sulfate 90 mcg/actuation 2 puff inhalation QID PRN 04/29/25 04/29/25 Unknown History aerosol inhaler Shortness Of Breath Or Wheezing cyanocobalamin (vitamin B-12) 1,000 mcg PO DAILY 04/29/25 04/29/25 Unknown History 1,000 mcg tablet folic acid 1 mg tablet 1 mg PO DAILY 04/29/25 04/29/25 Unknown History budesonide 0.5 mg/2 mL suspension 0.5 mg inhalation DAILY PRN 04/30/25 04/30/25 Unknown History for nebulization Shortness Of Breath Or Wheezing ibuprofen 600 mg tablet 600 mg PO QID PRN Pain 04/30/25 05/14/25 05/08/25 History Exam Height,Weight and Vital Signs: Height 5 ft 5 in Weight 106.594 kg Pertinent Lab Results Pertinent Lab Results: 04/19/25 Glucose 98 BUN 19 Creat 0.77 Sodium 137 Potassium 4.1 Calcium 9.1 WBC 5.5 RBC 4.41 Hgb 12.8 Hct 39.4 Plt 160 A1C 6.0% Narrative Narrative: EKG 04/19/25 Normal sinus rhythm, normal ECG, rate 71 ECHO 2021 Definity contrast used delineate endocardial borders. Normal left ventricular chamber size. Concentric hypertrophy. Normal regional wall motion. EF 60%. Trace mitral insufficiency. Chest CT 03/2024 IMPRESSION: 1. Stable benign pulmonary nodules without new or enlarging suspicious nodule. 2. Mild centrilobular emphysema. Stable mosaic attenuation of the lung parenchyma, most likely on the basis of underlying air trapping. Differential includes constrictive (obliterative) bronchiolitis, hypersensitivity pneumonitis, as well as less commonly bronchial asthma, vasculitis, and chronic PE. 3. No active lung disease present. 4. Ancillary findings as detailed. Airway Mallampati Class: II TM Dist: >3cm Neck ROM: Full Denture: Upper Partial: Lower Heart: RRR Lungs: CTAB Assessment and Plan Final Anesthetic Review Family History of Problems with Anesthesia: No History of Problems with Anesthesia: No Documented by User: Lenka Torres DO 05/14/25 07:58 COUNTS INCLUDE 234 BEDS AT THE [facility] Past Medical History Medical History (Updated 04/30/25 @ 09:49 by Roro Valladares RN) Hx of radiation therapy Hepatitis A Stenosis of esophagus Diabetes Renal mass Morbid obesity Depression HTN (hypertension) Hyperlipidemia History of pharyngeal cancer Diverticulitis Colon polyps BPH (benign prostatic hyperplasia) Arthritis COPD (chronic obstructive pulmonary disease) Head and neck cancer ILD (interstitial lung disease) Pneumonitis Pulmonary nodule Lower extremity edema Dyspnea Chronic bronchitis Cough Chronic restrictive lung disease COVID-19 Pulmonary fibrosis Family History Family history of problems with anesthesia: No Surgical History Surgical History (Updated 04/30/25 @ 09:57 by Roro Valladares RN) H/O colonoscopy Hx of knee surgery History of bilateral carpal tunnel release Hx of umbilical hernia repair History of Problems with Anesthesia: No Social History Social History Household Members: Spouse Household Members Other:: Kristen - Patient Tobacco Use Status: Never used Tobacco Second Hand Smoke Exposure: No Use of substances other than those prescribed or required for medical reasons: No Have you been hit, kicked, punched, or otherwise hurt by someone within the past year? If so, by whom?: No Are you DNR?: No Advance Directives: No Advance Directives Information Provided: Yes Advance Directives on File: No Current occupational status: retired Current occupation: Right hand dominant Meds Allergies Allergy/AdvReac Type Severity Reaction Status Date / Time lisinopril Allergy Unknown Unknown Verified 03/10/25 10:56 Home Medications ?Medication ?Instructions ?Recorded ?Confirmed ?Last Taken ?Type alfuzosin 10 mg tablet,extended 10 mg PO BEDTIME 08/25/21 04/29/25 Unknown History release 24 hr aspirin 81 mg tablet,delayed 81 mg PO DAILY 08/25/21 05/14/25 05/08/25 History release Oxygen Home Use 07/31/22 03/10/25 Unknown History atorvastatin 10 mg tablet 10 mg PO BEDTIME 04/29/23 04/29/25 Unknown History citalopram 10 mg tablet 20 mg PO DAILY 04/29/23 04/29/25 Unknown History finasteride 5 mg tablet 5 mg PO DAILY 04/29/23 04/29/25 Unknown History losartan 50 mg tablet 25 mg PO DAILY 04/29/23 04/29/25 Unknown History Lactobacillus rhamnosus GG 10 1 cap PO BEDTIME 04/29/25 04/29/25 Unknown History billion cell capsule (Culturelle) albuterol sulfate 90 mcg/actuation 2 puff inhalation QID PRN 04/29/25 04/29/25 Unknown History aerosol inhaler Shortness Of Breath Or Wheezing cyanocobalamin (vitamin B-12) 1,000 mcg PO DAILY 04/29/25 04/29/25 Unknown History 1,000 mcg tablet folic acid 1 mg tablet 1 mg PO DAILY 04/29/25 04/29/25 Unknown History budesonide 0.5 mg/2 mL suspension 0.5 mg inhalation DAILY PRN 04/30/25 04/30/25 Unknown History for nebulization Shortness Of Breath Or Wheezing ibuprofen 600 mg tablet 600 mg PO QID PRN Pain 04/30/25 05/14/25 05/08/25 History Exam Exam Date and Time: 05/14/25 0715 Height,Weight and Vital Signs: Vital Signs Pulse Rate 76 04/30/25 11:13 Respiratory Rate 17 04/30/25 11:13 Blood Pressure 165/75 H 04/30/25 11:13 Pulse Oximetry 97 04/30/25 11:13 Oxygen Delivery Method Room Air 04/30/25 11:13 Temperature 98.1 F 05/14/25 06:37 Pulse Rate 75 05/14/25 06:37 Respiratory Rate 16 05/14/25 06:37 Blood Pressure 164/75 H 05/14/25 06:37 Pulse Oximetry 98 05/14/25 06:37 Oxygen Delivery Method Room Air 05/14/25 06:37 Height 5 ft 5 in Weight 106.594 kg Airway Mallampati Class: II TM Dist: >3cm Neck ROM: Full Denture: Upper Partial: Lower Heart: S1S2 Assessment and Plan Assessment Anesthesia Assessment: Anesthesia Plan Discussed and Chart Reviewed Final Anesthetic Review Family History of Problems with Anesthesia: No History of Problems with Anesthesia: No NPO: Yes ASA Class: III Final Preanesthetic Review: No Changes in Pt Med Stat, Meds/Allgs Chart Reviewed, Consent Obtained/Reviewed and Anes Risks/Benef Reviewed Patient Risk: Intermediate Procedure Risk: Low Anesthetic Plan Anesthetic Plan: GA and Agree w/ Assess. and Plan Disposition: Standard PACU
[2025-05-14 08:25] VITALS: BP 154/60; PULSE 103; RESP 15; TEMP 36.9; O2SAT 95
--- NOTE | 2025-05-14 08:28 | P.OP_ITS ---
Operative Note Operative Note Date of Service: 05/14/25 Narrative: After the patient was identified as Alexander Uriostegui and his left knee was initialed by myself they were brought to the operating room where general anesthesia was induced by the anesthesiologist in routine fashion. The patient was given 2 g of IV Ancef preoperatively for infection prophylaxis. The patient's left lower extremity was prepped and draped in sterile fashion. A formal time-out was completed. Marcaine was injected into the planned incision sites as well as the patient's left knee joint. A #11 scalpel blade was used to make an anterolateral portal 1 cm proximal to the joint line and 1 cm lateral to the pa tellar tendon. Blunt trocar technique was used to enter the suprapatellar pouch with the knee in extension. Diagnostic arthroscopy showed multiple bands of thickened plica which would be excised at the end of the procedure. There were no loose bodies or abnormalities found in either the medial or lateral gutters. The articular surface of the patella showed diffuse grades 2 and 3 degenerative changes. The trochlear groove articular surface showed diffuse grades 1 and 2 degenerative changes. The patient's knee was flexed to 45 degrees and a valgus force was placed upon it. The medial compartment was entered. An anteromedial portal was made 1 cm proximal to the joint line and 1 cm medial to the patellar tendon. Probing of the medial meniscus showed a radial tear of the posterior horn. A partial medial meniscectomy was performed using the arthroscopic shaver. Following the partial meniscectomy the remainder of the meniscus tissue was stable. There were diffuse grades 2 and 3 degenerative changes of the medial femoral condyle as well as grades 1 and 2 degenerative changes of the medial tibial plateau. The articular surface of the medial femoral condyle was then made smooth using the arthroscopic shaver. The articular surface of the medial tibial plateau was already smooth so no chondroplasty was indicated. The patient's knee was placed into a neutral position. There was no injury to the anterior cruciate ligament. The patient's knee was then placed in the figure of 4 position and the lateral compartment was entered. There was no evidence of lateral meniscus tearing. There were minimal degenerative changes of the lateral femoral condyle and lateral tibial plateau. The patient's knee was once again brought into extension and the suprapatellar pouch was entered. The arthroscopic shaver and the ArthroCare Wand were used to excise the thickened bands of plica. The undersurface of the patella was then made smooth using the arthroscopic shaver. The articular surface of the trochlear groove was already smooth so no chondroplasty was indicated. The knee joint was irrigated and then drained. All arthroscopic instruments were removed. The 2 portals were closed with 3-0 nylon interrupted suture. The knee joint was injected with Marcaine. Dry sterile dressing and Yordy bandages were placed over the patient's knee. The patient was awoken and extubated in the operating room. The patient was transferred to the recovery room in stable condition.
--- NOTE | 2025-05-14 08:28 | PM.OP ---
Brief Operative Note Date of Service: 05/14/25 Pre-op diagnosis: Left knee medial meniscus tear, left knee degenerative joint disease Post-op diagnosis: same Procedure: Left knee arthroscopic partial medial meniscectomy, left knee arthroscopic chondroplasty of the undersurface of the patella as well as the medial femoral condyle Implants: none Surgeon: Hebert Heredia MD Anesthesia: GLMA Was an Orthopaedic General used for this Procedure?: No Estimated blood loss (mL): 10 Pathology: none sent Condition: stable Disposition: PACU
[2025-05-14 08:30] VITALS: BP 159/64; PULSE 97; RESP 16; O2SAT 93
[2025-05-14 08:35] VITALS: BP 152/78; PULSE 103; RESP 18; O2SAT 95
[2025-05-14 08:40] VITALS: BP 161/59; PULSE 90; RESP 14; O2SAT 96
[2025-05-14] MEDS: oxyCODONE HCl Immed Release 5 MG TABLET PO (08:44)
[2025-05-14 08:55] VITALS: BP 162/52; PULSE 90; RESP 14; TEMP 36.2; O2SAT 98
== END 2025-05-14 09:20 | disposition home or self-care (01) ==
PROVIDERS: PCP Physician Assistant Medical; Visit Provider Orthopaedic Surgery
PROC: (CPT 29870; principal; 2025-05-14 07:30)
DX: M23.222 Derangement of posterior horn of medial meniscus due to old tear or injury, left knee (principal); M25.562 Pain in left knee; M17.12 Unilateral primary osteoarthritis, left knee; M23.52 Chronic instability of knee, left knee; M67.52 Plica syndrome, left knee; J44.9 Chronic obstructive pulmonary disease, unspecified; J84.10 Pulmonary fibrosis, unspecified; J84.9 Interstitial pulmonary disease, unspecified; R91.1 Solitary pulmonary nodule; E11.9 Type 2 diabetes mellitus without complications; Z85.810 Personal history of malignant neoplasm of tongue; Z92.3 Personal history of irradiation; Z98.890 Other specified postprocedural states; Z79.82 Long term (current) use of aspirin; Z79.51 Long term (current) use of inhaled steroids; Z79.899 Other long term (current) drug therapy; Z99.81 Dependence on supplemental oxygen; Z88.8 Allergy status to other drugs, medicaments and biological substances
CPT/HCPCS: 29881; 82947; J0131; J0165; J0690; J0696; J1100; J1885; J2003; J2250; J2371; J2405; J2704; J2795; J3010

== ENCOUNTER → 2025-05-14 06:11 | Outpatient (BNV) | payer MEDICARE, SELFPAY | PROVIDERS: PCP Physician Assistant Medical; Visit Provider Orthopaedic Surgery | DX: S83.242A Other tear of medial meniscus, current injury, left knee, initial encounter (principal) | CPT/HCPCS: 29881 ==

== ENCOUNTER 2025-05-26 09:13 | Outpatient (AMB) | payer MEDICARE, SELFPAY ==
--- NOTE | 2025-05-26 09:19 | A.OFFVIS_ITS ---
Intake Visit Reasons: OV- Post Op Lt Knee 05/14/25 Intake Note: Alexander is a 69 year old male who presents with complaints of mild discomfort in his left knee after undergoing left knee arthroscopic surgery on 05/14/2025. He is no longer taking narcotics for his discomfort. He continues with his home stretching program. Allergies lisinopril Allergy (Unknown, Verified 05/26/25 09:20) Unknown Medication List - Last Reconciled 05/26/25 by Hebert Heredia MD albuterol sulfate 90 mcg/actuation 2 puffs inhalation QID PRN alfuzosin ER 10 mg PO BEDTIME aspirin 81 mg PO DAILY atorvastatin 10 mg PO BEDTIME budesonide 0.5 mg inhalation DAILY PRN citalopram 20 mg PO DAILY cyanocobalamin (vitamin B-12) 1,000 mcg PO DAILY finasteride 5 mg PO DAILY folic acid 1 mg PO DAILY ibuprofen 600 mg PO QID PRN Lactobacillus rhamnosus GG (Culturelle) 1 cap PO BEDTIME losartan 25 mg PO DAILY oxycodone 5 mg PO Q6H PRN Oxygen Home Use As directed [facility] Medical History (Updated 05/26/25 @ 09:42 by Hebert Heredia MD) Hx of radiation therapy Hepatitis A Stenosis of esophagus Diabetes Renal mass Morbid obesity Depression HTN (hypertension) Hyperlipidemia History of pharyngeal cancer Diverticulitis Colon polyps BPH (benign prostatic hyperplasia) Arthritis COPD (chronic obstructive pulmonary disease) Head and neck cancer ILD (interstitial lung disease) Pneumonitis Pulmonary nodule Lower extremity edema Dyspnea Chronic bronchitis Cough Chronic restrictive lung disease COVID-19 Pulmonary fibrosis Surgical History (Updated 05/26/25 @ 09:21 by KIA Bright) S/P left knee arthroscopy H/O colonoscopy Hx of knee surgery History of bilateral carpal tunnel release Hx of umbilical hernia repair Social History Household Members: Spouse Household Members Other:: Kristen - Are you a primary home care aide to a significant other at home: No Do you presently have visiting nurse or other home services: No Comment: medicated Patient Tobacco Use Status: Never used Tobacco Second Hand Smoke Exposure: No Current occupational status: retired Current occupation: Right hand dominant Physical Exam Extrem Other: Left knee examination shows that the surgical incisions are healing well, no erythema, minimal discomfort with range of motion Assessment & Plan Assessment & Plan (1) Left knee pain: Code(s): M25.562 - Pain in left knee Category: Medical Plan Mr. Uriostegiu is doing very well after undergoing left knee arthroscopic surgery on 05/14/2025. His sutures were removed and Steri-Strips placed over his incisions. He will gradually progress to activities as tolerated. He will follow up with me on an as-needed basis should his symptoms not plateau at an unacceptable level over the next few months. Feel free to call me at any time should questions regarding his orthopedic management arise. Coding Level of Care Code Global (18414) Diagnoses Left knee pain M25.562
--- OUTSIDE RECORDS SUMMARY | 2025-05-26 10:07 | XMS_ITS | Data Portability ---
Author Organization [place] [facility] E[facility]in [place] Address [address] [place] [address] Care Team Providers Care Supervisor Harvesting Name Role Phone RYDER SOTO Primary Care [...] he could obtain was given to him. Not available 11/19/2022 16:01:30 11/20/2022 11/20/2022 Symptoms [...] address both areas on his next visit. [email or web address] Not available 11/20/2022 12:07:28 12/03/2022 12/03/2022 Alexander [...] on his shoulder. Follow-up in 1 month. [email or web address] Not available 12/03/2022 12:10:52 01/22/2023 01/22/2023 Patient's [...] assess his progress, sooner for any complications. [email or web address] Not available 01/22/2023 10:36:14 02/14/2023 02/14/2023 [facility]ESS [facility] Previous Visit (if applicable) 01/22/2023: [...] : The patient presents to [facility] today for repeat evaluation of his right [...] Below Patient was seen and evaluated by Ta Hernandez PA-C in indirect conjuction with Documenting Provider: Tyrese Santillan MD . He/She agrees with history, physical examination, tests/diagnostic imaging, and treatment plan. Ta Hernandez PA-C [facility] [email or web address] Not available 02/14/2023 09:38:47 Plan of Treatment [...] more view 2022 023 9 [facility], [address], [place], [address], 3 13:28:35 XR, shoulder, 2 or more view 2022 023 [email or web address] 21 [facility], [address], [address], [place], [address], 3 11:36:22 XR, shoulder, 2 or more view 2022 023 [email or web address] 21 [facility], [address], [address], [place], [address], 3 13:41:28 XR, lumbosacral spine, 2 or 3 view 2022 023 [facility] 21 [facility], [address], [address], [place], [address], 3 09:14:19 XR, shoulder, 2 or more view 2022 023 [facility] 21 [facility], [address], [place], [address], 3 16:50:49 Medication Orders None recorded. Patient TargetsNo targets recorded. Patient InstructionsNo instructions recorded. Reason for Referral Physical Therapist Referral for Strain of hamstring tendon Frequency: 2 visits per week for 6 weeksTherapy: Evaluate and TreatModalities:As neededPrecautions - if any:Goals: ROM, HEP, Decrease Pain, Increase Strength and Increase Endurance. Referring Physician: Nadeem Rowley, Orthopedic Surgery, Encounter Date: 11/20/2022 Physical Therapist [...] Scapular and shoulder stabilization Referring Physician: Nadeem Rowley, Orthopedic Surgery, Encounter Date: 12/03/2022 Problems Name Problem SNOMED Code Status Onset Date Resolution Date Notes Provider Name and Address Organization Details Recorded Time Problem 62863729 Active No known active problems Not Available [facility] 5 23:30:13 Impingeme nt syndrome of right shoulder region 84457791802 9102 Active 2022 Hebert Heredia MD [address] [facility],[address], [place], [address] , [place] [facility] 3 11:03:17 Malignant neoplasm of base of tongue 875696197 Active 2022 Malignant tumor of base of tongue Not Available [facility] 5 23:30:13 Closed traumatic dislocati on acromiocl avicular joint 277316760 Active [address], [place], [address] , [place] [facility], [facility] 3 15:41:19 Closed fracture proximal humerus, greater tuberosit y 607880490 Active [address], [place], [address] , [place] [facility] 3 16:01:59 Strain of hamstring tendon 420204808 Active [address], [place], [address] , [place] [facility], [facility] 3 12:04:20 Pain in lumbar spine 504132311 Active [address], [place], [address] , [place] [facility], [facility] 3 12:07:29 Closed traumatic dislocati on acromiocl avicular joint 687895378 Active [address], [place], [address] , [place] [facility], [facility] 3 10:37:07 Problem Notes None recorded. Procedures Surgical History Date Name Laterality Status Provider Name and Address Organization Details Recorded Time operative procedure on knee completed Nuzhat Mcgee [place] [facility] 09/12/2022 10:42:42 Imaging Results None recorded. Procedure Notes None recorded. Medical Equipment None Reported. Allergies Allergen ID Allergen Name Allergen Category Reaction Reaction Severity Criticality Documentation Date Start Date Code Code System Note Provider Name and Address Organization Details Recorded Time 83307 lisinopri l medicatio n Not available Not available Not available 03/23/20252 30368 RxNorm React ion: Other (See Comme nts), sever ity: Unkno wn;co ugh Not Available [facility] 01:15:44 Medications Name Sig Start Date Stop Date [...] Not Available atorvastati n 10 mg tablet Take 1 tablet (10 mg total) by mouth every evening. active Not Available Not Available No t [...] Not Available Not Available aspirin 81 mg tablet,tamra yed release Take 1 tablet (81 mg total) by mouth daily. active Not Available Not Available No t Available aspirin 81 mg capsule,del ayed release Take by oral route. 02/14 completed Not Available Not Available Not Available amoxicillin 400 mg-nickyu m clavulanate 57 mg/5 mL oral suspension [...] Not Available Not Available No t Available codeine 10 mg-guaifene sin 100 mg/5 mL Syrup active Not Available Not Available Not Available budesonide 0.5 mg/2 mL suspension for [...] Available Not Available gabapentin 100 mg capsule active Not Available Not Available Not Available levalbutero [...] Available Not Available finasteride 5 mg tablet 2022 active Not Available Not Available Not Avai lable oxycodone 5 mg tablet TAKE 1 TABLET [...] 1,000 mg tablet,exte nded release 24hr (osmotic) Take 1 tablet (1,000 mg total) by mouth every morning with breakfast . active Not Available Not Available No t Available Tussin Cough (DM only) 15 mg capsule TAKE 2 CAPSULES EVERY 6 HOURS NEEDED FOR COUGH FOR 14 DAYS 01/22 completed Not Available Not Available Not Available hydrochloro thiazide 01/22 completed Not Available Not Available Not Available benzonatate 01/22 completed Not Available Not Available Not Available oxybutynin 01/22 completed Not Available Not Available Not Available sodium fluoride 1.1 % dental paste Place 1 applicati on. onto teeth every night at bedtime. 2022 active Not Available Not Available Not Avai lable hydrochloro thiazide 12.5 mg tablet TAKE 1 TABLET BY MOUTH EVERY DAY active Not Available Not Available No t Available diclofenac 1 % topical gel APPLY 2 GRAMS TOPICALY 4 TIMES PER DAY FOR 10 DAYS 01/22 completed Not Available Not Available Not Available lidocaine 2 %-glycerin mucosal kit Use as directed 5 mL in the mouth or throat as needed for pain. 2022 active Not Available Not Available Not Avai lable hyaluronate sodium, stabilized 88 mg/4 mL intra-artic ular syringe 05/01 completed Not Available Not Available Not Available albuterol sulfate 90 mcg/actuati on breath activated powder inhaler Inhale into the lungs. active Not Available Not Available No t Available Trelegy Ellipta 100 mcg-62.5 mcg-25 mcg powder for inhalation INHALE ONCE DAILY FOR 30 DAYS 02/14 completed Not Available Not Available Not Available Vitals Date Recorded Respiratory rate Provider Name a nd Address Organization Details Last Updated DateTime 08/01/2023 12 /min Not Available [facility] 00:51:12 Date Recorded Body height Body mass index (BMI) Body weight Provider Name and Address Organization Details Last Updated DateTime 11/19/2022 167.64 cm 43.6 kg/m2 340110.[address] [place] [facility], 11/19/2022 14:42:42 Date Recorded Body height Body mass index (BMI) Body weight Provider Name and Address Organization Details Last Updated DateTime 11/20/2022 167.64 cm 43.6 kg/m2 843261.94 g [facility] 11/20/2022 11:20:05 Date Recorded Body height Body mass index (BMI) Body weight Provider Name and Address Organization Details Last Updated DateTime 12/03/2022 167.64 cm 43.6 kg/m2 259550.94 g Jessica Jauregui [facility] 12/03/2022 11:51:56 Date Recorded Body height Body mass index (BMI) Body weight Provider Name and Address Organization Details Last Updated DateTime 01/22/2023 167.64 cm 43.6 kg/m2 411360.94 g Jessica Jauregui [facility] 01/22/2023 10:03:10 Date Recorded Heart rate Oxygen saturation Systolic And Diastolic Provider Name and Address Organization Details Last Updated DateTime 01/22/2023 85 /min 99 % 142/70 mm[Hg] Not Available [facility] 03/23/2025 00:51:12 Date Recorded Body height Body mass index (BMI) Body weight Provider Name and Address Organization Details Last Updated DateTime 02/14/2023 167.64 cm 43.6 kg/m2 328091.94 g Jessica Jauregui [facility] 02/14/2023 08:59:16 Date Recorded Body mass index (BMI) Body weight Provider Name and Address Organization Details Last Updated DateTime 03/19/2024 39.14 kg/m2 532594 g Not Available [facility] 03/23/2025 00:51:12 Date Recorded Body height Provider Name an d Address Organization Details Last Updated DateTime 03/26/2023 162.6 cm Not Available [facility] 00:51:12 Social History Question Answer Notes LastModified by Organizat ion Details LastModified Time Tobacco Smoking Status Former Smoker [place], [place] - [facility] 11/19/2022 14:45:22 When Did You Quit Smoking? 16+yearssinc elastcigaret te [email or web address] Information not available 11/19/2022 Sex: Unknown Functional Status Question Answer Note LastModified by Organizat ion Details LastModified Time Do you use any illicit or recreational drugs? No Information not available 11/19/2022 Do you or have you ever used any other forms of tobacco or nicotine? No Information not available 11/19/2022 What is your level of alcohol consumption? Moderate [email or web address] Information not available 11/19/2022 Mental Status None [...] Diagnosis SNOMED-CT Code Diagnosis ICD10 Code Diagnosis IMO Codes Diagnosis Note 515 MD MADY [facility] [address] [address] 09/12/2022 10:26:23 09/12/2022 11:01:35 Impingement syndrome of right shoulder region 9233863245 80469 M75.41 91229 NADEEM ROWLEY PA-C [place] [address] 11/19/2022 14:33:34 11/19/2022 16:00:44 Impingement syndrome of right shoulder region 9839442561 00495 M75.41 Closed tra umatic dislocation acromioclavicular joint 526794049 S43.121A Closed fra cture proximal humerus, greater tuberosity 268644782 S42.254A 12438 NADEEM ROWLEY PA-C [place] [address] 11/20/2022 10:59:36 11/20/2022 12:11:44 Pain in lumbar spine 970034778 M54.51 Strain of hamstring tendon 978200141 S76.312A [address] [place] [address] 12/03/2022 11:38:19 12/03/2022 12:22:11 Impingement syndrome of right shoulder region 7229295836 05498 M75.41 Strain of hamstring tendon 975677401 S76.312A Closed fra cture proximal humerus, greater tuberosity 076696541 S42.254A [address] [address] [address] 01/22/2023 09:36:57 01/22/2023 10:31:47 Closed fracture proximal humerus, greater tuberosity 282780130 S42.254A Closed tra umatic dislocation acromioclavicular joint 554188472 S43.121A Grade 2 [address] [address] [address] 02/14/2023 08:54:55 02/14/2023 09:33:42 Closed fracture proximal humerus, greater tuberosity 571366389 S42.254A Health Concerns Section Related Observation LastModified by Organization Detai ls LastModified Time None Recorded Concern Status LastModified by Organization Details LastModified Time None Recorded Advance Directives Directive None Recorded Payers Insurance Date Sequence Insurance Name Policy Number Policy Kelley Covered Member ID Kelley Member ID Guarantor Name 09/08/2022 1 [place] [employer] Alexander Uriostegui [id number] Alexander Uriostegui 10/17/2022 2 [place]) [id number] Alexander Uriostegui [id number] Alexander Uriostegui Notes Date Note Type Note Provider Name and Address Organization Details Recorded Time 11/19/2022 text/html ROS as noted in the HPI Patient is a pleasant 67-year-old male who [...] with any motion in his shoulder. NADEEM ROWLEY PA-C [address], [place], [address], [place] - [facility] 11/19/2022 16:04:10 11/20/2022 text/html Patient is [...] posterior thigh. No numbness or tingling. NADEEM ROWLEY PA-C [address], [place], [address], [facility] 11/20/2022 12:11:01 12/03/2022 text/html ROS as noted in the HPI Mario returns today for follow-up of right shoulder [...] the soonest appointment he can get in [place] at [facility]. His leg and back are making improvements. His shoulder still bothers him at times and with specific movements [address], [place], [address], [facility] - [facility] 12/03/2022 12:16:13 01/22/2023 text/html ROS as noted in the HPI Alexander returns today for follow-up of right [...] No numbness or tingling. No weakness. NADEEM ROWLEY PA-C [address], [place], [address], [place] [facility] 01/22/2023 10:37:45
== END 2025-05-26 09:39 | disposition home or self-care (01) ==
LOC: HO.HOS 09:14
PROVIDERS: PCP Physician Assistant Medical; Visit Provider Orthopaedic Surgery
DX: M25.562 Pain in left knee (principal)
CPT/HCPCS: 99024

== ENCOUNTER → 2025-05-26 09:13 | Outpatient (BNVA) | payer MEDICARE, SELFPAY | PROVIDERS: PCP Physician Assistant Medical; Visit Provider Orthopaedic Surgery | DX: M25.562 Pain in left knee (principal); Z98.890 Other specified postprocedural states; Z48.02 Encounter for removal of sutures; Z79.82 Long term (current) use of aspirin | CPT/HCPCS: 99212 ==